=== PATIENT | female | born 1945 | race Caucasian/White ===

== ENCOUNTER 2022-08-22 07:27 | Outpatient (OUT) | payer MEDICARE, SELFPAY ==
[2022-08-22 07:59] LABS: Basophils Absolute Auto 0.1 10^3/uL (0.0-0.1); Basophils Percent Auto 0.7 % (0.2-2.0); Eosinophils Absolute Auto 0.1 10^3/uL (0.0-0.7); Hematocrit 51.1 % (36.0-48.0); Hemoglobin 16.5 g/dL (12.0-16.0); Immature Granulocytes Abs Auto 0.03 10^3/uL (0.00-0.03); Immature Granulocytes Pct Auto 0.4 % (0.0-0.5); Lymphocytes Absolute Auto 1.6 10^3/uL (1.2-3.8); Lymphocytes Percent Auto 22.8 % (20.5-60.0); Mean Corpuscular HGB Conc 32.3 g/dL (29.9-35.2); Mean Corpuscular Hemoglobin 29.3 pg (26.7-34.0); Mean Corpuscular Volume 90.6 fL (81.0-99.0); Mean Platelet Volume 9.6 fL (9.5-13.5); Monocytes Absolute Auto 0.5 10^3/uL (0.3-0.8); Monocytes Percent Auto 6.8 % (1.7-12.0); Neutrophils Absolute Auto 4.7 10^3/uL (1.4-6.5); Neutrophils Percent Auto 67.3 % (43.0-75.0); Platelet Count 297 10^3/uL (150-450); Red Blood Count 5.64 10^6/uL (4.20-5.40); White Blood Count 6.9 10^3/uL (4.0-11.0)
[2022-08-22 08:13] LABS: Bilirubin Urine NEGATIVE (NEGATIVE); Blood Urine TRACE-I (NEGATIVE); Clarity Urine CLEAR (CLEAR); Color Urine LT. YELLOW (YELLOW); Glucose Urine UA NEGATIVE (NEGATIVE); Ketones Urine NEGATIVE (NEGATIVE); Leukocyte Esterase Urine TRACE (NEGATIVE); Nitrite Urine NEGATIVE (NEGATIVE); Protein Urine NEGATIVE (NEG/TRACE); Specific Gravity Urine 1.015 (1.005-1.025); Urobilinogen Urine 0.2 EU/dL (0.2-1.0); pH Urine 5.5 (5.0-9.0)
[2022-08-22 08:19] LABS: Estimated Average Glucose 123 mg/dL; Glycohemoglobin A1C 5.9 % (4.5-6.2)
[2022-08-22 08:21] LABS: Microalbumin Urine Random <1.3 mg/dL (<=30.0)
[2022-08-22 08:26] LABS: Alanine Aminotransferase 26 U/L (14-59); Albumin Level 3.9 g/dL (3.4-5.0); Alkaline Phosphatase 95 U/L (46-116); Anion Gap 11.5; Aspartate Amino Transferase 16 U/L (15-37); Bilirubin Total 0.7 mg/dL (0.2-1.0); Calcium 9.7 mg/dL (8.5-10.1); Carbon Dioxide 31.7 mmol/L (21.0-32.0); Chloride 102 mmol/L (98-107); Chol HDL Ratio 3.8; Cholesterol 194 mg/dL (<=200); Estimated GFR (African America >60 (>=60); Estimated GFR (Non-African Ame 58 (>=60); Globulin 4.1 g/dL; Glucose 109 mg/dL (74-106); HDL Cholesterol 51 mg/dL (40-60); Potassium 3.2 mmol/L (3.5-5.1); Sodium 142 mmol/L (136-145); Triglycerides 185 mg/dL (<=150)
[2022-08-22 08:46] LABS: Bacteria Urine TRACE #/HPF (NONE SEEN); Cast Seen? NONE SEEN #/LPF (NONE SEEN); Crystals Seen? None Seen #/HPF (None Seen); Mucus Urine NONE SEEN (NONE SEEN); RBC Urine 0-2 #/HPF (0-2); Squamous Epithelial Cell Urine RARE #/LPF (NONE/RARE); WBC Urine 0-2 #/HPF (NONE SEEN)
== END 2022-08-22 07:28 | disposition home or self-care (01) ==
LOC: LAB 07:31
PROVIDERS: PCP Nurse Practitioner; Visit Provider Nurse Practitioner
DX: I10 Essential (primary) hypertension (principal); E11.9 Type 2 diabetes mellitus without complications
CPT/HCPCS: 36415; 80053; 80061; 81001; 82043; 83036; 85025

== ENCOUNTER 2022-09-04 06:59 | Outpatient (OUT) | payer MEDICARE, SELFPAY ==
--- NOTE | 2022-09-04 07:54 | CA_ITS ---
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 PVR waveforms with normal upstroke, amplitude and dicrotic notch Right: - no significant pressure gradient between cuffs - normal KVNG, TBI Left: - significant pressure gradient between the calf and DP cuffs - normal KVNG, TBI Impression: - normal arterial evaluation of the lower extremities without hemodynamic impairment of the B/L lower extremities at rest (right KVNG 1.08, left KVNG 1.04) Electronically Signed On 09-05-2022 7:25:26 EDT by JUANITA DIEGO
== END 2022-09-04 07:00 | disposition home or self-care (01) ==
PROVIDERS: PCP Nurse Practitioner; Visit Provider Nurse Practitioner
DX: I73.9 Peripheral vascular disease, unspecified (principal)
CPT/HCPCS: 93923

== ENCOUNTER 2022-09-28 08:11 | Outpatient (OUT) | payer MEDICARE, SELFPAY ==
[2022-09-28 09:02] LABS: Potassium 3.4 mmol/L (3.5-5.1)
== END 2022-09-28 08:12 | disposition home or self-care (01) ==
LOC: LAB 08:12
PROVIDERS: PCP Nurse Practitioner; Visit Provider Nurse Practitioner
DX: E87.6 Hypokalemia (principal)
CPT/HCPCS: 36415; 84132

== ENCOUNTER 2022-10-23 09:13 | Outpatient (OUT) | payer MEDICARE, SELFPAY ==
[2022-10-23 09:59] LABS: Potassium 4.1 mmol/L (3.5-5.1)
== END 2022-10-23 09:14 | disposition home or self-care (01) ==
LOC: LAB 09:14
PROVIDERS: PCP Nurse Practitioner; Visit Provider Nurse Practitioner
DX: E87.6 Hypokalemia (principal)
CPT/HCPCS: 36415; 84132

== ENCOUNTER 2022-11-14 06:44 | Outpatient (OUT) | payer MEDICARE, SELFPAY ==
[2022-11-14 07:58] LABS: Alanine Aminotransferase 27 U/L (14-59); Albumin Globulin Ratio 1.1; Alkaline Phosphatase 95 U/L (46-116); Anion Gap 10.5; Aspartate Amino Transferase 18 U/L (15-37); BUN Creatinine Ratio 16.7; Bilirubin Total 0.8 mg/dL (0.2-1.0); Calcium 9.5 mg/dL (8.5-10.1); Carbon Dioxide 31.2 mmol/L (21.0-32.0); Chloride 100 mmol/L (98-107); Chol HDL Ratio 3.5; Cholesterol 159 mg/dL (<=200); Estimated GFR (African America 53 (>=60); Estimated GFR (Non-African Ame 44 (>=60); Globulin 3.8 g/dL; Glucose 99 mg/dL (74-106); HDL Cholesterol 45 mg/dL (40-60); Potassium 3.7 mmol/L (3.5-5.1); Sodium 138 mmol/L (136-145); Total Protein 7.8 g/dL (6.4-8.2); Triglycerides 154 mg/dL (<=150); VLDL CHOLESTEROL 30.8 mg/dL
== END 2022-11-14 06:45 | disposition home or self-care (01) ==
LOC: LAB 06:45
PROVIDERS: PCP Nurse Practitioner; Visit Provider Nurse Practitioner
DX: E78.5 Hyperlipidemia, unspecified (principal)
CPT/HCPCS: 36415; 80053; 80061

== ENCOUNTER 2023-01-23 07:42 | Outpatient (OUT) | payer MEDICARE, SELFPAY ==
[2023-01-23 09:37] LABS: Alanine Aminotransferase 24 U/L (14-59); Albumin Globulin Ratio 1.1; Albumin Level 3.8 g/dL (3.4-5.0); Alkaline Phosphatase 97 U/L (46-116); Anion Gap 12.5; Aspartate Amino Transferase 17 U/L (15-37); BUN Creatinine Ratio 18.8; Bilirubin Total 0.7 mg/dL (0.2-1.0); Calcium 9.1 mg/dL (8.5-10.1); Carbon Dioxide 31.3 mmol/L (21.0-32.0); Chloride 106 mmol/L (98-107); Chol HDL Ratio 3.9; Cholesterol 200 mg/dL (<=200); Estimated GFR (African America 57 (>=60); Estimated GFR (Non-African Ame 47 (>=60); Globulin 3.6 g/dL; Glucose 101 mg/dL (74-106); HDL Cholesterol 51 mg/dL (40-60); LDL Cholesterol Calculated 123.8 mg/dL; Potassium 3.8 mmol/L (3.5-5.1); Sodium 146 mmol/L (136-145); Total Protein 7.4 g/dL (6.4-8.2); Triglycerides 126 mg/dL (<=150); VLDL CHOLESTEROL 25.2 mg/dL
[2023-01-23 09:43] LABS: Estimated Average Glucose 117 mg/dL; Glycohemoglobin A1C 5.7 % (4.5-6.2)
== END 2023-01-23 07:43 | disposition home or self-care (01) ==
LOC: LAB 07:43
PROVIDERS: PCP Nurse Practitioner; Visit Provider Nurse Practitioner
DX: E78.2 Mixed hyperlipidemia (principal); E11.9 Type 2 diabetes mellitus without complications; I10 Essential (primary) hypertension
CPT/HCPCS: 36415; 80053; 80061; 83036

== ENCOUNTER 2023-02-15 07:48 | Outpatient (OUT) | payer MEDICARE, SELFPAY ==
--- OUTSIDE RECORDS SUMMARY | 2023-02-15 07:51 | XMS_ITS | CCD ---
Author Name Unknown Address [address] [facility] [address] [place] [id number] Organization [facility] Care Team Providers Care Marketing Analytics Lead Name Role Phone PUMA, DR CHAVEZ Admitting Unavailable WANDA, DR CROCKETT Primary Care Unavailable PUMA, DR CHAVEZ Attending Unavailable PUMA, DR CHAVEZ Consulting Unavailable FLORA, DO Admitting Unavailable EMEKA, DR CAITLIN Parra Consulting Unavailable WANDA, DR CROCKETT Primary Care Unavailable FLORA, DO Attending Unavailable FLORA, DO Consulting Unavailable BINDU, BHAVNA Attending Unavailable BINDU, BHAVNA Consulting Unavailable BINDU, BHAVNA Admitting Unavailable WANDA, DR CROCKETT Primary Care Unavailable FLORA, DO Consulting Unavailable JOHS, VIKASH Consulting Unavailable Ash, Caitlin Consulting Unavailable WANDA, DR CROCKETT Attending Unavailable WANDA, DR CROCKETT Consulting Unavailable WANDA, DR CROCKETT Primary Care Unavailable HOUSE, DR CROCKETT Admitting Unavailable HOUSE, DR CROCKETT Attending Unavailable HOUSE, DR CROCKETT Consulting Unavailable HOUSE, DR CROCKETT Primary Care Unavailable HOUSE, DR CROCKETT Admitting Unavailable RANI, LALI Attending Unavailable Rani [facility], Lali Edgar Primary Care Provider Allergies Allergy Classification Reported Allergen(s) Allergy Type Date of Onset Reaction(s) Facility (1 source) Acetaminophen / HYDROcodone Drug Allergy 07-11-19 13 [facility] (1 source) Acetaminophen / oxyCODONE Drug Allergy 07-11-19 13 [facility] (1 source) Sulfonamides (Antibiotic) Drug allergy (disorder) 07-11-19 13 [facility] (1 source) Acetaminophen / HYDROcodone Drug Allergy 07-09-19 20 Hallucinations [facility] (1 source) Acetaminophen / oxyCODONE Drug Allergy 06-25-19 20 Hallucinations, Vomiting [facility] (1 source) Sulfonamides (Antibiotic) Propensity to adverse reactions to drug 10-11-19 17 Hives, Vomiting [facility] Medications Current Medications Medication Drug Class(es) Dates Sig (Normalized) Sig (Original) [id number] 200 actuat albuterol 0.09 mg/actuat metered dose inhaler (1 source) beta2-Adrener gic Agonist Start: 1 take 2 puff(s) by inhalation in the morning albuterol (PROVENTIL HFA;VENTOLIN HFA) 90 mcg/actuation inhaler Inhale 2 puffs in the morning. 0 04/30/2020 Active allopurinol 100 mg oral tablet (1 source) Xanthine Oxidase Inhibitor take 1 tablet by mouth in the morning allopurinoL (ZYLOPRIM) 100 mg tablet Take 1 tablet (100 mg total) by mouth in the morning. 0 Active atenolol 100 mg oral tablet (1 source) beta-Adrenerg ic Danielle take 1 tablet by mouth in the morning atenoloL (TENORMIN) 100 mg tablet Take 1 tablet (100 mg total) by mouth in the morning. 0 Active busPIRone hydrochloride 10 mg oral tablet (1 source) Start: 0 take 1 tablet by mouth in the morning, then take 1 tablet by mouth at bedtime busPIRone (BUSPAR) 10 mg tablet Take 1 tablet (10 mg total) by mouth in the morning and 1 tablet (10 mg total) before bedtime. 0 07/10/2019 Active hydroCHLOROthiazide 25 mg oral tablet (1 source) Thiazide Diuretic take 1 tablet by mouth once daily hydroCHLOROthiazide (HYDRODIURIL) 25 mg tablet Take 1 tablet (25 mg total) by mouth daily. 0 Active metFORMIN hydrochloride 500 mg oral tablet (1 source) Biguanide take 1 tablet by mouth once daily at breakfast metFORMIN (GLUCOPHAGE) 500 mg tablet Take 1 tablet (500 mg total) by mouth daily with breakfast. 0 Active omeprazole 20 mg delayed release oral capsule (1 source) Proton Pump Inhibitor Start: 0 take 1 capsule by mouth in the morning omeprazole (PriLOSEC) 20 mg capsule Take 1 capsule (20 mg total) by mouth in the morning. 0 06/11/2019 Active potassium chloride 10 meq extended release oral tablet (1 source) Start: 0 potassium chloride (K-TAB,KLOR-CON) 10 MEQ CR tablet Take 2 tablets (20 mEq total) by mouth daily. 90 tablet 0 09/03/2019 Active Problems Active Problems Problem Classification Problem Date Documented Da te Episodic/Chronic Anxiety disorders (1 source) Anxiety disorder, unspecified; Translations: [ANXIETY DISORDER UNSPECIFIED] Onset: 06-10-2020 Chronic Cancer of bladder (1 source) Malignant neoplasm, overlapping lesion of bladder; Translations: [Malignant neoplasm of overlapping sites of bladder] Onset: 10-10-2016 05-01-2022 Chronic Cardiac dysrhythmias (1 source) Nonsustained ventricular tachycardia ; Translations: [Nonsustained ventricular tachycardia] Onset: 06-25-2019 02-15-2022 Chronic Chronic obstructive pulmonary disease and bronchiectasis (1 source) Chronic obstructive pulmonary disease, unspecified; Translations: [COPD UNSPECIFIED] Onset: 04-28-2021 Chronic Conduction disorders (3 sources) Presence of cardiac pacemaker; Translations: [Atrioventricular conduction disorder] Onset: 07-09-2019 02-15-2022 Chronic Diabetes mellitus without complication (5 sources) Type 2 diabetes mellitus without complications; Translations: [TYPE 2 DM WITHOUT COMPLICATIONS] Onset: 02-24-2021 Chronic Esophageal disorders (1 source) Gastro-esophageal reflux disease without esophagitis; Translations: [GERD WITHOUT ESOPHAGITIS] Onset: 02-28-2021 Chronic Essential hypertension (2 sources) Essential (primary) hypertension; Translations: [Essential hypertension] Onset: 07-09-2019 02-15-2022 Chronic Gout and other crystal arthropathies (1 source) Gout, unspecified; Translations: [GOUT UNSPECIFIED] Onset: 04-28-2021 Chronic Hypertension with complications and secondary hypertension (1 source) Hypertensive chronic kidney disease with stage 1 through stage 4 chronic kidney disease, or unspecified chronic kidney disease; Translations: [HTN CKD W/STAGE 1-4 CKD/UNS CKD] Onset: 06-10-2020 Chronic Other 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 (1 source) 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; Translations: [PROP DRAWER USE ORAL HYPOGLYCEMIC DX] Onset: 04-28-2021 Episodic Other aftercare (1 source) Other [facility] (current) drug therapy; Translations: [OTH INTERMEDIATE CURRENT DRUG THERAPY] Onset: 04-28-2021 Episodic Other connective tissue disease (3 sources) Pain in left toe(s); Translations: [PAIN IN LEFT TOES] Onset: 04-27-2021 Episodic Screening and history of mental health and substance abuse codes (1 source) Personal history of nicotine dependence; Translations: [PERSONAL HISTORY OF NICOTINE DEPEND] Onset: 04-28-2021 Episodic Unclassified (1 source) CHRN KIDNEY DISEASE STG 3 UNSP; Translations: [CHRN KIDNEY DISEASE STG 3 UNSP] Onset: 06-10-2020 Unclassified (1 source) CONTACT W/AND (SUSP) EXPOS COVID-19; Translations: [CONTACT W/AND (SUSP) EXPOS COVID-19] Onset: 06-10-2020 Past or Other Problems Problem Classification Problem Date Documented Da te Episodic/Chronic Acute and unspecified renal failure (1 source) Acute kidney failure, unspecified; Translations: [ACUTE KIDNEY FAILURE UNSPECIFIED] Onset: 06-10-2020 Episodic Allergic reactions (1 source) Unspecified contact dermatitis, unspecified cause; Translations: [UNS CONTACT DERMATITIS UNS CAUSE] Onset: 05-25-2020 Episodic Conditions associated with dizziness or vertigo (1 source) Dizziness and giddiness; Translations: [DIZZINESS AND GIDDINESS] Onset: 06-10-2020 Episodic Fluid and electrolyte disorders (4 sources) Hypokalemia; Translations: [HYPOKALEMIA] Onset: 06-14-2020 Episodic Other liver diseases (1 source) Abnormal levels of other serum enzymes; Translations: [ABNORMAL LEVELS OTHER SERUM ENZYMES] Onset: 06-10-2020 Episodic Other skin disorders (3 sources) Rash and other nonspecific skin eruption; Translations: [RASH OTH NONSPECIFIC SKIN ERUPTION] Onset: 05-23-2020 Episodic Syncope (1 source) Syncope; Translations: [Syncope and collapse] Onset: 06-25-2019 02-15-2022 Episodic Results Test Name Value Interpretation Reference Range Facility URIC ACID SERUMon 04-27-2021 Urate [Mass/Vol] 7.6 mg/dL Critically high 2.5-6.2 [facility] Comment on above: Performed By: #### U LUC #### [facility] [address] [place] [address] Dr. Vicki Dempsey CBC AUTO DIFFon 02-24-2021 BASO # 0.1 103/ul Normal 0.0-0.1 [facility] Comment on above: Performed By: #### C BC #### [facility] [address] [place] [address] Dr. Vicki Dempsey Basophils/100 WBC (Bld) 1.0 % Normal 0.2-2.0 [facility] Comment on above: Performed By: #### C BC #### [facility] [address] [place] [address] Dr. Vicki Dempsey EO # 0.2 103/ul Normal 0.0-0.7 [facility] Comment on above: Performed By: #### C BC #### [facility] [address] [place] [address] Dr. Vicki Dempsey Eosinophils/100 WBC (Bld) 2.7 % Normal 0.9-7.0 [facility] Comment on above: Performed By: #### C BC #### [facility] [address] [place] [address] Dr. Vicki Dempsey Erythrocyte distribution width (RBC) [Ratio] 12.7 % Normal 11.0-15.0 [facility] Comment on above: Performed By: #### C BC #### [facility] [address] [place] [address] Dr. Vicki Dempsey Hematocrit (Bld) [Volume fraction] 51.0 % Critically high 36.0-48.0 [facility] Comment on above: Performed By: #### C BC #### [facility] [address] [place] [address] Dr. Vicki Dempsey Hemoglobin (Bld) [Mass/Vol] 16.6 g/dL Critically high 12.0-16.0 [facility] Comment on above: Performed By: #### C BC #### [facility] [address] [place] [address] Dr. Vicki Dempsey IG # 0.02 10e3/ul Normal 0.00-0.03 [facility] Comment on above: Performed By: #### C BC #### [facility] [address] [place] [address] Dr. Vicki Dempsey IG % 0.3 % Normal 0.0-0.5 [facility] Comment on above: Performed By: #### C BC #### [facility] [address] [address] [address] Vicki Dempsey LYMPH # 2.3 103/ul Normal 1.2-3.8 [facility] Comment on above: Performed By: #### C BC #### [facility] [address] [address] [address] Vicki Dempsey Lymphocytes/100 WBC (Bld) 31.1 % Normal 20.5-60.0 [facility] Comment on above: Performed By: #### C BC #### [facility] [address] [place] [address] Dr. Vicki Dempsey MANUAL DIFF REQ NO Normal [facility] Comment on above: Performed By: #### C BC #### [facility] [address] [place] [address] Dr. Vicki Dempsey MCH (RBC) [Entitic mass] 29.0 pg Normal 26.7-34.0 [facility] Comment on above: Performed By: #### C BC #### [facility] [address] [place] [address] Dr. Vicki Dempsey MCHC (RBC) [Mass/Vol] 32.5 g/dL Normal 29.9-35.2 [facility] Comment on above: Performed By: #### C BC #### [facility] [address] [place] [address] Dr. Vicki Dempsey MCV (RBC) [Entitic vol] 89.0 fL Normal 81.0-99.0 [facility] Comment on above: Performed By: #### C BC #### [facility] [address] [place] [address] Dr. Vicki Dempsey MONO # 0.6 103/ul Normal 0.3-0.8 [facility] Comment on above: Performed By: #### C BC #### [facility] [address] [place] [address] Dr. Vicki Dempsey Monocytes/100 WBC (Bld) 8.7 % Normal 1.7-12.0 [facility] Comment on above: Performed By: #### C BC #### [facility] [address] [address] [address] Vicki Dempsey NEUT # 4.1 103/ul Normal 1.4-6.5 [facility] Comment on above: Performed By: #### C BC #### [facility] [address] [address] [address] Vicki Dempsey Neutrophils/100 WBC (Bld) 56.2 % Normal 43.0-75.0 [facility] Comment on above: Performed By: #### C BC #### [facility] [address] [place] [address] Dr. Vicki Dempsey Platelet mean volume (Bld) [Entitic vol] 9.6 fL Normal 9.5-13.5 [facility] Comment on above: Performed By: #### C BC #### [facility] [address] [place] [address] Dr. Vicki Dempsey PLT 298 103/ul Normal 150-450 [facility] Comment on above: Performed By: #### C BC #### [facility] [address] [place] [address] Dr. Vicki Dempsey RBC 5.73 106/ul Critically high 4.20-5.40 [facility] Comment on above: Performed By: #### C BC #### [facility] [address] [place] [address] Dr. Vicki Dempsey WBC 7.3 103/ul Normal 4.0-11.0 [facility] Comment on above: Performed By: #### C BC #### [facility] [address] [place] [address] Dr. Vicki Dempsey GLYCOHEMOGLOBIN A1Con 2021 ADA RECOMMENDATION ADA THERAPEUTIC TARGET 6.0 - 7.0 ACTION SUGGESTED > 7.0 Normal [facility] Comment on above: Performed By: #### A 1C #### [facility] [address] [place] [address] Dr. Vicki Dempsey Glucose [Mass/Vol] 128 mg/dL Normal [facility] Comment on above: Performed By: #### A 1C #### [facility] [address] [place] [address] Dr. Vicki Dempsey HbA1c (Bld) [Mass fraction] 6.1 % Critically high <=6.0 [facility] Comment on above: Performed By: #### A 1C #### [facility] [address] [place] [address] Dr. Vicki Dempsey MICROALBUMIN, RAND URon 02-12 mALB 2.1 mg/L Normal <=30.0 [facility] Comment on above: Performed By: #### U LUC #### [facility] [address] [place] [address] Dr. Vicki Dempsey PROF 14(COMP METB)on 022 Albumin [Mass/Vol] 4.0 g/dL Normal 3.5-5.0 [facility] Comment on above: Performed By: #### C MP #### [facility] [address] [place] [address] Dr. Vicki Dempsey Albumin/Globulin [Mass ratio] 1.0 {ratio} Normal [facility] Comment on above: Performed By: #### C MP #### [facility] [address] [place] [address] Dr. Vicki Dempsey ALP [Catalytic activity/Vol] 104 U/L Normal 38-126 [facility] Comment on above: Performed By: #### C MP #### [facility] [address] [place] [address] Dr. Vicki Dempsey ALT [Catalytic activity/Vol] 30 U/L Normal 9-52 [facility] Comment on above: Performed By: #### C MP #### [facility] [address] [place] [address] Dr. Vicki Dempsey Anion gap [Moles/Vol] 11.2 mmol/L Normal [facility] Comment on above: Performed By: #### C MP #### [facility] [address] [place] [address] Dr. Vicki Dempsey AST [Catalytic activity/Vol] 19 U/L Normal 14-36 [facility] Comment on above: Performed By: #### C MP #### [facility] [address] [place] [address] Dr. Vicki Dempsey Bilirubin [Mass/Vol] 0.5 mg/dL Normal 0.2-1.3 [facility] Comment on above: Performed By: #### C MP #### [facility] [address] [address] [address] Vicki Dempsey Calcium [Mass/Vol] 9.6 mg/dL Normal 8.4-10.2 [facility] Comment on above: Performed By: #### C MP #### [facility] [address] [address] [address] Vicki Dempsey Chloride [Moles/Vol] 99 mmol/L Normal 98-107 [facility] Comment on above: Performed By: #### C MP #### [facility] [address] [place] [address] Dr. Vicki Dempsey CO2 [Moles/Vol] 32.1 mmol/L Critically high 22.0-30.0 [facility] Comment on above: Performed By: #### C MP #### [facility] [address] [place] [address] Dr. Vicki Dempsey Creatinine [Mass/Vol] 1.07 mg/dL Critically high 0.52-1.04 [facility] Comment on above: Performed By: #### C MP #### [facility] [address] [place] [address] Dr. Vicki Dempsey EGFR-AF [place]LANDER >60 Normal >=60 [facility] Comment on above: Performed By: #### C MP #### [facility] [address] [place] [address] Dr. Vicki Dempsey EGFR-NON AF [place]ER 50 mL/min/1.73m2 Critically low >=60 [facility] Comment on above: Performed By: #### C MP #### [facility] [address] [place] [address] Dr. Vicki Dempsey Globulin (S) [Mass/Vol] 3.9 g/dL Normal [facility] Comment on above: Performed By: #### C MP #### [facility] [address] [place] [address] Dr. Vicki Dempsey Glucose [Mass/Vol] 100 mg/dL Normal 74-106 [facility] Comment on above: Performed By: #### C MP #### [facility] [address] [place] [address] Dr. Vicki Dempsey Potassium [Moles/Vol] 3.3 mmol/L Critically low 3.4-5.0 [facility] Comment on above: Performed By: #### C MP #### [facility] [address] [place] [address] Dr. Vicki Dempsey Protein [Mass/Vol] 7.9 g/dL Normal 6.1-8.2 [facility] Comment on above: Performed By: #### C MP #### [facility] [address] [place] [address] Dr. Vicki Dempsey Sodium [Moles/Vol] 139 mmol/L Normal 137-145 [facility] Comment on above: Performed By: #### C MP #### [facility] [address] [place] [address] Dr. Vicki Dempsey Urea nitrogen [Mass/Vol] 13.0 mg/dL Normal 7.0-17.0 [facility] Comment on above: Performed By: #### C MP #### [facility] [address] [place] [address] Dr. Vicki Dempsey Urea nitrogen/Creatinine [Mass ratio] 12.1 mg/mg Normal [facility] Comment on above: Performed By: #### C MP #### [facility] [address] [place] [address] Dr. Vicki Dempsey PROF 14(COMP METB)on 021 Albumin [Mass/Vol] 3.8 g/dL Normal 3.5-5.0 [facility] Comment on above: Performed By: #### U LUC #### [facility] [address] [place] [address] Dr. Vicki Dempsey Albumin/Globulin [Mass ratio] 0.9 {ratio} Normal [facility] Comment on above: Performed By: #### U LUC #### [facility] [address] [place] [address] Dr. Vicki Dempsey ALP [Catalytic activity/Vol] 82 U/L Normal 38-126 [facility] Comment on above: Performed By: #### U LUC #### [facility] [address] [place] [address] Dr. Vicki Dempsey ALT [Catalytic activity/Vol] 21 U/L Normal 9-52 [facility] Comment on above: Performed By: #### U LUC #### [facility] [address] [address] [address] Vicki Dempsey Anion gap [Moles/Vol] 9.1 mmol/L Normal [facility] Comment on above: Performed By: #### U LUC #### [facility] [address] [address] [address] Vicki Dempsey AST [Catalytic activity/Vol] 16 U/L Normal 14-36 [facility] Comment on above: Performed By: #### U LUC #### [facility] [address] [place] [address] Dr. Vicki Dempsey Bilirubin [Mass/Vol] 0.7 mg/dL Normal 0.2-1.3 [facility] Comment on above: Performed By: #### U LUC #### [facility] [address] [place] [address] Dr. Vicki Dempsey Calcium [Mass/Vol] 9.6 mg/dL Normal 8.4-10.2 [facility] Comment on above: Performed By: #### U LUC #### [facility] [address] [address] [address] Vicki Dempsey Chloride [Moles/Vol] 99 mmol/L Normal 98-107 [facility] Comment on above: Performed By: #### U LUC #### [facility] [address] [address] [address] Vicki Dempsey CO2 [Moles/Vol] 33.5 mmol/L Critically high 22.0-30.0 [facility] Comment on above: Performed By: #### U LUC #### [facility] [address] [address] [address] Vicki Dempsey Creatinine [Mass/Vol] 1.04 mg/dL Normal 0.52-1.04 [facility] Comment on above: Performed By: #### U LUC #### [facility] [address] [address] [address] Vicki Dempsey EGFR-AF [place]ER >60 Normal >=60 [facility] Comment on above: Performed By: #### U LUC #### [facility] [address] [address] [address] Vicki Dempsey EGFR-NON AF [place] 52 mL/min/1.73m2 Critically low >=60 [facility] Comment on above: Performed By: #### U LUC #### [facility] [address] [address] [address] Vicki Dempsey Globulin (S) [Mass/Vol] 4.0 g/dL Normal [facility] Comment on above: Performed By: #### U LUC #### [facility] [address] [address] [address] Vicki Dempsey Glucose [Mass/Vol] 110 mg/dL Critically high 74-106 [facility] Comment on above: Performed By: #### U LUC #### [facility] [address] [address] [address] Vicki Dempsey Potassium [Moles/Vol] 3.6 mmol/L Normal 3.4-5.0 [facility] Comment on above: Performed By: #### U LUC #### [facility] [address] [address] [address] Vicki Dempsey Protein [Mass/Vol] 7.8 g/dL Normal 6.1-8.2 [facility] Comment on above: Performed By: #### U LUC #### [facility] [address] [address] [address] Vicki Dempsey Sodium [Moles/Vol] 138 mmol/L Normal 137-145 [facility] Comment on above: Performed By: #### U LUC #### [facility] [address] [address] [address] Vicki Dempsey Urea nitrogen [Mass/Vol] 21.0 mg/dL Critically high 7.0-17.0 [facility] Comment on above: Performed By: #### U LUC #### [facility] [address] [place] [address] Dr. Vicki Dempsey Urea nitrogen/Creatinine [Mass ratio] 20.2 mg/mg Normal [facility] Comment on above: Performed By: #### U LUC #### [facility] [address] [place], [place] [id number] Dr. Vicki Dempsey CBC AUTO DIFFon 06-07-2020 BASO # 0.1 103/ul Normal 0.0-0.1 [facility] Comment on above: Performed By: #### C BC #### [facility] [address] [place] [address] Joanne Jewels Basophils/100 WBC (Bld) 1.0 % Normal 0.2-2.0 [facility] Comment on above: Performed By: #### C BC #### [facility] [address] [place] [address] Joanne Jewels EO # 0.2 103/ul Normal 0.0-0.7 [facility] Comment on above: Performed By: #### C BC #### [facility] [address] [place] [address] Joanne Jewels Eosinophils/100 WBC (Bld) 3.2 % Normal 0.9-7.0 [facility] Comment on above: Performed By: #### C BC #### [facility] [address] [place] [address] Joanne Jewels Erythrocyte distribution width (RBC) [Ratio] 12.7 % Normal 11.0-15.0 [facility] Comment on above: Performed By: #### C BC #### [facility] Laboratory [address] [place] [address] Joanne Jewels Hematocrit (Bld) [Volume fraction] 47.8 % Normal 36.0-48.0 [facility] Comment on above: Performed By: #### C BC #### [facility] Laboratory [address] [place], [place] [id number] Joanne Jewels Hemoglobin (Bld) [Mass/Vol] 15.5 g/dL Normal 12.0-16.0 [facility] Comment on above: Performed By: #### C BC #### [facility] Laboratory [address] [address] Joanne Jewels IG # 0.02 10e3/ul Normal 0.00-0.03 [facility] Comment on above: Performed By: #### C BC #### [facility] Laboratory [address] [place] [address] Joanne Jewels IG % 0.3 % Normal 0.0-0.5 [facility] Comment on above: Performed By: #### C BC #### [facility] Laboratory [address] [place] [address] Joanne Jewels LYMPH # 2.1 103/ul Normal 1.2-3.8 [facility] Comment on above: Performed By: #### C BC #### [facility] Laboratory [address] [place] [address] Joanne Jewels Lymphocytes/100 WBC (Bld) 34.8 % Normal 20.5-60.0 [facility] Comment on above: Performed By: #### C BC #### [facility] Laboratory [address] [place] [address] Joanne Jewels MANUAL DIFF REQ NO Normal [facility] Comment on above: Performed By: #### C BC #### [facility] Laboratory [address] [place] [address] Joanne Jewels MCH (RBC) [Entitic mass] 28.5 pg Normal 26.7-34.0 [facility] Comment on above: Performed By: #### C BC #### [facility] Laboratory [address] [place] [address] Joanne Jewels MCHC (RBC) [Mass/Vol] 32.4 g/dL Normal 29.9-35.2 [facility] Comment on above: Performed By: #### C BC #### [facility] Laboratory [address] [place], [place] [id number] Joanne Jewels MCV (RBC) [Entitic vol] 87.9 fL Normal 81.0-99.0 [facility] Comment on above: Performed By: #### C BC #### [facility] Laboratory [address] [place] [address] Joanne Donis MONO # 0.7 103/ul Normal 0.3-0.8 [facility] Comment on above: Performed By: #### C BC #### [facility] Laboratory [address] [place], [place] [id number] Joanne Donis Monocytes/100 WBC (Bld) 11.1 % Normal 1.7-12.0 [facility] Comment on above: Performed By: #### C BC #### [facility] Laboratory [address] [place] [address] Joanne Donis NEUT # 3.0 103/ul Normal 1.4-6.5 [facility] Comment on above: Performed By: #### C BC #### [facility] Laboratory [address] [place] [address] Joanne Donis Neutrophils/100 WBC (Bld) 49.6 % Normal 43.0-75.0 [facility] Comment on above: Performed By: #### C BC #### [facility] Laboratory [address] [place] [address] Joanne Donis Platelet mean volume (Bld) [Entitic vol] 9.9 fL Normal 9.5-13.5 [facility] Comment on above: Performed By: #### C BC #### [facility] Laboratory [address] [place] [address] Joanne Donis PLT 248 103/ul Normal 150-450 [facility] Comment on above: Performed By: #### C BC #### [facility] Laboratory [address] [place], [place] [id number] Joanne Donis RBC 5.44 106/ul Critically high 4.20-5.40 [facility] Comment on above: Performed By: #### C BC #### [facility] Laboratory [address] [place], [place] [id number] Joanne Donis WBC 6.0 103/ul Normal 4.0-11.0 [facility] Comment on above: Performed By: #### C BC #### [facility] Laboratory [address] [place] [address] Joanne Donis ECHO LIMITED STUDYon 26-2 021 ECHO LIMITED STUDY Patient: JEWELS MARQUEZ Exam Date: 06/07/2020 : 1945 Gender:F Ordering : DR. BHAVNA RUANO . Admission #: [id number] Family : DR KALLI LOVETT D.O. Order #: [id number] CLICK HERE TO VIEW EXAM ECHOCARDIOGRAM REPORT PROCEDURE: CARDIO PULMONARY ECHO LIMITED STUDY INDICATIONS: Elevated troponin, pacemaker, DM, HTN COMPARISON: None. DESCRIPTION: Limited ECHOCARDIOGRAM Real-time transthoracic echocardiography with 2D and M-mode performed. QUALITY: Technical quality was good. Limited Echocardiogram per order LEFT VENTRICLE: Normal chamber size. Borderline left ventricular hypertrophy. LV EF: Lower limits of normal left ventricular ejection fraction, (50-55%). DIASTOLIC: ATRIAL SEPTUM: LEFT ATRIUM: Mildly dilated. RIGHT ATRIUM: Normal chamber size. RIGHT VENTRICLE: Normal chamber size. Pacer wire present. TRICUSPID VALVE: Normal mobility and thickness. MITRAL VALVE: Normal mobility and thickness. AORTIC VALVE: Normal trileaflet appearance. Normal leaflet mobility. AORTIC ROOT: Normal diameter and appearance. PULMONIC VALVE: Normal thickness and mobility. PERICARDIUM: No evidence of pericardial effusion. IVC: Collapes with inspirations. PLEURA: CONCLUSION: 1. Low normal ventricular systolic function. 2. Mildly dilated left atrium. 3. No pericardial effusion. 4. Limited study with no Doppler performed as requested. Adult Echocardiography Procedure Report Left Ventricle LVEDD (3.7 - 5.6 cm): 3.30 cm LVESD (2.2 - 4.0 cm): 2.07 cm LVIVS thickness (0.6 - 1.2 cm): 1.40 cm LVPW thickness (0.5 - 1.0 cm): 1.07 cm LVOT Area (cm2): 4.15 cm2 LVOT Diameter 2.30 cm Left Ventricular Ejection Fraction: 68.50 % Left Atrium LA Volume Index (2D A2C): 24 ml/m2 Left Atrium Systolic Dimension: 4.20 cm Left Atrium Systolic Area(A2C): 16.10 cm2 Left Atrium Systolic Area(A4C): 16.30 cm2 Left Atrium Systolic Volume(A2C): 97724 mm3 Left Atrium Systolic Volume(A4C): 62612 mm3 Mitral Valve Right Ventricle Aorta AO Root Diam: 3.00 cm Aortic Valve Tricuspid Valve Pulmonic Valve Right Atrium Dictated by: Lj Bradley M.D. on 06/07/2020 at 17:50 Approved by: Lj Bradley M.D. on 06/07/2020 at 17:52 Normal [facility] POINT OF CARE GLUCOSEon 05-14 Glucose [Mass/Vol] 101 mg/dL Normal 74-106 [facility] Comment on above: Performed By: #### U LUC #### [facility] Laboratory [address] [address] [address] Vicki Dempsey PROF CHEM 8 (BAS METB)on Anion gap [Moles/Vol] 7.4 mmol/L Normal [facility] Comment on above: Performed By: #### B MP #### [facility] Laboratory [address] [address] Joanne Jewels Calcium [Mass/Vol] 9.3 mg/dL Normal 8.4-10.2 [facility] Comment on above: Performed By: #### B MP #### [facility] Laboratory [address] [address] Joanne Jewels Chloride [Moles/Vol] 105 mmol/L Normal 98-107 [facility] Comment on above: Performed By: #### B MP #### [facility] Laboratory [address] [address] Joanne Jewels CO2 [Moles/Vol] 31.7 mmol/L Critically high 22.0-30.0 [facility] Comment on above: Performed By: #### B MP #### [facility] Laboratory [address] [address] Joanne Jewels Creatinine [Mass/Vol] 1.08 mg/dL Critically high 0.52-1.04 [facility] Comment on above: Performed By: #### B MP #### [facility] Laboratory [address] [id number] Joanne Jewels EGFR-AF SOLOMON ISLANDER =60 Normal >=60 [facility] Comment on above: Performed By: #### B MP #### [facility] Laboratory [address] [address] Joanne Jewels EGFR-NON AF [place]LANDER 50 mL/min/1.73m2 Critically low >=60 [facility] Comment on above: Performed By: #### B MP #### [facility] Laboratory [address] [address] Joanne Jewels Glucose [Mass/Vol] 111 mg/dL Critically high 74-106 [facility] Comment on above: Performed By: #### B MP #### [facility] Laboratory [address] [address] Joanne Jewels Potassium [Moles/Vol] 3.1 mmol/L Critically low 3.4-5.0 [facility] Comment on above: Performed By: #### B MP #### [facility] Laboratory [address] [address] Joanne Jewels Sodium [Moles/Vol] 141 mmol/L Normal 137-145 [facility] Comment on above: Performed By: #### B MP #### [facility] Laboratory [address] [place] [address] Joanne Jewels Urea nitrogen [Mass/Vol] 20.0 mg/dL Critically high 7.0-17.0 [facility] Comment on above: Performed By: #### B MP #### [facility] Laboratory [address] [place] [address] Joanne Jewels Urea nitrogen/Creatinine [Mass ratio] 18.5 mg/mg Normal [facility] Comment on above: Performed By: #### B MP #### [facility] Laboratory [address] [place] [address] Joanne Jewels CBC AUTO DIFFon 06-06-2020 BASO # 0.1 103/ul Normal 0.0-0.1 [facility] Comment on above: Performed By: #### U LUC #### [facility] Laboratory [address] [place] [address] Dr. Vicki Dempsey Basophils/100 WBC (Bld) 0.9 % Normal 0.2-2.0 [facility] Comment on above: Performed By: #### U LUC #### [facility] Laboratory [address] [place] [address] Dr. Vicki Dempsey EO # 0.1 103/ul Normal 0.0-0.7 [facility] Comment on above: Performed By: #### U LUC #### [facility] Laboratory [address] [place] [address] Dr. Vicki Dempsey Eosinophils/100 WBC (Bld) 1.9 % Normal 0.9-7.0 [facility] Comment on above: Performed By: #### U LUC #### [facility] Laboratory [address] [place] [address] Dr. Vicki Dempsey Erythrocyte distribution width (RBC) [Ratio] 12.6 % Normal 11.0-15.0 [facility] Comment on above: Performed By: #### U LUC #### [facility] Laboratory [address] [place] [address] Dr. Vicki Dempsey Hematocrit (Bld) [Volume fraction] 51.7 % Critically high 36.0-48.0 [facility] Comment on above: Performed By: #### U LUC #### [facility] Laboratory [address] [place] [address] Dr. Vicki Dempsey Hemoglobin (Bld) [Mass/Vol] 17.6 g/dL Critically high 12.0-16.0 [facility] Comment on above: Performed By: #### U LUC #### [facility] Laboratory [address] [place] [address] Dr. Vicki Dempsey IG # 0.02 10e3/ul Normal 0.00-0.03 [facility] Comment on above: Performed By: #### U LUC #### [facility] Laboratory [address] [place] [address] Dr. Vicki Dempsey IG % 0.3 % Normal 0.0-0.5 [facility] Comment on above: Performed By: #### U LUC #### [facility] Laboratory [address] [place] [address] Dr. Vicki Dempsey LYMPH # 1.8 103/ul Normal 1.2-3.8 [facility] Comment on above: Performed By: #### U LUC #### [facility] Laboratory [address] [place] [address] Dr. Vicki Dempsey Lymphocytes/100 WBC (Bld) 23.8 % Normal 20.5-60.0 [facility] Comment on above: Performed By: #### U LUC #### [facility] Laboratory [address] [place] [address] Dr. Vicki Dempsey MANUAL DIFF REQ NO Normal [facility] Comment on above: Performed By: #### U LUC #### [facility] Laboratory [address] [place] [address] Dr. Vicki Dempsey MCH (RBC) [Entitic mass] 29.1 pg Normal 26.7-34.0 [facility] Comment on above: Performed By: #### U LUC #### [facility] Laboratory [address] [place] [address] Dr. Vicki Dempsey MCHC (RBC) [Mass/Vol] 34.0 g/dL Normal 29.9-35.2 [facility] Comment on above: Performed By: #### U LUC #### [facility] Laboratory [address] [place] [address] Dr. Vicki Dempsey MCV (RBC) [Entitic vol] 85.5 fL Normal 81.0-99.0 [facility] Comment on above: Performed By: #### U LUC #### [facility] Laboratory [address] [place] [address] Dr. Vicki Dempsey MONO # 0.7 103/ul Normal 0.3-0.8 [facility] Comment on above: Performed By: #### U LUC #### [facility] Laboratory [address] [place] [address] Dr. Vicki Dempsey Monocytes/100 WBC (Bld) 9.4 % Normal 1.7-12.0 [facility] Comment on above: Performed By: #### U LUC #### [facility] Laboratory [address] [place] [address] Dr. Vicki Dempsey NEUT # 4.8 103/ul Normal 1.4-6.5 [facility] Comment on above: Performed By: #### U LUC #### [facility] Laboratory [address] [place] [address] Dr. Vicki Dempsey Neutrophils/100 WBC (Bld) 63.7 % Normal 43.0-75.0 [facility] Comment on above: Performed By: #### U LUC #### [facility] Laboratory [address] [place] [address] Dr. Vicki Dempsey Platelet mean volume (Bld) [Entitic vol] 10.1 fL Normal 9.5-13.5 [facility] Comment on above: Performed By: #### U LUC #### [facility] Laboratory [address] [address] [address] Vicki Dempsey PLT 309 103/ul Normal 150-450 [facility] Comment on above: Performed By: #### U LUC #### [facility] Laboratory [address] [place] [address] Dr. Vicki Dempsey RBC 6.05 106/ul Critically high 4.20-5.40 [facility] Comment on above: Performed By: #### U LUC #### [facility] Laboratory [address] [place] [address] Dr. Vicki Dempsey WBC 7.5 103/ul Normal 4.0-11.0 [facility] Comment on above: Performed By: #### U LUC #### [facility] Laboratory [address] [place] [address] Dr. Vicki Dempsey POINT OF CARE GLUCOSEon 05-14 Glucose [Mass/Vol] 114 mg/dL Critically high 74-106 [facility] Comment on above: Performed By: #### U LUC #### [facility] Laboratory [address] [place] [address] Dr. Vicki Dempsey PROF 14(COMP METB)on 021 Albumin [Mass/Vol] 4.0 g/dL Normal 3.5-5.0 [facility] Comment on above: Performed By: #### H SHARMAINEPN, CMP #### [facility] Laboratory [address] [place] [address] Joanne Jewels Albumin/Globulin [Mass ratio] 0.9 {ratio} Normal [facility] Comment on above: Performed By: #### H SHARMAINEPN, CMP #### [facility] Laboratory [address] [place] [address] Joanne Jewels ALP [Catalytic activity/Vol] 91 U/L Normal 38-126 [facility] Comment on above: Performed By: #### H FELECIA, CMP #### [facility] [address] [place], [place] [address] Joanne Jewels ALT [Catalytic activity/Vol] 29 U/L Normal 9-52 [facility] Comment on above: Performed By: #### H FELECIA, CMP #### [facility] Laboratory [address] [place], [place] [address] Joanne Jewels Anion gap [Moles/Vol] 10.9 mmol/L Normal [facility] Comment on above: Performed By: #### H FELECIA, CMP #### [facility] Laboratory [address] [address] Joanne Jewels AST [Catalytic activity/Vol] 22 U/L Normal 14-36 [facility] Comment on above: Performed By: #### H FELECIA, CMP #### [facility] Laboratory [address] [address] Joanne Jewels Bilirubin [Mass/Vol] 0.8 mg/dL Normal 0.2-1.3 [facility] Comment on above: Performed By: #### H FELECIA, CMP #### [facility] Laboratory [address] [address] Joanne Jewels Calcium [Mass/Vol] 9.6 mg/dL Normal 8.4-10.2 [facility] Comment on above: Performed By: #### H FELECIA, CMP #### [facility] [address] [address] Joanne Jewels Chloride [Moles/Vol] 98 mmol/L Normal 98-107 [facility] Comment on above: Performed By: #### H FELECIA, CMP #### [facility] Laboratory [address] [address] Joanne Jewels CO2 [Moles/Vol] 30.8 mmol/L Critically high 22.0-30.0 [facility] Comment on above: Performed By: #### H FELECIA, CMP #### [facility] Laboratory [address] [address] Joanne Jewels Creatinine [Mass/Vol] 1.20 mg/dL Critically high 0.52-1.04 [facility] Comment on above: Performed By: #### H SHARMAINEJAYESH, CMP #### [facility] [address] [place], [place] [address] Joanne Jewels EGFR-AF [place]LANDER 53 mL/min/1.73m2 Critically low >=60 [facility] Comment on above: Performed By: #### H STROPN, CMP #### [facility] Laboratory [address] [id number] Joanne Jewels EGFR-NON AF [place] 44 mL/min/1.73m2 Critically low >=60 [facility] Comment on above: Performed By: #### H STROPN, CMP #### [facility] [address] [id number] Joanne Jewels Globulin (S) [Mass/Vol] 4.4 g/dL Normal [facility] Comment on above: Performed By: #### H STROJAYESH, CMP #### [facility] Laboratory [address] [address] Joanne Jewels Glucose [Mass/Vol] 124 mg/dL Critically high 74-106 [facility] Comment on above: Performed By: #### H STROJAYESH, CMP #### [facility] Laboratory [address] [address] Joanne Jewels Potassium [Moles/Vol] 2.7 mmol/L Critically low 3.4-5.0 [facility] Comment on above: Result Comment: Test repeated. Critical value verified. Performed By: #### H STROJAYESH, CMP #### [facility] Laboratory [address] [id number] Joanne Jewels Protein [Mass/Vol] 8.4 g/dL Critically high 6.1-8.2 [facility] Comment on above: Performed By: #### H STROPN, CMP #### [facility] Laboratory [address] [id number] Joanne Jewels Sodium [Moles/Vol] 137 mmol/L Normal 137-145 [facility] Comment on above: Performed By: #### H STROPN, CMP #### [facility] Laboratory [address] [id number] Joanne Jewels Urea nitrogen [Mass/Vol] 18.0 mg/dL Critically high 7.0-17.0 [facility] Comment on above: Performed By: #### H SHARMAINEPN, CMP #### [facility] Laboratory [address] [place] [address] Joanne Donis Urea nitrogen/Creatinine [Mass ratio] 15.0 mg/mg Normal [facility] Comment on above: Performed By: #### H SHARMAINEPN, CMP #### [facility] Laboratory [address] [place] [address] Joanne Donis Rapid Covid-19 PCR (CVDRPD)o n 06-06-2020 SARS-CoV-2 (COVID-19) RNA TANMAY+probe Ql (Unsp spec) Not detected Normal NOT DETECTED [facility] Comment on above: Result Comment: This test is not yet approved or cleared by the [place] Food and Drug Administration (FDA). This test was developed by [employer], [place], [place]. The performance characteristics of this test were validated by [facility]. The results are not intended to be used as the sole means for clinical diagnosis or patient management decisions. [facility] is authorized under Clinical Laboratory Improvement Amendments (CLIA) to perform high- complexity testing. When diagnostic testing is negative, the possibility of a false negative should be considered in the context of a patient's recent exposures and the presence of clinical signs and symptoms consistent with SARS-CoV-2. Performed By: #### C VDRPD #### [facility] Laboratory [address] [place] [address] Joanne Donis TROPONIN, HIGH SENSITIVITYon 06-06-2020 HSTROP 64.1 pg/mL Critically high 4.0-35.5 [facility] Comment on above: Result Comment: CUT- OFF POINTS HAVE BEEN ESTABLISHED BASED ON THE FOURTH UNIVERSAL DEFINITIONS OF MYOCARDIAL INFARCTION. THE UPPER REFERENCE LIMIT (URL) OF TROPONIN, DEFINED THE 99TH PERCENTILE OF cTnI DISTRIBUTION IN A REFERENCE POPULATION, HAS BEEN CONFIRMED THE DECISION THRESHOLD FOR ND DIAGNOSIS. Test repeated. Critical value verified. Performed By: #### H STROPN #### [facility] Laboratory [address] [place] [address] Joanne Donis HSTROP 66.3 pg/mL Critically high 4.0-35.5 [facility] Comment on above: Result Comment: CUT- OFF POINTS HAVE BEEN ESTABLISHED BASED ON THE FOURTH UNIVERSAL DEFINITIONS OF MYOCARDIAL INFARCTION. THE UPPER REFERENCE LIMIT (URL) OF TROPONIN, DEFINED THE 99TH PERCENTILE OF cTnI DISTRIBUTION IN A REFERENCE POPULATION, HAS BEEN CONFIRMED THE DECISION THRESHOLD FOR ND DIAGNOSIS. Test repeated. Critical value verified. Performed By: #### H STROPN, CMP #### [facility] Laboratory [address] [id number] Joanne Donis XR CHEST 1 Von 06-06-2020 XR CHEST 1 V EXAM: XR CHEST 1 V HISTORY: SHORTNESS OF BREATH week. Dizzy. COMPARISON: None TECHNIQUE: AP portable erect chest FINDINGS: Lungs clear of acute pneumonic consolidation. No pneumothorax or definitive pleural effusion. Cardiomegaly. The stomach contours within normal limit. Calcified atherosclerotic aorta. Dual-lead transvenous pacer projects over the left chest. 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 IMPRESSION: No acute pneumonic consolidation. Cardiomegaly. Electronically authenticated by: CAITLIN GUERRERO Date: 2020-06-06 14:01 Normal [facility] Encounters Encounter Date Encounter Type Care Provider Facility Start: 02-06-2023 Telephone encounter Lali Arrington PHONOGRAPH MECHANIC [facility] Start: 01-22-2023 End: 01-22-2023 ambulatory LALI SARAVIA Not Available Start: 04-27-2021 End: 04-27-2021 ambulatory DO HINES Facility:[facility] Start: 02-24-2021 End: 02-25-[address] BON MUÑOZ Facility:[facility] Start: 06-14-2020 End: 06-15-[address] BON MUÑOZ Facility:[facility] Start: 06-06-2020 End: 06-07-2020 ambulatory BHAVNA RUANO Facility:[facility] Start: 05-23-2020 End: 05-23-[address] KATHY BARTHOLOMEW Facility:[facility] Procedures Date Procedure Procedure Detail Performing Clinician Start: 11-03-2021 Colonoscopy Lali Arrington CMA Plan of Treatment Date Care Activity Detail Author Start: 11-03-2026 Screening for malignant neoplasm of colon Colonoscopy [facility] Start: 03-10-2023 Adult BMI Screening Adult BMI Screening [facility] Start: 02-15-2023 Tobacco Screening Tobacco Screening [facility] Start: 02-07-2023 End: 02-07-2023 Clinical Support [facility] Start: 05-04-2011 Fall Risk Screening Fall Risk Screening [facility] Start: 1965 Administration of varicella zoster vaccine Zoster (Shingles) Vaccine (1 of 2) [facility] Start: 1965 DTaP,Tdap and Td Vaccines (1 - Tdap) DTaP,Tdap and Td Vaccines (1 - Tdap) [facility] Start: 1964 Adult BMI Follow Up Plan Adult BMI Follow Up Plan [facility] Start: 1958 Depression Screening Depression Screening [facility] Start: 1945 Medicare Annual Wellness Visit Medicare Annual Wellness Visit [facility] Immunizations Immunization Date Immunization Notes Care Provider Fa cility 10-29-2018 influenza, high dose seasonal, preservative-free Lali Nury [facility] 10-29-2018 pneumococcal polysaccharide vaccine, 23 valent Lali Nury [facility] 12-18-2017 influenza, injectabl e, quadrivalent, preservative free Lali Nury [facility] 11-17-2016 Seasonal trivalent influenza vaccine, adjuvanted, preservative free Lali Nury [facility] 10-31-2016 influenza, injectabl e, quadrivalent, preservative free Lali Nury [facility] 09-25-2016 pneumococcal polysaccharide vaccine, 23 valent Lali Nury [facility] 12-11-2015 influenza, high dose seasonal, preservative-free Lali Nury [facility] 11-06-2012 influenza virus vacc ine, whole virus Lali Nury [facility] 11-14-2011 influenza virus vacc ine, whole virus Lali Nury [facility] 11-09-2010 influenza virus vacc ine, whole virus Lali Nury [facility] 11-24-2009 influenza virus vacc ine, whole virus Lali Nury [facility] 11-18-2008 influenza virus vacc ine, whole virus Lali Nury [facility] Payers Date Payer Category Payer Private Health Insurance [facility] SUPPLEMENT [id number] 2012-Present [phone] [address] [place] [address] [id number] 2011 Medicare MEDICARE MEDICAR E RAILROAD [id number] 2011-Present [phone] [address] [address] [place] [address] [id number] 1959 Medicare [id number] 1959 Unknown [id number] 1945 Unknown [id number] 1945 Unknown [id number] 1945 Unknown [id number] 1946 Unknown [id number] 1946 Unknown [id number] 1945 Unknown [id number] Social History Date Type Detail Facility Start: [facility]03[facility] End: 02-12-1995 History of tobacco use Current smoker [facility] End: 02-12-1995 History of tobacco use Cigarette Smoker [facility] Start: 02-24-2020 End: 10-03-2021 Cigarettes smoked current (pack per day) - Reported 0.5 [facility] Start: 10-03-2021 Tobacco use and exposure Smokeless tobacco non-user [facility] Start: 03-10-2022 Alcohol intake 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) [facility] Start: 02-24-2020 End: 02-15-2022 Tobacco use panel [facility] Housing Instability Unknown [facility] Start: 1945 Sex Assigned At Female P [facility] Start: 07-12-2020 Gender identity Identifies as female gender (finding) [facility] Start: 07-12-2020 Sexual orientation Heterosexual (susan palmer) [facility] Medical Equipment Procedure Code Equipment Code Equipment Origin al Text Equipment Identifier Dates Lead Capsure Fix Novus [id number] - [id number] - [id number] Start: 06-27-2019 Cardiac pacemaker, device (physical object) ([id number]) Pcmkr Rafael Gonzalez [employer] Crd - [id number] - [id number] Start: 06-27-2019 Note 02-06-2023 Telephone Encounter - Lali Arrington CMA - 02/06/2023 9:38 AM EST Note Date & Type Note Facility 02-06-2023 Miscellaneous Notes Formattin g of this note might be different from the original. Called patient to remind them to bring their most current copy of their medication list with them to their appt. Patient verbalizes understanding. documented in this encounter [facility] Telephone encounter Note 02-06-2023 Telephone Encounter - Lali Arrington CMA - 02/06/2023 9:38 AM EST Note Date & Type Note Facility 02-06-2023 Telephone encount er Note Called patient to remind them to bring their most current copy of their medication list with them to their appt. Patient verbalizes understanding. [facility] Clinical Note 04-27-2021 Note Date & Type Note Facility 04-27-2021 Note PROCEDURE: XR FOOT L T MIN 3 VIEWS COMPARISON: None. HISTORY: Pain FINDINGS: BONES:No acute fracture or dislocation. Mild to moderate enthesopathic spurring plantar calcaneus SOFT TISSUES:Negative. No visible soft tissue swelling. EFFUSION:None visible. OTHER: Negative. IMPRESSION: No acute abnormality Electronically authenticated by: CAITLIN HENDRICKSON Date: 2021-04-27 13:13 [facility] Instructions Note Date & Type Note Facility Instructions Not on filedocumented in this en counter [facility] Summary Purpose Family History No Family History Records FoundNo Family History Records Found Advance Directives Latest Code Status on File Code Status Date Activated Date Inactivated Comments Full Code 06/25/2019 4:11 PM 06/28/2019 6:33 PM Additional Source Comments INFORMATION SOURCE (unrecogn ized section and content) DATE CREATED AUTHOR 04/29/2021 [facility] DATE CREATED AUTHOR AUTHOR'S ORGANIZ ATION 01/23/2023 [facility] EPIC Care Teams (unrecognized sec tion and content) Marketing Analytics Lead Relationship Specialty Start Date End Date Lali Saravia, [facility] [address] [place] [id number] PCP - General Nurse Practitioner 01/29/23 FOR RECORDS PERTAINING TO PATIENTS WHO ARE OR HAVE BEEN ENROLLED IN A CHEMICAL DEPENDENCY/SUBSTANCEABUSE PROGRAM, SOME INFORMATION MAY BE OMITTED. This clinical summary was aggregated from multiple sources. Caution should be exercised in using it in the provision of clinical care. This summary normalizes information from multiple sources, and as a consequence, information in this document may materially change the coding, format and clinical context of patient data. In addition, data may be omitted in some cases. CLINICAL DECISIONS SHOULD BE BASED ON THE PRIMARY CLINICAL RECORDS. [facility]. provides no warranty or guarantee of the accuracy or completeness of information in this document.
--- NOTE | 2023-02-15 09:03 | CA_ITS ---
Patient Name: PREET MARQUEZ MR#: [id number] : 1945 Exam Date: 02/15/2023 Ordering Doctor: DR RAJWINDER ALEXANDER ECHOCARDIOGRAM REPORT PROCEDURE: CA ECHO DOPPLER COMPLETE INDICATIONS: Nonsustained ventricular tachycardia, pacemaker, COPD, emphysema COMPARISON: None. DESCRIPTION: COMPLETE ECHOCARDIOGRAM Real-time transthoracic echocardiography with 2D, M-mode, spectral and color flow Doppler performed. QUALITY: Technical quality was good. 63 , 153#, BSA 1.73 m2 LEFT VENTRICLE: Small chamber size. Moderate concentric left ventricular hypertrophy. LV EF: Global left ventricular systolic function is hyperdynamic; visually estimated ejection fraction 65 to 70%. No obvious segmental wall motion abnormalities. DIASTOLIC: Diastolic function is indeterminate. ATRIAL SEPTUM: Visually appears intact. LEFT ATRIUM: Normal chamber size. RIGHT ATRIUM: Normal chamber size. RIGHT VENTRICLE: Normal chamber size. Normal systolic function. Pacer wire present. TRICUSPID VALVE: Normal mobility and thickness. Mild to moderate regurgitation. Doppler studies reveal mildly (35-45) elevated right sided pressures. RVSP 39 mmHg MITRAL VALVE: Normal mobility and thickness. No evidence of mitral valve stenosis. There is no mitral annular calcification. No mitral regurgitation. AORTIC VALVE: Normal trileaflet appearance. No visible sclerosis. Normal leaflet mobility. No evidence of aortic valve stenosis. No aortic regurgitation. AORTIC ROOT: Normal diameter and appearance. PULMONIC VALVE: Normal thickness and mobility. No stenosis. Trivial regurgitation. PERICARDIUM: No evidence of pericardial effusion. IVC: Collapses with inspirations. CONCLUSION: 1. Global left ventricular systolic function is hyperdynamic; visually estimated ejection fraction 65 to 70% 2. Moderately increased left ventricular wall thickness 3. The right ventricle is normal in size and systolic function 4. Diastolic function is indeterminate 5. Mild to moderate tricuspid regurgitation 6. Mildly elevated ventricular systolic pressure; RVSP 39 mmHg Adult Echocardiography Procedure Report Left Ventricle LVEDD (3.7 - 5.6 cm): 3.45 cm LVESD (2.2 - 4.0 cm): 1.97 cm LVIVS thickness (0.6 - 1.2 cm): 1.25 cm LVPW thickness (0.5 - 1.0 cm): 9.64 mm LVOT Max Gradient: 2 mm[Hg] Peak Velocity (LVOT): 67.70 cm/s Mean Velocity (LVOT): 46.40 cm/s LVOT Diameter 2.00 cm Left Ventricular Ejection Fraction: 75.20 % Left Atrium LA Volume Index (2D A2C): 99097 mm3 Left Atrium Systolic Dimension: 3.40 cm Mitral Valve MV E to A Ratio: 0.40 Mitral Valve A-Wave Peak Velocity: 89.80 cm/s Mitral Valve E-Wave Peak Velocity: 35.00 cm/s Cardiovascular Orifice Area: 0.68 cm2 Right Ventricle Aorta AO Root Diam: 2.50 cm Aortic Valve AoV Area (Peak Yaya): 2.02 cm2 AoV Area (VTI): 1.78 cm2 Peak Velocity(Antegrade Flow): 105.00 cm/s Peak Gradient(Antegrade Flow): 4 mm[Hg] Mean Velocity(Antegrade Flow): 76.00 cm/s Mean Gradient(Antegrade Flow): 3 mm[Hg] Velocity Time Integral: 23.10 cm Tricuspid Valve Peak Velocity (Regurgitant Flow): 300.00 cm/s Peak Velocity: 56.80 cm/s Pulmonic Valve Peak Velocity: 94.50 cm/s, 76.00 cm/s Peak Gradient: 3 mm[Hg] Right Atrium Dictated by: Venkat Ryder M.D. on 02/20/2023 at 10:59 Approved by: Venkat Ryder M.D. on 02/20/2023 at 11:08
== END 2023-02-15 07:49 | disposition home or self-care (01) ==
LOC: CARD 07:49
PROVIDERS: PCP Nurse Practitioner
DX: I47.29 Other ventricular tachycardia (principal)
CPT/HCPCS: 93306

== ENCOUNTER 2023-02-23 08:41 | Emergency (ER) | payer MEDICARE, SELFPAY ==
[2023-02-23] VITALS (14 sets, daily range): BP systolic 145–192; BP diastolic 55–128; PULSE 61–80; RESP 14–18; TEMP 36.5; O2SAT 95–98; BMI 26.6
--- OUTSIDE RECORDS SUMMARY | 2023-02-23 08:49 | XMS_ITS | CCD ---
Author Name Unknown Address [id number] [place] [address] Organization [facility] Care Team Providers Care Environment Artist Name Role Phone PUMA, DR CHAVEZ Admitting [...] Primary Care Unavailable FLORA, DO Consulting Unavailable JOSH, VIKASH Consulting Unavailable Ash, Caitlin Consulting Unavailable WANDA, DR CROCKETT Attending Unavailable HOUSE, DR CROCKETT Consulting Unavailable HOUSE, DR CROCKETT Primary Care Unavailable HOUSE, DR CROCKETT Admitting Unavailable HOUSE, DR CROCKETT Attending Unavailable HOUSE, DR CROCKETT Consulting Unavailable HOUSE, DR CROCKETT Primary Care Unavailable HOUSE, DR CROCKETT Admitting Unavailable Lali Dominguez Primary Care Provider LALI SARAVIA Attending Unavailable LALI SARAVIA Attending Unavailable Allergies Allergy Classification Reported Allergen(s) Allergy Type Date of Onset Reaction(s) Facility (1 source) Acetaminophen / HYDROcodone Drug Allergy 07-11-19 13 [facility] (1 source) Acetaminophen / oxyCODONE Drug Allergy 07-11-19 13 [facility] (1 source) Sulfonamides (Antibiotic) Drug allergy (disorder) 07-11-19 13 [facility] (1 source) Acetaminophen / HYDROcodone Drug Allergy 07-09-19 Hallucinations [facility] (1 source) Acetaminophen / oxyCODONE Drug Allergy 06-25-19 Hallucinations, Vomiting [facility] (1 source) Sulfonamides (Antibiotic) Propensity to adverse reactions to drug 10-11-19 17 Hives, Vomiting [facility] Medications Current Medications Medication Drug Class(es) Dates Sig (Normalized) Sig (Original) [id number] 200 actuat albuterol 0.09 mg/actuat metered dose [...] Onset: 06-10-2020 Chronic Other aftercare (1 source) retirement (current) use of oral hypoglycemic drugs; Translations: [[facility] USE ORAL HYPOGLYCEMIC DX] Onset: 04-28-2021 Episodic Other aftercare (1 source) Other intermediate manager (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 Vicki Dempsey CBC AUTO DIFFon 02-24-2021 BASO # 0.1 103/ul Normal 0.0-0.1 [facility] Comment on above: Performed By: #### C BC #### [facility] [address] [place] [address] Dr. Vicki Dempsey Basophils/100 WBC (Bld) 1.0 % Normal 0.2-2.0 [facility] Comment on above: Performed By: #### C BC #### [facility] [address] [place] [address] Dr. Vicki Dempsey EO # 0.2 103/ul Normal 0.0-0.7 [facility] Comment on above: Performed By: #### C BC #### [facility] [address] [place] [address] Dr. Vicki Dempsey Eosinophils/100 WBC (Bld) 2.7 % Normal 0.9-7.0 [facility] Comment on above: Performed By: #### C BC #### [facility] [address] [place] [address] Dr. Vicki Dempsey Erythrocyte distribution width (RBC) [Ratio] 12.7 % Normal 11.0-15.0 [facility] Comment on above: Performed By: #### C BC #### [facility] [address] [place] [address] Dr. Vicki Dempsey Hematocrit (Bld) [Volume fraction] 51.0 % Critically high 36.0-48.0 [facility] Comment on above: Performed By: #### C BC #### [facility] [address] [place] [address] Dr. Vicki Dempsey Hemoglobin (Bld) [Mass/Vol] 16.6 g/dL Critically high 12.0-16.0 [facility] Comment on above: Performed By: #### C BC #### [facility] [address] [place] [address] Dr. Vicki Dempsey IG # 0.02 10e3/ul Normal 0.00-0.03 [facility] Comment on above: Performed By: #### C BC #### [facility] [address] [place] [address] Dr. Vicki Dempsey IG % 0.3 % Normal 0.0-0.5 [facility] Comment on above: Performed By: #### C BC #### [facility] [address] [place] [address] Dr. Vicki Dempsey LYMPH # 2.3 103/ul Normal 1.2-3.8 [facility] Comment on above: Performed By: #### C BC #### [facility] [address] [place] [address] Dr. Vicki Dempsey Lymphocytes/100 WBC (Bld) 31.1 % Normal 20.5-60.0 [facility] Comment on above: Performed By: #### C BC #### [facility] [address] [place] [address] Dr. Vicki Dempsey MANUAL DIFF REQ NO Normal [facility] Comment on above: Performed By: #### C BC #### [facility] [address] [place] [address] Dr. Vicki Dempsey MCH (RBC) [Entitic mass] 29.0 pg Normal 26.7-34.0 [facility] Comment on above: Performed By: #### C BC #### [facility] [address] [place] [address] Dr. Vicki Dempsey MCHC (RBC) [Mass/Vol] 32.5 g/dL Normal 29.9-35.2 [facility] Comment on above: Performed By: #### C BC #### [facility] [address] [place] [address] Dr. Vicki Dempsey MCV (RBC) [Entitic vol] 89.0 fL Normal 81.0-99.0 [facility] Comment on above: Performed By: #### C BC #### [facility] [address] [place] [address] Dr. Vicki Dempsey MONO # 0.6 103/ul Normal 0.3-0.8 [facility] Comment on above: Performed By: #### C BC #### [facility] [address] [place] [address] Dr. Vicki Dempsey Monocytes/100 WBC (Bld) 8.7 % Normal 1.7-12.0 [facility] Comment on above: Performed By: #### C BC #### [facility] [address] [address] [address] Vicki Dempsey NEUT # 4.1 103/ul Normal 1.4-6.5 [facility] Comment on above: Performed By: #### C BC #### [facility] [address] [address] [address] Vicki Dempsey Neutrophils/100 WBC (Bld) 56.2 % Normal 43.0-75.0 [facility] Comment on above: Performed By: #### C BC #### [facility] [address] [address] [address] Vicki Dempsey Platelet mean volume (Bld) [Entitic vol] 9.6 fL Normal 9.5-13.5 [facility] Comment on above: Performed By: #### C BC #### [facility] [address] [place] [address] Dr. Vicki Dempsey PLT 298 103/ul Normal 150-450 [facility] Comment on above: Performed By: #### C BC #### [facility] [address] [place] [address] Dr. Vicki Dempsey RBC 5.73 106/ul Critically high 4.20-5.40 [facility] Comment on above: Performed By: #### C BC #### [facility] [address] [place] [address] Dr. Vicki Dempsey WBC 7.3 103/ul Normal 4.0-11.0 [facility] Comment on above: Performed By: #### C BC #### [facility] [address] [place] [address] Dr. Vicki Dempsey GLYCOHEMOGLOBIN A1Con 2021 ADA RECOMMENDATION ADA THERAPEUTIC TARGET 6.0 - 7.0 ACTION SUGGESTED > 7.0 Normal [facility] Comment on above: Performed By: #### A 1C #### [facility] [address] [place] [address] Dr. Vicki Dempsey Glucose [Mass/Vol] 128 mg/dL Normal [facility] Comment on above: Performed By: #### A 1C #### [facility] [address] [place] [address] Dr. Vicki Dempsey HbA1c (Bld) [Mass fraction] 6.1 % Critically high <=6.0 [facility] Comment on above: Performed By: #### A 1C #### [facility] [address] [place] [address] Dr. Vicki Dempsey MICROALBUMIN, RAND URon 02-12 mALB 2.1 mg/L Normal <=30.0 [facility] Comment on above: Performed By: #### U LUC #### [facility] [address] [place] [address] Dr. Vicki Dempsey PROF 14(COMP METB)on 022 Albumin [Mass/Vol] 4.0 g/dL Normal 3.5-5.0 [facility] Comment on above: Performed By: #### C MP #### [facility] [address] [place] [address] Dr. Vicki Dempsey Albumin/Globulin [Mass ratio] 1.0 {ratio} Normal [facility] Comment on above: Performed By: #### C MP #### [facility] [address] [place] [address] Dr. Vicki Dempsey ALP [Catalytic activity/Vol] 104 U/L Normal 38-126 [facility] Comment on above: Performed By: #### C MP #### [facility] [address] [place] [address] Dr. Vicki Dempsey ALT [Catalytic activity/Vol] 30 U/L Normal 9-52 [facility] Comment on above: Performed By: #### C MP #### [facility] [address] [place] [address] Dr. Vicki Dempsey Anion gap [Moles/Vol] 11.2 mmol/L Normal [facility] Comment on above: Performed By: #### C MP #### [facility] [address] [place] [address] Dr. Vicki Dempsey AST [Catalytic activity/Vol] 19 U/L Normal 14-36 [facility] Comment on above: Performed By: #### C MP #### [facility] [address] [address] [address] Vicki Dempsey Bilirubin [Mass/Vol] 0.5 mg/dL Normal 0.2-1.3 [facility] Comment on above: Performed By: #### C MP #### [facility] [address] [address] [address] Vicki Dempsey Calcium [Mass/Vol] 9.6 mg/dL Normal 8.4-10.2 [facility] Comment on above: Performed By: #### C MP #### [facility] [address] [address] [address] Vicki Dempsey Chloride [Moles/Vol] 99 mmol/L Normal 98-107 [facility] Comment on above: Performed By: #### C MP #### [facility] [address] [address] [address] Vicki Dempsey CO2 [Moles/Vol] 32.1 mmol/L Critically high 22.0-30.0 [facility] Comment on above: Performed By: #### C MP #### [facility] [address] [address] [address] Vicki Dempsey Creatinine [Mass/Vol] 1.07 mg/dL Critically high 0.52-1.04 [facility] Comment on above: Performed By: #### C MP #### [facility] [address] [place] [address] Dr. Vicki Dempsey EGFR-AF BELARUSIAN >60 Normal >=60 [facility] Comment on above: Performed By: #### C MP #### [facility] [address] [address] [address] Vicki Dempsey EGFR-NON AF BELARUSIAN 50 mL/min/1.73m2 Critically low >=60 [facility] Comment on above: Performed By: #### C MP #### [facility] [address] [address] [address] Vicki Dempsey Globulin (S) [Mass/Vol] 3.9 g/dL Normal [facility] Comment on above: Performed By: #### C MP #### [facility] [address] [address] [address] Vicki Dempsey Glucose [Mass/Vol] 100 mg/dL Normal 74-106 [facility] Comment on above: Performed By: #### C MP #### [facility] [address] [address] [address] Vicki Dempsey Potassium [Moles/Vol] 3.3 mmol/L Critically low 3.4-5.0 [facility] Comment on above: Performed By: #### C MP #### [facility] [address] [address] [address] Vicki Dempsey Protein [Mass/Vol] 7.9 g/dL Normal 6.1-8.2 [facility] Comment on above: Performed By: #### C MP #### [facility] [address] [address] [address] Vicki Dempsey Sodium [Moles/Vol] 139 mmol/L Normal 137-145 [facility] Comment on above: Performed By: #### C MP #### [facility] [address] [address] [address] Vicki Dempsey Urea nitrogen [Mass/Vol] 13.0 mg/dL Normal 7.0-17.0 [facility] Comment on above: Performed By: #### C MP #### [facility] [address] [address] [address] Vicki Dempsey Urea nitrogen/Creatinine [Mass ratio] 12.1 mg/mg Normal [facility] Comment on above: Performed By: #### C MP #### [facility] [address] [address] [address] Vicki Dempsey PROF 14(COMP METB)on 021 Albumin [Mass/Vol] 3.8 g/dL Normal 3.5-5.0 [facility] Comment on above: Performed By: #### U LUC #### [facility] [address] [address] [address] Vicki Dempsey Albumin/Globulin [Mass ratio] 0.9 {ratio} Normal [facility] Comment on above: Performed By: #### U LUC #### [facility] [address] [place] [address] Dr. Vicki Dempsey ALP [Catalytic activity/Vol] 82 U/L Normal 38-126 [facility] Comment on above: Performed By: #### U LUC #### [facility] [address] [place] [address] Dr. Vicki Dempsey ALT [Catalytic activity/Vol] 21 U/L Normal 9-52 [facility] Comment on above: Performed By: #### U LUC #### [facility] [address] [place] [address] Dr. Vicki Dempsey Anion gap [Moles/Vol] 9.1 mmol/L Normal [facility] Comment on above: Performed By: #### U LUC #### [facility] [address] [place] [address] Dr. Vicki Dempsey AST [Catalytic activity/Vol] 16 U/L Normal 14-36 [facility] Comment on above: Performed By: #### U LUC #### [facility] [address] [place] [address] Dr. Vicki Dempsey Bilirubin [Mass/Vol] 0.7 mg/dL Normal 0.2-1.3 [facility] Comment on above: Performed By: #### U LUC #### [facility] [address] [place] [address] Dr. Vicki Dempsey Calcium [Mass/Vol] 9.6 mg/dL Normal 8.4-10.2 [facility] Comment on above: Performed By: #### U LUC #### [facility] [address] [place] [address] Dr. Vicki Dempsey Chloride [Moles/Vol] 99 mmol/L Normal 98-107 [facility] Comment on above: Performed By: #### U LUC #### [facility] [address] [place] [address] Dr. Vicki Dempsey CO2 [Moles/Vol] 33.5 mmol/L Critically high 22.0-30.0 [facility] Comment on above: Performed By: #### U LUC #### [facility] [address] [place] [address] Dr. Vicki Dempsey Creatinine [Mass/Vol] 1.04 mg/dL Normal 0.52-1.04 [facility] Comment on above: Performed By: #### U LUC #### [facility] [address] [address] [address] Vicki Dempsey EGFR-AF BELARUSIAN >60 Normal >=60 [facility] Comment on above: Performed By: #### U LUC #### [facility] [address] [address] [address] Vicki Dempsey EGFR-NON AF BELARUSIAN 52 mL/min/1.73m2 Critically low >=60 [facility] Comment on above: Performed By: #### U LUC #### [facility] [address] [address] [address] Vicki Dempsey Globulin (S) [Mass/Vol] 4.0 g/dL Normal [facility] Comment on above: Performed By: #### U LUC #### [facility] [address] [address] [address] Vicki Dempsey Glucose [Mass/Vol] 110 mg/dL Critically high 74-106 [facility] Comment on above: Performed By: #### U LUC #### [facility] [address] [address] [address] Vicki Dempsey Potassium [Moles/Vol] 3.6 mmol/L Normal 3.4-5.0 [facility] Comment on above: Performed By: #### U LUC #### [facility] [address] [address] [address] Vicki Dempsey Protein [Mass/Vol] 7.8 g/dL Normal 6.1-8.2 [facility] Comment on above: Performed By: #### U LUC #### [facility] [address] [address] [address] Vicki Dempsey Sodium [Moles/Vol] 138 mmol/L Normal 137-145 [facility] Comment on above: Performed By: #### U LUC #### [facility] [address] [address] [address] Vicki Dempsey Urea nitrogen [Mass/Vol] 21.0 mg/dL Critically high 7.0-17.0 [facility] Comment on above: Performed By: #### U LUC #### [facility] [address] [place] [address] Dr. Vicki Dempsey Urea nitrogen/Creatinine [Mass ratio] 20.2 mg/mg Normal [facility] Comment on above: Performed By: #### U LUC #### [facility] [address] [place] [address] Dr. Vicki Dempsey CBC AUTO DIFFon 06-07-2020 BASO # 0.1 103/ul Normal 0.0-0.1 [facility] Comment on above: Performed By: #### C BC #### [facility] [address] [place] [address] Joanne Jewels Basophils/100 WBC (Bld) 1.0 % Normal 0.2-2.0 [facility] Comment on above: Performed By: #### C BC #### [facility] [address] [place] [address] Joanne Jewels EO # 0.2 103/ul Normal 0.0-0.7 [facility] Comment on above: Performed By: #### C BC #### [facility] [address] [place] [address] Joanne Jewels Eosinophils/100 WBC (Bld) 3.2 % Normal 0.9-7.0 [facility] Comment on above: Performed By: #### C BC #### [facility] [address] [place] [address] Joanne Jewels Erythrocyte distribution width (RBC) [Ratio] 12.7 % Normal 11.0-15.0 [facility] Comment on above: Performed By: #### C BC #### [facility] [address] [place], [place] [id number] Joanne Jewels Hematocrit (Bld) [Volume fraction] 47.8 % Normal 36.0-48.0 [facility] Comment on above: Performed By: #### C BC #### [facility] [address] [place], [place] [phone] Joanne Jewels Hemoglobin (Bld) [Mass/Vol] 15.5 g/dL Normal 12.0-16.0 [facility] Comment on above: Performed By: #### C BC #### [facility] [address] [id number] Joanne Jewels IG # 0.02 10e3/ul Normal 0.00-0.03 [facility] Comment on above: Performed By: #### C BC #### [facility] [address] [address] Joanne Jewels IG % 0.3 % Normal 0.0-0.5 [facility] Comment on above: Performed By: #### C BC #### [facility] [address] [place] [address] Joanne Jewels LYMPH # 2.1 103/ul Normal 1.2-3.8 [facility] Comment on above: Performed By: #### C BC #### [facility] [address] [place] [address] Joanne Jewels Lymphocytes/100 WBC (Bld) 34.8 % Normal 20.5-60.0 [facility] Comment on above: Performed By: #### C BC #### [facility] [address] [place], [place] [phone] Joanne Jewels MANUAL DIFF REQ NO Normal [facility] Comment on above: Performed By: #### C BC #### [facility] [address] [place], [place] [phone] Joanne Jewels MCH (RBC) [Entitic mass] 28.5 pg Normal 26.7-34.0 [facility] Comment on above: Performed By: #### C BC #### [facility] [address] [place], [place] [phone] Joanne Jewels MCHC (RBC) [Mass/Vol] 32.4 g/dL Normal 29.9-35.2 [facility] Comment on above: Performed By: #### C BC #### [facility] [address] [place], [place] [phone] Joanne Jewels MCV (RBC) [Entitic vol] 87.9 fL Normal 81.0-99.0 [facility] Comment on above: Performed By: #### C BC #### [facility] [address] [place], [place] [phone] Joanne Jewels MONO # 0.7 103/ul Normal 0.3-0.8 [facility] Comment on above: Performed By: #### C BC #### [facility] [address] [place], [place] [phone] Joanne Jewels Monocytes/100 WBC (Bld) 11.1 % Normal 1.7-12.0 [facility] Comment on above: Performed By: #### C BC #### [facility] [address] [place] [address] Joanne Jewels NEUT # 3.0 103/ul Normal 1.4-6.5 [facility] Comment on above: Performed By: #### C BC #### [facility] [address] [place] [address] Joannejared Donis Neutrophils/100 WBC (Bld) 49.6 % Normal 43.0-75.0 [facility] Comment on above: Performed By: #### C BC #### [facility] [address] [place], [place] [phone] Joannejared Dalyen Platelet mean volume (Bld) [Entitic vol] 9.9 fL Normal 9.5-13.5 [facility] Comment on above: Performed By: #### C BC #### [facility] [address] [place], [place] [phone] Joanne Jewels PLT 248 103/ul Normal 150-450 [facility] Comment on above: Performed By: #### C BC #### [facility] [address] [place], [place] [phone] Joanne Jewels RBC 5.44 106/ul Critically high 4.20-5.40 [facility] Comment on above: Performed By: #### C BC #### [facility] [address] [place], [place] [phone] Joanne Jewels WBC 6.0 103/ul Normal 4.0-11.0 [facility] Comment on above: Performed By: #### C BC #### [facility] [address] [place], [place] [phone] Joanne Jewels ECHO LIMITED STUDYon 2 021 ECHO LIMITED STUDY Patient: JEWELS MARQUEZ Exam Date: 06/07/2020 : 1945 Gender:F Ordering : DR. BHAVNA RUANO . Admission #: [id number] Family : DR KALLI LOVETT D.O. Order #: [id number] CLICK HERE TO VIEW EXAM ECHOCARDIOGRAM REPORT [...] Area(A4C): 16.30 cm2 Left Atrium Systolic Volume(A2C): 17417 mm3 Left Atrium Systolic Volume(A4C): 75209 mm3 Mitral Valve Right Ventricle Aorta AO Root Diam: 3.00 cm Aortic Valve Tricuspid Valve Pulmonic Valve Right Atrium Dictated by: Lj Bradley M.D. on 06/07/2020 at 17:50 Approved by: Lj Bradley M.D. on 06/07/2020 at 17:52 Normal [facility] POINT OF CARE GLUCOSEon 05-14 Glucose [Mass/Vol] 101 mg/dL Normal 74-106 [facility] Comment on above: Performed By: #### U LUC #### [facility] [address] [address] [address] Vicki Dempsey PROF CHEM 8 (BAS METB)on Anion gap [Moles/Vol] 7.4 mmol/L Normal [facility] Comment on above: Performed By: #### B MP #### [facility] [address] [place] [address] Joanne Jewels Calcium [Mass/Vol] 9.3 mg/dL Normal 8.4-10.2 [facility] Comment on above: Performed By: #### B MP #### [facility] [address] [address] Joanne Jewels Chloride [Moles/Vol] 105 mmol/L Normal 98-107 [facility] Comment on above: Performed By: #### B MP #### [facility] [address] [address] Joanne Jewels CO2 [Moles/Vol] 31.7 mmol/L Critically high 22.0-30.0 [facility] Comment on above: Performed By: #### B MP #### [facility] [address] [address] Joanne Jewels Creatinine [Mass/Vol] 1.08 mg/dL Critically high 0.52-1.04 [facility] Comment on above: Performed By: #### B MP #### [facility] [address] [id number] Joanne Jewels EGFR-AF BELARUSIAN =60 Normal >=60 [facility] Comment on above: Performed By: #### B MP #### [facility] [address] [address] Joanne Jewels EGFR-NON AF BELARUSIAN 50 mL/min/1.73m2 Critically low >=60 [facility] Comment on above: Performed By: #### B MP #### [facility] [address] [place] [address] Joanne Jewels Glucose [Mass/Vol] 111 mg/dL Critically high 74-106 [facility] Comment on above: Performed By: #### B MP #### [facility] [address] [address] Joanne Jewels Potassium [Moles/Vol] 3.1 mmol/L Critically low 3.4-5.0 [facility] Comment on above: Performed By: #### B MP #### [facility] [address] [place] [address] Joanne Jewels Sodium [Moles/Vol] 141 mmol/L Normal 137-145 [facility] Comment on above: Performed By: #### B MP #### [facility] [address] [place] [address] Joanne Jewels Urea nitrogen [Mass/Vol] 20.0 mg/dL Critically high 7.0-17.0 [facility] Comment on above: Performed By: #### B MP #### [facility] [address] [place] [address] Joanne Ejwels Urea nitrogen/Creatinine [Mass ratio] 18.5 mg/mg Normal [facility] Comment on above: Performed By: #### B MP #### [facility] [address] [place] [address] Joanne Jewels CBC AUTO DIFFon 06-06-2020 BASO # 0.1 103/ul Normal 0.0-0.1 [facility] Comment on above: Performed By: #### U LUC #### [facility] [address] [place] [address] Dr. Vicki Dempsey Basophils/100 WBC (Bld) 0.9 % Normal 0.2-2.0 [facility] Comment on above: Performed By: #### U LUC #### [facility] [address] [place] [address] Dr. Vicki Dempsey EO # 0.1 103/ul Normal 0.0-0.7 [facility] Comment on above: Performed By: #### U LUC #### [facility] [address] [place] [address] Dr. Vicki Dempsey Eosinophils/100 WBC (Bld) 1.9 % Normal 0.9-7.0 [facility] Comment on above: Performed By: #### U LUC #### [facility] [address] [place] [address] Dr. Vicki Dempsey Erythrocyte distribution width (RBC) [Ratio] 12.6 % Normal 11.0-15.0 [facility] Comment on above: Performed By: #### U LUC #### [facility] [address] [place] [address] Dr. Vicki Dempsey Hematocrit (Bld) [Volume fraction] 51.7 % Critically high 36.0-48.0 [facility] Comment on above: Performed By: #### U LUC #### [facility] [address] [place] [address] Dr. Vicki Dempsey Hemoglobin (Bld) [Mass/Vol] 17.6 g/dL Critically high 12.0-16.0 [facility] Comment on above: Performed By: #### U LUC #### [facility] [address] [place] [address] Dr. Vicki Dempsey IG # 0.02 10e3/ul Normal 0.00-0.03 [facility] Comment on above: Performed By: #### U LUC #### [facility] [address] [place] [address] Dr. Vicki Dempsey IG % 0.3 % Normal 0.0-0.5 [facility] Comment on above: Performed By: #### U LUC #### [facility] [address] [place] [address] Dr. Vicki Dempsey LYMPH # 1.8 103/ul Normal 1.2-3.8 [facility] Comment on above: Performed By: #### U LUC #### [facility] [address] [place] [address] Dr. Vicki Dempsey Lymphocytes/100 WBC (Bld) 23.8 % Normal 20.5-60.0 [facility] Comment on above: Performed By: #### U LUC #### [facility] [address] [place] [address] Dr. Vicki Dempsey MANUAL DIFF REQ NO Normal [facility] Comment on above: Performed By: #### U LUC #### [facility] [address] [place] [address] Dr. Vicki Dempsey MCH (RBC) [Entitic mass] 29.1 pg Normal 26.7-34.0 [facility] Comment on above: Performed By: #### U LUC #### [facility] [address] [place] [address] Dr. Vicki Dempsey MCHC (RBC) [Mass/Vol] 34.0 g/dL Normal 29.9-35.2 [facility] Comment on above: Performed By: #### U LUC #### [facility] [address] [place] [address] Dr. Vicki Dempsey MCV (RBC) [Entitic vol] 85.5 fL Normal 81.0-99.0 [facility] Comment on above: Performed By: #### U LUC #### [facility] [address] [place] [address] Dr. Vicki Dempsey MONO # 0.7 103/ul Normal 0.3-0.8 [facility] Comment on above: Performed By: #### U LUC #### [facility] [address] [place] [address] Dr. Vicki Dempsey Monocytes/100 WBC (Bld) 9.4 % Normal 1.7-12.0 [facility] Comment on above: Performed By: #### U LUC #### [facility] [address] [place] [address] Dr. Vicki Dempsey NEUT # 4.8 103/ul Normal 1.4-6.5 [facility] Comment on above: Performed By: #### U LUC #### [facility] [address] [place] [address] Dr. Vicki Dempsey Neutrophils/100 WBC (Bld) 63.7 % Normal 43.0-75.0 [facility] Comment on above: Performed By: #### U LUC #### [facility] [address] [address] [address] Vicki Dempsey Platelet mean volume (Bld) [Entitic vol] 10.1 fL Normal 9.5-13.5 [facility] Comment on above: Performed By: #### U LUC #### [facility] [address] [address] [address] Vicki Dempsey PLT 309 103/ul Normal 150-450 [facility] Comment on above: Performed By: #### U LUC #### [facility] [address] [address] [address] Vicki Dempsey RBC 6.05 106/ul Critically high 4.20-5.40 [facility] Comment on above: Performed By: #### U LUC #### [facility] [address] [address] [address] Vicki Dempsye WBC 7.5 103/ul Normal 4.0-11.0 [facility] Comment on above: Performed By: #### U LUC #### [facility] [address] [address] [address] Vicki Dempsey POINT OF CARE GLUCOSEon 05-14 Glucose [Mass/Vol] 114 mg/dL Critically high 74-106 [facility] Comment on above: Performed By: #### U LUC #### [facility] [address] [address] [address] Vicki Dempsey PROF 14(COMP METB)on 021 Albumin [Mass/Vol] 4.0 g/dL Normal 3.5-5.0 [facility] Comment on above: Performed By: #### H STROPN, CMP #### [facility] [address] [address] Joanne Jewels Albumin/Globulin [Mass ratio] 0.9 {ratio} Normal [facility] Comment on above: Performed By: #### H STROPN, CMP #### [facility] [address] [address] Joanne Jewels ALP [Catalytic activity/Vol] 91 U/L Normal 38-126 [facility] Comment on above: Performed By: #### H STROPN, CMP #### [facility] [address] [place], [place] [address] Joanne Jewels ALT [Catalytic activity/Vol] 29 U/L Normal 9-52 [facility] Comment on above: Performed By: #### H STROPN, CMP #### [facility] [address] [place], [place] [address] Joanne Jewels Anion gap [Moles/Vol] 10.9 mmol/L Normal [facility] Comment on above: Performed By: #### H STROPN, CMP #### [facility] [address] [id number] Joanne Jewels AST [Catalytic activity/Vol] 22 U/L Normal 14-36 [facility] Comment on above: Performed By: #### H STROJAYESH, CMP #### [facility] [address] [address] Joanne Jewels Bilirubin [Mass/Vol] 0.8 mg/dL Normal 0.2-1.3 [facility] Comment on above: Performed By: #### H STROJAYESH, CMP #### [facility] [address] [id number] Joanne Jewels Calcium [Mass/Vol] 9.6 mg/dL Normal 8.4-10.2 [facility] Comment on above: Performed By: #### H STROPN, CMP #### [facility] [address] [address] Joanne Jewels Chloride [Moles/Vol] 98 mmol/L Normal 98-107 [facility] Comment on above: Performed By: #### H STROPN, CMP #### [facility] [address] [place], [place] [address] Joanne Jewels CO2 [Moles/Vol] 30.8 mmol/L Critically high 22.0-30.0 [facility] Comment on above: Performed By: #### H STROPN, CMP #### [facility] [address] [id number] Joanne Jewels Creatinine [Mass/Vol] 1.20 mg/dL Critically high 0.52-1.04 [facility] Comment on above: Performed By: #### H FELECIA, CMP #### [facility] [address] [place], [place] [id number] Joanne Jewels EGFR-AF BELARUSIAN 53 mL/min/1.73m2 Critically low >=60 [facility] Comment on above: Performed By: #### H FELECIA, CMP #### [facility] [address] [address] Joanne Jewels EGFR-NON AF BELARUSIAN 44 mL/min/1.73m2 Critically low >=60 [facility] Comment on above: Performed By: #### H FELECIA, CMP #### [facility] [address] [place] [address] Joanne Jewels Globulin (S) [Mass/Vol] 4.4 g/dL Normal [facility] Comment on above: Performed By: #### H FELECIA, CMP #### [facility] [address] [place] [address] Joanne Jewels Glucose [Mass/Vol] 124 mg/dL Critically high 74-106 [facility] Comment on above: Performed By: #### H FELECIA, CMP #### [facility] [address] [place] [address] Joanne Jewels Potassium [Moles/Vol] 2.7 mmol/L Critically low 3.4-5.0 [facility] Comment on above: Result Comment: Test repeated. Critical value verified. Performed By: #### H FELECIA, CMP #### [facility] [address] [place] [address] Joanne Jewels Protein [Mass/Vol] 8.4 g/dL Critically high 6.1-8.2 [facility] Comment on above: Performed By: #### H FELECIA, CMP #### [facility] [address] [place] [address] Joanne Jewels Sodium [Moles/Vol] 137 mmol/L Normal 137-145 [facility] Comment on above: Performed By: #### H FELECIA, CMP #### [facility] [address] [place], [place] [id number] Joanne Jewels Urea nitrogen [Mass/Vol] 18.0 mg/dL Critically high 7.0-17.0 [facility] Comment on above: Performed By: #### H FELECIA, CMP #### [facility] [address] [address] Joanne Donis Urea nitrogen/Creatinine [Mass ratio] 15.0 mg/mg Normal [facility] Comment on above: Performed By: #### H FELECIA, CMP #### [facility] [address] [address] Joanne Donis Rapid Covid-19 PCR (CVDRPD)o n 06-06-2020 SARS-CoV-2 (COVID-19) RNA TANMAY+probe Ql (Unsp spec) Not detected Normal NOT DETECTED [facility] Comment on above: Result Comment: This test is not yet approved or cleared by the [place] Food and Drug Administration (FDA). This test was developed by [employer], [place], [place]. The performance characteristics of this test were validated by [facility]. The results are not intended to be used as the sole means for clinical diagnosis or patient management decisions. [facility] is authorized under Clinical Laboratory Improvement Amendments (CLIA) to perform high- complexity testing. When diagnostic testing is negative, the possibility of a false negative should be considered in the context of a patient's recent exposures and the presence of clinical signs and symptoms consistent with SARS-CoV-2. Performed By: #### C VDRPD #### [facility] [address] [place] [address] Joanne Donis TROPONIN, HIGH SENSITIVITYon 06-06-2020 HSTROP 64.1 pg/mL Critically high 4.0-35.5 [facility] Comment on above: Result Comment: CUT- OFF POINTS HAVE BEEN ESTABLISHED BASED ON THE FOURTH UNIVERSAL DEFINITIONS OF MYOCARDIAL INFARCTION. THE UPPER REFERENCE LIMIT (URL) OF TROPONIN, DEFINED THE 99TH PERCENTILE OF cTnI DISTRIBUTION IN A REFERENCE POPULATION, HAS BEEN CONFIRMED THE DECISION THRESHOLD FOR SD DIAGNOSIS. Test repeated. Critical value verified. Performed By: #### H SHARMAINEPN #### [facility] [address] [place] [address] Joanne Donis HSTROP 66.3 pg/mL Critically high 4.0-35.5 [facility] Comment on above: Result Comment: CUT- OFF POINTS HAVE BEEN ESTABLISHED BASED ON THE FOURTH UNIVERSAL DEFINITIONS OF MYOCARDIAL INFARCTION. THE UPPER REFERENCE LIMIT (URL) OF TROPONIN, DEFINED THE 99TH PERCENTILE OF cTnI DISTRIBUTION IN A REFERENCE POPULATION, HAS BEEN CONFIRMED THE DECISION THRESHOLD FOR SD DIAGNOSIS. Test repeated. Critical value verified. Performed By: #### H STROPN, CMP #### [facility] [address] [place], [place] [address] Joanne Donis XR CHEST 1 Von 06-06-2020 [...] by: CAITLIN GUERRERO Date: 2020-06-06 14:01 Normal [facility] Encounters Encounter Date Encounter Type Care Provider Facility Start: 02-21-2023 End: 02-21-2023 ambulatory LALI SARAVIA Not Available Start: 02-06-2023 Telephone encounter Lali Arrington CMA [facility] Start: 01-22-2023 End: [...] malignant neoplasm of colon Colonoscopy [facility] Start: 03-10-2023 Adult BMI Screening Adult BMI Screening [facility] Start: 02-15-2023 Tobacco Screening Tobacco Screening [facility] Start: 02-07-2023 End: 02-07-2023 Clinical Support [facility] Start: 05-04-2011 Fall Risk Screening Fall Risk Screening [facility] Start: 1965 Administration of varicella zoster vaccine Zoster (Shingles) Vaccine (1 of 2) [facility] Start: 1965 DTaP,Tdap and Td Vaccines (1 - Tdap) DTaP,Tdap and Td Vaccines (1 - Tdap) [facility] Start: 1964 Adult BMI Follow Up Plan Adult BMI Follow Up Plan [facility] Start: 1958 Depression Screening Depression Screening [facility] Start: 1945 Medicare Annual Wellness Visit Medicare Annual Wellness Visit [facility] Immunizations Immunization Date Immunization Notes Care Provider Fa cility 10-29-2018 influenza, high dose seasonal, preservative-free Lali Nury [facility] 10-29-2018 pneumococcal polysaccharide vaccine, 23 valent Lali Nury [facility] 12-18-2017 influenza, injectabl e, quadrivalent, preservative free Lali Nury [facility] 11-17-2016 Seasonal trivalent influenza vaccine, adjuvanted, preservative free Lali Nury [facility] 10-31-2016 influenza, injectabl e, quadrivalent, preservative free Lali Nury [facility] 09-25-2016 pneumococcal polysaccharide vaccine, 23 valent Lali Nury [facility] 12-11-2015 influenza, high dose seasonal, preservative-free Lali Nury [facility] 11-06-2012 influenza virus vacc ine, whole virus Lali Nury [facility] 11-14-2011 influenza virus vacc ine, whole virus Lali Nury [facility] 11-09-2010 influenza virus vacc ine, whole virus Lali Nury [facility] 11-24-2009 influenza virus vacc ine, whole virus Lali Nury [facility] 11-18-2008 influenza virus vacc ine, whole virus Lali Nury [facility] Payers Date Payer Category Payer Private Health Insurance [facility] AARP SUPPLEMENT [id number] 2012-Present [phone] [address] [place] [address] [id number] 2011 Medicare MEDICARE MEDICAR E RAILROAD [id number] 2011-Present [phone] [address] [address] [place] [address] [id number] 1959 Medicare [id number] 1959 Unknown [id number] 1945 Unknown [id number] 1945 Unknown [id number] 1946 Unknown [id number] 1946 Unknown [id number] 1946 Unknown [id number] 1945 Unknown [id number] 1945 Unknown [id number] Social History Date Type Detail Facility Start: 10-03-2021 [facility] End: 02-12-1995 History of tobacco use Current smoker [facility] End: 02-12-1995 History of tobacco use Cigarette Smoker [facility] Start: 02-24-2020 End: 10-03-2021 Cigarettes smoked current (pack per day) - Reported 0.[address] [facility] Start: 10-03-2021 Tobacco use and exposure Smokeless tobacco non-user [facility] Start: 03-10-2022 Alcohol intake Current non-dr behavior clinician of alcohol (finding) [facility] Start: 02-24-2020 End: 02-15-2022 Tobacco use panel [facility] Housing Instability Unknown [facility] Start: 1945 Sex Assigned At Female P [facility] Start: 07-12-2020 Gender identity Identifies as female gender (finding) [facility] Start: 07-12-2020 Sexual orientation Heterosexual (fin estela) [facility] Medical Equipment Procedure Code Equipment Code Equipment Origin al Text Equipment Identifier Dates Lead Capsure Fix [employer] [id number] - [id number] - [id number] Start: 06-27-2019 Cardiac pacemaker, device (physical object) ([id number]) Pcmkr Meredith [employer] Crd - [id number] - [id number] Start: 06-27-2019 Note 02-06-2023 Telephone Encounter [...] understanding. documented in this encounter [facility] Telephone encounter Note 02-06-2023 Telephone Encounter - Lali Arrington CMA - 02/06/2023 9:38 AM EST Note Date & Type Note Facility 02-06-2023 Telephone encount er Note Called patient to remind them to bring their most current copy of their medication list with them to their appt. Patient verbalizes understanding. [facility] Clinical Note 04-27-2021 Note Date & Type Note Facility 04-27-2021 Note PROCEDURE: XR FOOT L T MIN 3 VIEWS COMPARISON: None. HISTORY: Pain FINDINGS: BONES:No acute fracture or dislocation. Mild to moderate enthesopathic spurring plantar calcaneus SOFT TISSUES:Negative. No visible soft tissue swelling. EFFUSION:None visible. OTHER: Negative. IMPRESSION: No acute abnormality Electronically authenticated by: CAITLIN HENDRICKSON Date: 2021-04-27 13:13 [facility] Instructions Note Date & Type Note Facility Instructions Not on filedocumented in this en counter [facility] Summary Purpose Family History No Family History Records FoundNo Family History Records Found Advance Directives No Advanced Directives Records FoundLatest Code Status on File Code Status Date Activated Date Inactivated Comments Full Code 06/25/2019 4:11 PM 06/28/2019 6:33 PM Additional Source Comments INFORMATION SOURCE (unrecogn ized section and content) DATE CREATED AUTHOR 04/29/2021 [facility] DATE CREATED AUTHOR AUTHOR'S ORGANIZ ATION 02/22/2023 [facility] EP[employer] Care Teams (unrecognized sec tion and content) Environment Artist Relationship Specialty Start Date End Date Lali Saravia, COAT FINISHER-WIC SITE COORDINATOR [address] [place] [address] PCP - General Nurse Practitioner 01/29/23 FOR [...] BE BASED ON THE PRIMARY CLINICAL RECORDS. [employer] provides no warranty or guarantee of the accuracy or completeness of information in this document.
--- NOTE | 2023-02-23 08:56 | XR_ITS ---
[facility] [address] [place] [id number] Patient Name: PREET MARQUEZ MRN: [id number] date: 1945 Sex: F Assigned Patient Location: ER Current Patient Location: ER Accession/Order Number: [id number] Exam Date: 02/23/2023 09:28 Report Date: 02/23/2023 09:47 At the request of: LOUISA CROOKS Procedure: XR chest 1V EXAM: XR chest 1V HISTORY: weak COMPARISON: Chest study dated 06/06/2020 TECHNIQUE: AP view of the chest was obtained with portable technique at 0922 hours. FINDINGS: Heart and mediastinal contours are unremarkable in appearance. Mild COPD. No acute infiltrate or consolidations are seen. Pacemaker seen on the left similar to prior study. No obvious pneumothorax. Mild degenerative changes in the dorsal spine with mild convexity to the right. XR/XR chest 1V IMPRESSION: Mild COPD. No acute process seen in the chest. Electronically authenticated by: ANIKA KAHN Date: 02/23/2023 09:47
--- NOTE | 2023-02-23 08:57 | ECG_ITS ---
[facility] Test Date: 2023-02-23 Pat Name: PREET MARQUEZ Department: Room: - Gender: Female Editor House Organ: : 1945 Requested By: [id number] Order Number: [id number] Reading MD: JUANITA DIEGO Measurements Intervals [place] Rate: 61 P: 47 ID: [id number] QRS: -78 QRSD: 148 T: 71 QT: 478 QTc: 481 Interpretive Statements [id number] Electronic ventricular pacemaker 9120 atypical ECG Compared to ECG 06/06/2020 13:27:58 Sinus rhythm no longer present Left bundle-branch block no longer present Electronically Signed On 02-24-2023 12:07:32 EST by JUANITA DIEGO
[2023-02-23] MEDS: 0.9 % SODIUM CHLORIDE 1,000 ML 999 ML IV (09:10)
[2023-02-23 09:18] LABS: Hematocrit 47.8 % (36.0-48.0); Mean Corpuscular HGB Conc 33.5 g/dL (29.9-35.2); Mean Corpuscular Hemoglobin 29.7 pg (26.7-34.0); Mean Corpuscular Volume 88.8 fL (81.0-99.0); Mean Platelet Volume 10.4 fL (9.5-13.5); Platelet Count 250 10^3/uL (150-450); Red Blood Count 5.38 10^6/uL (4.20-5.40); Red Cell Distribution Width 12.3 % (11.0-15.0); White Blood Count 5.3 10^3/uL (4.0-11.0)
[2023-02-23 09:27] LABS: Bilirubin Urine NEGATIVE (NEGATIVE); Blood Urine NEGATIVE (NEGATIVE); Clarity Urine CLEAR (CLEAR); Color Urine YELLOW (YELLOW); Glucose Urine UA NEGATIVE (NEGATIVE); Ketones Urine 15 mg/dL (NEGATIVE); Leukocyte Esterase Urine NEGATIVE (NEGATIVE); Nitrite Urine NEGATIVE (NEGATIVE); Protein Urine NEGATIVE (NEG/TRACE); Specific Gravity Urine 1.025 (1.005-1.025); Urobilinogen Urine 0.2 EU/dL (0.2-1.0); pH Urine 5.5 (5.0-9.0)
[2023-02-23 09:33] LABS: Lactate/Lactic Acid 1.7 mmol/L (0.4-2.0)
[2023-02-23 09:34] LABS: Urine Microscopic Indicated NO
[2023-02-23 09:37] LABS: Band Neutrophils Absolute 0.1 10^3/uL (0.0-0.3); Segmented Neut Absolute Manual 4.29 10^3/uL (1.4-6.5)
[2023-02-23 09:38] LABS: Alanine Aminotransferase 27 U/L (14-59); Albumin Globulin Ratio 0.8; Albumin Level 3.4 g/dL (3.4-5.0); Alkaline Phosphatase 84 U/L (46-116); Anion Gap 15.7; Aspartate Amino Transferase 23 U/L (15-37); BUN Creatinine Ratio 12.1; Bilirubin Total 0.9 mg/dL (0.2-1.0); Calcium 9.4 mg/dL (8.5-10.1); Carbon Dioxide 25.7 mmol/L (21.0-32.0); Chloride 99 mmol/L (98-107); Estimated GFR (African America 55 (>=60); Estimated GFR (Non-African Ame 45 (>=60); Globulin 4.1 g/dL; Glucose 121 mg/dL (74-106); Lymphocytes Absolute Manual 0.47 10^3/uL (1.20-3.80); Monocytes Absolute Manual 0.47 10^3/uL (0.30-0.80); Potassium 3.4 mmol/L (3.5-5.1); Sodium 137 mmol/L (136-145); Total Protein 7.5 g/dL (6.4-8.2); Troponin I High Sensitivity 44.2 pg/mL (4.0-51.3)
--- NOTE | 2023-02-23 10:23 | ED_ITS ---
HPI - General Adult General Chief complaint: Nausea/Vomiting/Diarrhea Stated complaint: NAUSEA Time Seen by Provider: 02/23/23 08:55 Source: patient Mode of arrival: Wheelchair Limitations: no limitations History of Present Illness HPI narrative: patient here with family member complaining of just feeling fatigued and tired. She said if she were to guess it would be low potassium because she's experienced before. She has not had a classic influenza type symptoms with sore throat fever or headache aches pains chills myalgias lassitude are all completely denied. She has no urinary symptoms such as frequency urgency or dysuria. She did go to an urgent care this evening primary care doctor recently they told her they wanted to cover her for any bacterial infection so they put her on an antibiotic. They did not do a chest x-ray blood work or urinalysis. In either case she's not had fever shakes or chills. She is taking the antibiotic. She's not had shortness of breath or sputum production no sinus pressure no toothache review of systems completely negative except she says she feels runndown and tired Related Data Home Medications Medication Instructions Recorded Confirmed allopurinol 100 mg tablet 100 mg PO DAILY 02/23/23 02/23/23 amoxicillin 875 mg-potassium 1 tab PO Q12H 02/23/23 02/23/23 clavulanate 125 mg tablet atenolol 100 mg tablet 100 mg PO Q24H 02/23/23 02/23/23 buspirone 10 mg tablet 10 mg PO BID 02/23/23 02/23/23 fluticasone fur. 100 mcg-umeclid 1 inh inhalation DAILY 02/23/23 02/23/23 62.5 mcg-vilant 25 mcg inhalat.powder (Trelegy Ellipta) hydrochlorothiazide 25 mg tablet 25 mg PO DAILY 02/23/23 02/23/23 lisinopril 5 mg tablet 10 mg PO DAILY 02/23/23 02/23/23 metformin 500 mg tablet 500 mg PO DAILY 02/23/23 02/23/23 omeprazole 20 mg capsule,delayed 20 mg PO DAILY 02/23/23 02/23/23 release potassium chloride 20 mEq 20 meq PO DAILY 02/23/23 02/23/23 tablet,extended release simvastatin 20 mg tablet 20 mg PO DAILY 02/23/23 02/23/23 Allergies Allergy/AdvReac Type Severity Reaction Status Date / Time acetaminophen [From Percocet] Allergy Unknown Verified 02/23/23 08:46 hydrocodone [From Vicodin] Allergy Unknown Verified 02/23/23 08:46 oxycodone [From Percocet] Allergy Unknown Verified 02/23/23 08:46 Sulfa (Sulfonamide Allergy Unknown Verified 02/23/23 08:46 Antibiotics) Exam Narrative Exam Narrative: awake alert pleasant vital signs are normal. Pulse oximetry is ninety-nine percent when I see her. She has no respiratory distress no cough congestion or wheezing. Skin integument so good hydration status with no petechiae purpura rash or exanthem. HEENT shows no runny nose no pharyngitis she has no earache. She has no sore throat or swollen glands that she complains of. Respiratory her lungs are completely clear no wheezes rales or rhonchi. Heart sounds are normal with no murmur. She has no abdominal complaints. Her extremities are warm and dry there is no pallor cyanosis or coolness. Constitutional Vital Signs, click to edit/add: Last Vital Signs Temp 97.7 F 02/23/23 08:46 Pulse 80 02/23/23 08:46 Resp 18 02/23/23 08:46 BP 148/75 H 02/23/23 09:12 Pulse Ox 95 02/23/23 09:12 O2 Del Method Room Air 02/23/23 08:46 Course Vital Signs Vital signs: Vital Signs Temperature 97.7 F 02/23/23 08:46 Pulse Rate 80 02/23/23 08:46 Respiratory Rate 18 02/23/23 08:46 Blood Pressure 192/86 H 02/23/23 08:46 Pulse Oximetry 95 02/23/23 08:46 Oxygen Delivery Method Room Air 02/23/23 08:46 Temperature 97.7 F 02/23/23 08:46 Pulse Rate 80 02/23/23 08:46 Respiratory Rate 18 02/23/23 08:46 Blood Pressure 148/75 H 02/23/23 09:12 Pulse Oximetry 95 02/23/23 09:12 Oxygen Delivery Method Room Air 02/23/23 08:46 Medical Decision Making MDM Narrative Medical decision making narrative: this patient's potassium is slightly low at 3.4. The rest her screening tests chest x-ray cardiac enzymes are all normal. Do want her to check for Covid at home just as a precaution, she has no symptoms of cold. Lab Data Labs: Lab Results 02/23/23 02/23/23 Range/Units 09:05 09:12 WBC 5.3 (4.0-11.0) 10^3/uL RBC 5.38 (4.20-5.40) 10^6/uL Hgb 16.0 (12.0-16.0) g/dL Hct 47.8 (36.0-48.0) % MCV 88.8 (81.0-99.0) fL MCH 29.7 (26.7-34.0) pg MCHC 33.5 (29.9-35.2) g/dL RDW 12.3 (11.0-15.0) % Plt Count 250 (150-450) 10^3/uL MPV 10.4 (9.5-13.5) fL Seg Neuts % (Manual) 81.0 Band Neutrophils % 1.0 (0-5) % Lymphocytes % (Manual) 9.0 L (20.5-60.0) % Monocytes % (Manual) 9.0 (1.7-12.0) % Eosinophils % (Manual) 0.0 L (0.9-7.0) % Basophils % (Manual) 0.0 L (0.2-2.0) % Neutrophils # (Manual) 4.29 (1.4-6.5) 10^3/uL Band Neutrophils # 0.1 (0.0-0.3) 10^3/uL Lymphocytes # (Manual) 0.47 L (1.20-3.80) 10^3/uL Monocytes # (Manual) 0.47 (0.30-0.80) 10^3/uL Eosinophils # (Manual) 0.00 (0.00-0.70) 10^3/uL Basophils # (Manual) 0.00 (0.00-0.10) 10^3/uL Sodium 137 (136-145) mmol/L Potassium 3.4 L (3.5-5.1) mmol/L Chloride 99 (98-107) mmol/L Carbon Dioxide 25.7 (21.0-32.0) mmol/L Anion Gap 15.7 BUN 14.0 (7.0-18.0) mg/dL Creatinine 1.16 H (0.55-1.02) mg/dL Est GFR ( Amer) 55 L (>=60) Est GFR (Non-Af Amer) 45 L (>=60) BUN/Creatinine Ratio 12.1 Glucose 121 H (74-106) mg/dL Lactate 1.7 (0.4-2.0) mmol/L Calcium 9.4 (8.5-10.1) mg/dL Total Bilirubin 0.9 (0.2-1.0) mg/dL AST 23 (15-37) U/L ALT 27 (14-59) U/L Alkaline Phosphatase 84 (46-116) U/L Troponin I High Sens 44.2 (4.0-51.3) pg/mL NT-Pro-B Natriuret Pep 370.0 (<=1800.0) pg/mL Total Protein 7.5 (6.4-8.2) g/dL Albumin 3.4 (3.4-5.0) g/dL Globulin 4.1 g/dL Albumin/Globulin Ratio 0.8 Urine Color Yellow (YELLOW) Urine Clarity Clear (CLEAR) Urine pH 5.5 (5.0-9.0) Ur Specific [place] 1.025 (1.005-1.025) Urine Protein Negative (NEG/TRACE) mg/dL Urine Glucose (UA) Negative (NEGATIVE) mg/dL Urine Ketones 15 A (NEGATIVE) mg/dL Urine Occult Blood Negative (NEGATIVE) Urine Nitrite Negative (NEGATIVE) Urine Bilirubin Negative (NEGATIVE) Urine Urobilinogen 0.2 (0.2-1.0) EU/dL Ur Leukocyte Esterase Negative (NEGATIVE) Discharge Plan Discharge Chief Complaint: Nausea/Vomiting/Diarrhea Clinical Impression: Acute hypokalemia Patient Disposition: Home, Self-Care Time of Disposition Decision: 10:26 Prescriptions / Home Meds: No Action potassium chloride 20 mEq tablet extended release 20 meq PO DAILY omeprazole 20 mg capsule,delayed release(DR/EC) 20 mg PO DAILY metformin 500 mg tablet 500 mg PO DAILY atenolol 100 mg tablet 100 mg PO Q24H lisinopril 5 mg tablet 10 mg PO DAILY simvastatin 20 mg tablet 20 mg PO DAILY buspirone 10 mg tablet 10 mg PO BID allopurinol 100 mg tablet 100 mg PO DAILY hydrochlorothiazide 25 mg tablet 25 mg PO DAILY Trelegy Ellipta 100-62.5-25 mcg blister with device 1 inh inhalation DAILY amoxicillin-pot clavulanate 875-125 mg tablet 1 tab PO Q12H Rx Instructions: STARTED 02/22/23 Additional Instructions: increase her potassium intake from 20 mEq each day, to 30 mEq each day for four days. Then go back to normal dose Stand Alone Forms: Portal Instructions Referrals: Lali Saravia NP [Primary Care Provider] - 1 week
== END 2023-02-23 10:49 | disposition home or self-care (01) ==
PROVIDERS: Emergency Provider Emergency Medicine Emergency Medical Services; PCP Nurse Practitioner
DX: E87.6 Hypokalemia (principal); Z79.84 Long term (current) use of oral hypoglycemic drugs; Z79.899 Other long term (current) drug therapy
CPT/HCPCS: 36415; 71045; 80053; 81003; 83605; 83880; 84484; 85007; 85027; 93005; 99285

== ENCOUNTER 2023-04-24 06:33 | Outpatient (OUT) | payer MEDICARE, SELFPAY ==
--- OUTSIDE RECORDS SUMMARY | 2023-04-24 06:37 | XMS_ITS | CCD ---
Author Name Unknown Address [id number] [place] [address] Organization [facility] Care Team Providers Care Disbursing Agent Name Role Phone PUMA, DR CHAVEZ Admitting Unavailable WANDA, DR CROCKETT Primary Care Unavailable PUMA, DR CHAVEZ Attending Unavailable PUMA, DR CHAVEZ Consulting Unavailable FLORA, DO Admitting Unavailable EEMKA, DR CAITLIN Parra Consulting Unavailable WANDA, DR [...] Care Unavailable HOUSE, DR CROCKETT Admitting Unavailable Ildahjann PET CARE ATTENDANT-KEY CUTTER, Lali J Primary Care Provider Rani ENGINEERING TECHNICIAN, Lali Unavailable Arsh Dunham MD Primary Care Provider LALI SARAVIA Attending Unavailable RANI, LALI Attending Unavailable RANI, LALI Attending Unavailable Allergies Allergy Classification Reported Allergen(s) Allergy Type Date of Onset Reaction(s) Facility (1 source) Acetaminophen / HYDROcodone Drug Allergy 07-11-19 13 [facility] (1 source) Acetaminophen / oxyCODONE Drug Allergy 07-11-19 13 [facility] (1 source) Sulfonamides (Antibiotic) Drug allergy (disorder) 07-11-19 13 [facility] (1 source) Acetaminophen / HYDROcodone Drug Allergy 07-09-19 20 Hallucinations [facility] (1 source) Acetaminophen / oxyCODONE Drug Allergy 06-25-19 Hallucinations, Vomiting [facility] (2 sources) Sulfonamides (Antibiotic) Propensity to adverse reactions to drug 10-11-19 Hives, Vomiting [facility] (1 source) HYDROcodone Drug Allergy 01-18-20 Hallucinations [facility] (1 source) oxyCODONE Drug Allergy 01-18-20 Hallucinations [facility] (1 source) traMADol Drug Allergy 01-18-20 Hallucinations [facility] Medications Current Medications Medication Drug Class(es) Dates Sig (Normalized) Sig (Original) [id number] 200 actuat albuterol 0.09 mg/actuat metered dose inhaler (2 sources) beta2-Adrenergic Agonist Start: 02-15-2022 take 2 puff(s) by inhalation every six hours albuterol HFA 90 mcg/act inhaler Inhale 2 puffs every 6 (six) hours if needed 0 02/15/2022 Active Start: 04-30-2020 take 2 puff(s) by in halation in the morning albuterol (PROVENTIL HFA;VENTOLIN HFA) 90 mcg/actuation inhaler Inhale 2 puffs in the morning. 0 04/30/2020 Active allopurinol 100 mg oral tablet (2 sources) Xanthine Oxidase Inhibitor Start: 10-29-2022 take 1 tablet by mouth in the morning allopurinol (Zyloprim) 100 MG tablet Take 100 mg by mouth in the morning. 0 10/29/2022 Active atenolol 100 mg oral tablet (3 sources) beta-Adrenergic Danielle Start: 03-22-2023 End: 06-20-2023 take 1 tablet by mouth in the morning atenolol (Tenormin) 100 MG tablet Indications: Primary hypertension (CMS/HCC) Take 1 tablet (100 mg) by mouth in the morning. 90 tablet 1 03/22/2023 06/20/2023 Active busPIRone hydrochloride 10 mg oral tablet (2 sources) Start: 02-14-2023 take 1 tablet by mouth once busPIRone (Buspar) 10 MG tablet Indications: NITO (generalized anxiety disorder) (CMS/HCC) Take 1 tablet (10 mg) by mouth every 12 (twelve) hours if needed (anxiety) 60 tablet 1 02/14/2023 Active Start: 07-10-2019 take 1 tablet by jos th in the morning, then take 1 tablet by mouth at bedtime busPIRone (BUSPAR) 10 mg tablet Take 1 tablet (10 mg total) by mouth in the morning and 1 tablet (10 mg total) before bedtime. 0 07/10/2019 Active Pwfrnvqgbcl-Qvaevvyzh-Sdstgo (Trelegy Ellipta) 200-62.5-25 MCG/ACT aerosol powder (1 source) Start: 01-24-2023 take 1 puff(s) by mouth in the morning Hngzrnghung-Iqocxvqmg-Defurw (Trelegy Ellipta) 200-62.5-25 MCG/ACT aerosol powder Indications: COPD with asthma Inhale 1 puff in the morning. Rinse mouth after use. 3 each 3 01/24/2023 Active hydroCHLOROthiazide 25 mg oral tablet (2 sources) Thiazide Diuretic take 0.5 tablet by mouth in the morning hydroCHLOROthiazide (HYDRODiuril) 25 MG tablet Take 0.5 tablets by mouth in the morning. 0 Active take 1 tablet by mouth once angelica y hydroCHLOROthiazide (HYDRODIURIL) 25 mg tablet Take 1 tablet (25 mg total) by mouth daily. 0 Active lisinopril 10 mg oral tablet (1 source) Angiotensin Converting Enzyme Inhibitor Start: 03-05-2023 End: 06-03-2023 take 1 tablet by mouth in the morning lisinopril 10 MG tablet Indications: Primary hypertension (CMS/HCC) Take 1 tablet (10 mg) by mouth in the morning. 90 tablet 1 03/05/2023 06/03/2023 Active metFORMIN hydrochloride 500 mg oral tablet (2 sources) Biguanide take 1 tablet by mouth in the morning metFORMIN (Glucophage) 500 MG tablet Take 500 mg by mouth in the morning. 0 Active omeprazole 20 mg delayed release oral capsule (2 sources) Proton Pump Inhibitor Start: 06-11-2019 take 1 capsule by mouth in the morning omeprazole (PriLOSEC) [address] capsule Take 20 mg by mouth in the morning. 0 11/16/2022 Active potassium chloride 20 meq extended release oral tablet (2 sources) Start: 01-19-2023 End: 04-19-2023 take 1 tablet by mouth in the morning potassium chloride CR (K-Tab) 20 MEQ ER tablet Indications: Essential hypertension (CMS/HCC) , Diuretics causing adverse effect in therapeutic use, sequela Take 1 tablet (20 mEq) by mouth in the morning. Do not crush, chew, or split.. 90 tablet 1 01/19/2023 04/19/2023 Active Start: 09-03-2019 potassium chlo ride (K-TAB,KLOR-CON) 10 MEQ CR tablet Take 2 tablets (20 mEq total) by mouth daily. 90 tablet 0 09/03/2019 Active simvastatin 20 mg oral tablet (1 source) HMG-CoA Reductase Inhibitor Start: 01-23-2023 End: 04-23-2023 take 1 tablet by mouth at bedtime simvastatin (Zocor) 20 MG tablet Indications: Mixed hyperlipidemia (CMS/HCC) Take 1 tablet (20 mg) by mouth at bedtime 90 tablet 0 01/23/2023 04/23/2023 Active Problems Active Problems Problem Classification Problem Date Documented Date Episodic/Chronic Acute bronchitis (1 source) Acute infective bronchitis; Translations: [Acute bronchitis due to other specified organisms] Onset: 4 02-21-2023 Episodic Anxiety disorders (2 sources) Anxiety disorder, unspecified; Translations: [Generalized anxiety disorder] Onset: 1 02-14-2023 Chronic Asthma (1 source) Asthma-chronic obstructive pulmonary disease overlap syndrome; Translations: [COPD with asthma] Onset: 3 01-22-2023 Chronic Cancer of bladder (3 sources) Malignant neoplasm, overlapping lesion of bladder; Translations: [Malignant neoplasm of overlapping sites of bladder] Onset: 3 05-01-2022 Chronic Cancer of colon (1 source) Malignant tumor of colon; Translations: [Malignant neoplasm of colon, unspecified] Onset: 3 01-22-2023 Chronic Cardiac dysrhythmias (1 source) Nonsustained ventricular tachycardia ; Translations: [Nonsustained ventricular tachycardia] Onset: 0 02-15-2022 Chronic Chronic obstructive pulmonary disease and bronchiectasis (2 sources) Chronic obstructive pulmonary disease, unspecified; Translations: [Chronic bronchitis] Onset: 2 01-22-2023 Chronic Conduction disorders (4 sources) Presence of cardiac pacemaker; Translations: [Atrioventricular conduction disorder] Onset: 0 02-15-2022 Chronic Diabetes mellitus without complication (6 sources) Type 2 diabetes mellitus without complications; Translations: [Type 2 diabetes mellitus] Onset: 2 Chronic Disorders of lipid metabolism (1 source) Hyperlipidemia; Translations: [Hyperlipidemia, unspecified] Onset: 3 01-22-2023 Chronic E Codes: Adverse effects of medical drugs (1 source) Diuretic adverse reaction; Translations: [Adverse effect of carbonic-anhydrase inhibitors, benzothiadiazides and other diuretics, initial encounter] Onset: 3 01-19-2023 Episodic Esophageal disorders (2 sources) Gastro-esophageal reflux disease without esophagitis; Translations: [Gastroesophageal reflux disease] Onset: 3 01-17-2023 Chronic Essential hypertension (4 sources) Essential (primary) hypertension; Translations: [Essential hypertension] Onset: 3 02-15-2022 Chronic Fluid and electrolyte disorders (5 sources) Hypokalemia; Translations: [Hypokalemia] Onset: 1 Episodic Gout and other crystal arthropathies (2 sources) Gout, unspecified; Translations: [Gout] Onset: 2 01-22-2023 Chronic Hypertension with complications and secondary hypertension (1 source) Hypertensive chronic kidney disease with stage 1 through stage 4 chronic kidney disease, or unspecified chronic kidney disease; Translations: [HTN CKD W/STAGE 1-4 CKD/UNS CKD] Onset: 1 Chronic Osteoarthritis (1 source) Arthritis; Translations: [Unspecified osteoarthritis, unspecified site] Onset: 3 01-22-2023 Chronic Other aftercare (1 source) 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 bug exterminator (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) use of oral hypoglycemic drugs; Translations: [RADIATION PHYSICIST USE ORAL HYPOGLYCEMIC DX] Onset: 2 Episodic Other aftercare (1 source) Other usp (current) drug therapy; Translations: [OTH [facility]CI CURRENT DRUG THERAPY] Onset: 2 Episodic Other and ill-defined heart disease (1 source) Heart disease; Translations: [Heart disease, unspecified] Onset: 3 12-11-2023 Chronic Other connective tissue disease (3 sources) Pain in left toe(s); Translations: [PAIN IN LEFT TOES] Onset: 2 Episodic Other disorders of stomach and duodenum (1 source) Stomach problem; Translations: [Disease of stomach and duodenum, unspecified] Onset: 3 01-22-2023 Episodic Other injuries and conditions due to external causes (1 source) At low risk for fall; Translations: [History of falling] Onset: 3 01-22-2023 Episodic Other lower respiratory disease (1 source) Disorder of lung; Translations: [Other disorders of lung] Onset: 3 01-22-2023 Episodic Other nutritional; endocrine; and metabolic disorders (1 source) Body mass index 25-29 - overweight; Translations: [Overweight] Onset: 3 01-22-2023 Episodic Peripheral and visceral atherosclerosis (1 source) Peripheral vascular disease, unspecified; Translations: [Peripheral vascular disease, unspecified] Onset: 3 01-22-2023 Chronic Screening and history of mental health and substance abuse codes (2 sources) Personal history of nicotine dependence; Translations: [Patient encounter status] Onset: 2 01-22-2023 Episodic Unclassified (1 source) CHRN KIDNEY DISEASE STG 3 UNSP; Translations: [CHRN KIDNEY DISEASE STG 3 UNSP] Onset: 1 Unclassified (1 source) CONTACT W/AND (SUSP) EXPOS COVID-19; Translations: [CONTACT W/AND (SUSP) EXPOS COVID-19] Onset: 1 Past or Other Problems Problem Classification Problem [...] Translations: [DIZZINESS AND GIDDINESS] Onset: 06-10-2020 Episodic Other liver diseases (1 source) Abnormal [...] Urate [Mass/Vol] 7.6 mg/dL Critically high 2.5-6.2 [facility] Comment on above: Performed By: #### U LUC #### [facility] [address] [place] [address] Dr. Vicki Dempsey CBC AUTO DIFFon 02-24-2021 BASO # 0.1 103/ul Normal 0.0-0.1 [facility] Comment on above: Performed By: #### C BC #### [facility] [address] [place] [address] Dr. Vicki Dempsey Basophils/100 WBC (Bld) 1.0 % Normal 0.2-2.0 [facility] Comment on above: Performed By: #### C BC #### [facility] [address] [place] [address] Dr. Vicki Dempsey EO # 0.2 103/ul Normal 0.0-0.7 [facility] Comment on above: Performed By: #### C BC #### [facility] [address] [place] [address] Dr. Vicki Dempsey Eosinophils/100 WBC (Bld) 2.7 % Normal 0.9-7.0 [facility] Comment on above: Performed By: #### C BC #### [facility] [address] [place] [address] Dr. Vicki Dempsey Erythrocyte distribution width (RBC) [Ratio] 12.7 % Normal 11.0-15.0 [facility] Comment on above: Performed By: #### C BC #### [facility] [address] [place] [address] Dr. Vicki Dempsey Hematocrit (Bld) [Volume fraction] 51.0 % Critically high 36.0-48.0 [facility] Comment on above: Performed By: #### C BC #### [facility] [address] [place] [address] Dr. Vicki Dempsey Hemoglobin (Bld) [Mass/Vol] 16.6 g/dL Critically high 12.0-16.0 [facility] Comment on above: Performed By: #### C BC #### [facility] [address] [place] [address] Dr. Vicki Dempsey IG # 0.02 10e3/ul Normal 0.00-0.03 [facility] Comment on above: Performed By: #### C BC #### [facility] [address] [place] [address] Dr. Vicki Dempsey IG % 0.3 % Normal 0.0-0.5 [facility] Comment on above: Performed By: #### C BC #### [facility] [address] [place] [address] Dr. Vicki Dempsey LYMPH # 2.3 103/ul Normal 1.2-3.8 [facility] Comment on above: Performed By: #### C BC #### [facility] [address] [place] [address] Dr. Vicki Dempsey Lymphocytes/100 WBC (Bld) 31.1 % Normal 20.5-60.0 [facility] Comment on above: Performed By: #### C BC #### [facility] [address] [place] [address] Dr. Vicki Dempsey MANUAL DIFF REQ NO Normal [facility] Comment on above: Performed By: #### C BC #### [facility] [address] [place] [address] Dr. Vicki Dempsey MCH (RBC) [Entitic mass] 29.0 pg Normal 26.7-34.0 [facility] Comment on above: Performed By: #### C BC #### [facility] [address] [place] [address] Dr. Vicki Dempsey MCHC (RBC) [Mass/Vol] 32.5 g/dL Normal 29.9-35.2 [facility] Comment on above: Performed By: #### C BC #### [facility] [address] [address] [address] Vicki Dempsey MCV (RBC) [Entitic vol] 89.0 fL Normal 81.0-99.0 [facility] Comment on above: Performed By: #### C BC #### [facility] [address] [address] [address] Vicki Dempsey MONO # 0.6 103/ul Normal 0.3-0.8 [facility] Comment on above: Performed By: #### C BC #### [facility] [address] [address] [address] Vicki Dempsey Monocytes/100 WBC (Bld) 8.7 % Normal 1.7-12.0 [facility] Comment on above: Performed By: #### C BC #### [facility] [address] [place] [address] Dr. Vicki Dempsey NEUT # 4.1 103/ul Normal 1.4-6.5 [facility] Comment on above: Performed By: #### C BC #### [facility] [address] [place] [address] Dr. Vicki Dempsey Neutrophils/100 WBC (Bld) 56.2 % Normal 43.0-75.0 [facility] Comment on above: Performed By: #### C BC #### [facility] [address] [place] [address] Dr. Vicki Dempsey Platelet mean volume (Bld) [Entitic vol] 9.6 fL Normal 9.5-13.5 [facility] Comment on above: Performed By: #### C BC #### [facility] [address] [place] [address] Dr. Vicki Dempsey PLT 298 103/ul Normal 150-450 [facility] Comment on above: Performed By: #### C BC #### [facility] [address] [place] [address] Dr. Vicki Dempsey RBC 5.73 106/ul Critically high 4.20-5.40 [facility] Comment on above: Performed By: #### C BC #### [facility] [address] [address] [address] Vicki Dempsey WBC 7.3 103/ul Normal 4.0-11.0 [facility] Comment on above: Performed By: #### C BC #### [facility] [address] [place] [address] Dr. Vicki Dempsey GLYCOHEMOGLOBIN A1Con 2021 ADA RECOMMENDATION ADA THERAPEUTIC TARGET 6.0 - 7.0 ACTION SUGGESTED > 7.0 Normal [facility] Comment on above: Performed By: #### A 1C #### [facility] [address] [place] [address] Dr. Vicki Dempsey Glucose [Mass/Vol] 128 mg/dL Normal [facility] Comment on above: Performed By: #### A 1C #### [facility] [address] [place] [address] Dr. Vicki Dempsey HbA1c (Bld) [Mass fraction] 6.1 % Critically high <=6.0 [facility] Comment on above: Performed By: #### A 1C #### [facility] [address] [place] [address] Dr. Vicki Dempsey MICROALBUMIN, RAND URon 02-12 mALB 2.1 mg/L Normal <=30.0 [facility] Comment on above: Performed By: #### U LUC #### [facility] [address] [place] [address] Dr. Vicki Dempsey PROF 14(COMP METB)on 022 Albumin [Mass/Vol] 4.0 g/dL Normal 3.5-5.0 [facility] Comment on above: Performed By: #### C MP #### [facility] [address] [place] [address] Dr. Vicki Dempsey Albumin/Globulin [Mass ratio] 1.0 {ratio} Normal [facility] Comment on above: Performed By: #### C MP #### [facility] [address] [place] [address] Dr. Vicki Dempsey ALP [Catalytic activity/Vol] 104 U/L Normal 38-126 [facility] Comment on above: Performed By: #### C MP #### [facility] [address] [address] [address] Vicki Dempsey ALT [Catalytic activity/Vol] 30 U/L Normal 9-52 [facility] Comment on above: Performed By: #### C MP #### [facility] [address] [address] [address] Vicki Dempsey Anion gap [Moles/Vol] 11.2 mmol/L Normal Th [facility] Comment on above: Performed By: #### C MP #### [facility] [address] [address] [address] Vicki Dempsey AST [Catalytic activity/Vol] 19 U/L Normal 14-36 [facility] Comment on above: Performed By: #### C MP #### [facility] [address] [place] [address] Dr. Vicki Dempsey Bilirubin [Mass/Vol] 0.5 mg/dL Normal 0.2-1.3 [facility] Comment on above: Performed By: #### C MP #### [facility] [address] [place] [address] Dr. Vicki Dempsey Calcium [Mass/Vol] 9.6 mg/dL Normal 8.4-10.2 [facility] Comment on above: Performed By: #### C MP #### [facility] [address] [place] [address] Dr. Vicki Dempsey Chloride [Moles/Vol] 99 mmol/L Normal 98-107 [facility] Comment on above: Performed By: #### C MP #### [facility] [address] [place] [address] Dr. Vicki Dempsey CO2 [Moles/Vol] 32.1 mmol/L Critically high 22.0-30.0 [facility] Comment on above: Performed By: #### C MP #### [facility] [address] [address] [address] Vicki Dempsey Creatinine [Mass/Vol] 1.07 mg/dL Critically high 0.52-1.04 [facility] Comment on above: Performed By: #### C MP #### [facility] [address] [address] [address] Vicki Dempsey EGFR-AF VIET[place]ESE >60 Normal >=60 [facility] Comment on above: Performed By: #### C MP #### [facility] [address] [address] [address] Vicki Dempsey EGFR-NON AF VI[place]ESE 50 mL/min/1.73m2 Critically low >=60 [facility] Comment on above: Performed By: #### C MP #### [facility] [address] [address] [address] Vicki Dempsey Globulin (S) [Mass/Vol] 3.9 g/dL Normal [facility] Comment on above: Performed By: #### C MP #### [facility] [address] [place] [address] Dr. Vicki Dempsey Glucose [Mass/Vol] 100 mg/dL Normal 74-106 [facility] Comment on above: Performed By: #### C MP #### [facility] [address] [address] [address] Vicki Dempsey Potassium [Moles/Vol] 3.3 mmol/L Critically low 3.4-5.0 [facility] Comment on above: Performed By: #### C MP #### [facility] [address] [address] [address] Vicki Dempsey Protein [Mass/Vol] 7.9 g/dL Normal 6.1-8.2 [facility] Comment on above: Performed By: #### C MP #### [facility] [address] [address] [address] Vicki Dempsey Sodium [Moles/Vol] 139 mmol/L Normal 137-145 [facility] Comment on above: Performed By: #### C MP #### [facility] [address] [address] [address] Vicki Dempsey Urea nitrogen [Mass/Vol] 13.0 mg/dL Normal 7.0-17.0 [facility] Comment on above: Performed By: #### C MP #### [facility] [address] [place] [address] Dr. Vicki Dempsey Urea nitrogen/Creatinine [Mass ratio] 12.1 mg/mg Normal [facility] Comment on above: Performed By: #### C MP #### [facility] [address] [place] [address] Dr. Vicki Dempsey PROF 14(COMP METB)on 021 Albumin [Mass/Vol] 3.8 g/dL Normal 3.5-5.0 [facility] Comment on above: Performed By: #### U LUC #### [facility] [address] [place] [address] Dr. Vicki Dempsey Albumin/Globulin [Mass ratio] 0.9 {ratio} Normal [facility] Comment on above: Performed By: #### U LUC #### [facility] [address] [place] [address] Dr. Vicki Dempsey ALP [Catalytic activity/Vol] 82 U/L Normal 38-126 [facility] Comment on above: Performed By: #### U LUC #### [facility] [address] [place] [address] Dr. Vicki Dempsey ALT [Catalytic activity/Vol] 21 U/L Normal 9-52 [facility] Comment on above: Performed By: #### U LUC #### [facility] [address] [place] [address] Dr. Vicki Dempsey Anion gap [Moles/Vol] 9.1 mmol/L Normal [facility] Comment on above: Performed By: #### U LUC #### [facility] [address] [place] [address] Dr. Vicki Dempsey AST [Catalytic activity/Vol] 16 U/L Normal 14-36 [facility] Comment on above: Performed By: #### U LUC #### [facility] [address] [place] [address] Dr. Vicki Dempsey Bilirubin [Mass/Vol] 0.7 mg/dL Normal 0.2-1.3 [facility] Comment on above: Performed By: #### U LUC #### [facility] [address] [place] [address] Dr. Vicki Dempsey Calcium [Mass/Vol] 9.6 mg/dL Normal 8.4-10.2 [facility] Comment on above: Performed By: #### U LUC #### [facility] [address] [address] [address] Vicki Dempsey Chloride [Moles/Vol] 99 mmol/L Normal 98-107 [facility] Comment on above: Performed By: #### U LUC #### [facility] [address] [place] [address] Dr. Vicki Dempsey CO2 [Moles/Vol] 33.5 mmol/L Critically high 22.0-30.0 [facility] Comment on above: Performed By: #### U LUC #### [facility] [address] [address] [address] Vicki Dempsey Creatinine [Mass/Vol] 1.04 mg/dL Normal 0.52-1.04 [facility] Comment on above: Performed By: #### U LUC #### [facility] [address] [place] [address] Dr. Vicki Dempsey EGFR-AF VIET[place]ESE >60 Normal >=[address] [facility] Comment on above: Performed By: #### U LUC #### [facility] [address] [place] [address] Dr. Vicki Dempsey EGFR-NON AF VIET[place]ESE 52 mL/min/1.73m2 Critically low >=60 [facility] Comment on above: Performed By: #### U LUC #### [facility] [address] [place] [address] Dr. Vicki Dempsey Globulin (S) [Mass/Vol] 4.0 g/dL Normal [facility] Comment on above: Performed By: #### U LUC #### [facility] [address] [place] [address] Dr. Vicki Dempsey Glucose [Mass/Vol] 110 mg/dL Critically high 74-106 [facility] Comment on above: Performed By: #### U LUC #### [facility] [address] [place] [address] Dr. Vicki Dempsey Potassium [Moles/Vol] 3.6 mmol/L Normal 3.4-5.0 [facility] Comment on above: Performed By: #### U LUC #### [facility] [address] [place] [address] [address] Vicki Dempsey Protein [Mass/Vol] 7.8 g/dL Normal 6.1-8.2 [facility] Comment on above: Performed By: #### U LUC #### [facility] [address] [place] [address] Dr. Vicki Dempsey Sodium [Moles/Vol] 138 mmol/L Normal 137-145 [facility] Comment on above: Performed By: #### U LUC #### [facility] [address] [place] [address] Dr. Vicki Dempsey Urea nitrogen [Mass/Vol] 21.0 mg/dL Critically high 7.0-17.0 [facility] Comment on above: Performed By: #### U LUC #### [facility] [address] [place] [address] Dr. Vicki Dempsey Urea nitrogen/Creatinine [Mass ratio] 20.2 mg/mg Normal [facility] Comment on above: Performed By: #### U LUC #### [facility] [address] [place] [address] Dr. Vicki Dempsey CBC AUTO DIFFon 06-07-2020 BASO # 0.1 103/ul Normal 0.0-0.1 [facility] Comment on above: Performed By: #### C BC #### [facility] [address] [place] [address] Joanne Jewels Basophils/100 WBC (Bld) 1.0 % Normal 0.2-2.0 [facility] Comment on above: Performed By: #### C BC #### [facility] [address] [place] [address] Joanne Jewels EO # 0.2 103/ul Normal 0.0-0.7 [facility] Comment on above: Performed By: #### C BC #### [facility] [address] [place] [address] Joanne Jewels Eosinophils/100 WBC (Bld) 3.2 % Normal 0.9-7.0 [facility] Comment on above: Performed By: #### C BC #### [facility] [address] [place] [address] Joanne Jewels Erythrocyte distribution width (RBC) [Ratio] 12.7 % Normal 11.0-15.0 [facility] Comment on above: Performed By: #### C BC #### [facility] [address] [place] [address] Joanne Jewels Hematocrit (Bld) [Volume fraction] 47.8 % Normal 36.0-48.0 [facility] Comment on above: Performed By: #### C BC #### [facility] [address] [place] [address] Joanne Jewels Hemoglobin (Bld) [Mass/Vol] 15.5 g/dL Normal 12.0-16.0 [facility] Comment on above: Performed By: #### C BC #### [facility] [address] [place] [address] Joanne Jewels IG # 0.02 10e3/ul Normal 0.00-0.03 [facility] Comment on above: Performed By: #### C BC #### [facility] [address] [place] [address] Joanne Jewels IG % 0.3 % Normal 0.0-0.5 [facility] Comment on above: Performed By: #### C BC #### [facility] [address] [place] [address] Joanne Jewels LYMPH # 2.1 103/ul Normal 1.2-3.8 [facility] Comment on above: Performed By: #### C BC #### [facility] [address] [place], [place] [id number] Joanne Jewels Lymphocytes/100 WBC (Bld) 34.8 % Normal 20.5-60.0 [facility] Comment on above: Performed By: #### C BC #### [facility] [address] [place] [address] Joanne Jewels MANUAL DIFF REQ NO Normal [facility] Comment on above: Performed By: #### C BC #### [facility] [address] [place] [address] Joanne Donis MCH (RBC) [Entitic mass] 28.5 pg Normal 26.7-34.0 [facility] Comment on above: Performed By: #### C BC #### [facility] [address] [place] [address] Joanne Donis MCHC (RBC) [Mass/Vol] 32.4 g/dL Normal 29.9-35.2 [facility] Comment on above: Performed By: #### C BC #### [facility] [address] [place] [address] Joannejared Donis MCV (RBC) [Entitic vol] 87.9 fL Normal 81.0-99.0 [facility] Comment on above: Performed By: #### C BC #### [facility] [address] [place] [address] Joanne Donis MONO # 0.7 103/ul Normal 0.3-0.8 [facility] Comment on above: Performed By: #### C BC #### [facility] [address] [place] [address] Joanne Donis Monocytes/100 WBC (Bld) 11.1 % Normal 1.7-12.0 [facility] Comment on above: Performed By: #### C BC #### [facility] [address] [place] [address] Joanne Donis NEUT # 3.0 103/ul Normal 1.4-6.5 [facility] Comment on above: Performed By: #### C BC #### [facility] [address] [place] [address] Joanne Jewels Neutrophils/100 WBC (Bld) 49.6 % Normal 43.0-75.0 [facility] Comment on above: Performed By: #### C BC #### [facility] [address] [place], [place] [id number] Joanne Jewels Platelet mean volume (Bld) [Entitic vol] 9.9 fL Normal 9.5-13.5 [facility] Comment on above: Performed By: #### C BC #### [facility] [address] [place] [address] Joanne Donis PLT 248 103/ul Normal 150-450 [facility] Comment on above: Performed By: #### C BC #### [facility] [address] [place], [place] [address] Joanne Donis RBC 5.44 106/ul Critically high 4.20-5.[address] [facility] Comment on above: Performed By: #### C BC #### [facility] [address] [place], [place] [address] Joanne Donis WBC 6.0 103/ul Normal 4.0-11.0 [facility] Comment on above: Performed By: #### C BC #### [facility] [address] [place], [place] [address] Joanne Donis ECHO LIMITED STUDYon 021 ECHO LIMITED STUDY Patient: JEWELS MARQUEZ Exam Date: 06/07/2020 : 1945 Gender:F Ordering : DR. BHAVNA RUANO . Admission #: [id number] Family : DR KALLI LOVETT D.O. Order #: [id number] CLICK HERE TO VIEW EXAM ECHOCARDIOGRAM REPORT [...] Area(A4C): 16.30 cm2 Left Atrium Systolic Volume(A2C): 49580 mm3 Left Atrium Systolic Volume(A4C): 93639 mm3 Mitral Valve Right Ventricle Aorta AO Root Diam: 3.00 cm Aortic Valve Tricuspid Valve Pulmonic Valve Right Atrium Dictated by: Lj Bradley M.D. on 06/07/2020 at 17:50 Approved by: Lj Bradley M.D. on 06/07/2020 at 17:52 Normal [facility] POINT OF CARE GLUCOSEon 05-14 Glucose [Mass/Vol] 101 mg/dL Normal 74-106 [facility] Comment on above: Performed By: #### U LUC #### [facility] [address] [place] [address] Dr. Vicki Dempsey PROF CHEM 8 (BAS METB)on Anion gap [Moles/Vol] 7.4 mmol/L Normal [facility] Comment on above: Performed By: #### B MP #### [facility] [address] [place] [address] Joanne Jewels Calcium [Mass/Vol] 9.3 mg/dL Normal 8.4-10.2 [facility] Comment on above: Performed By: #### B MP #### [facility] [address] [place] [address] Joanne Jewels Chloride [Moles/Vol] 105 mmol/L Normal 98-107 The [facility] Comment on above: Performed By: #### B MP #### [facility] [address] [place] [address] Joanne Jewels CO2 [Moles/Vol] 31.7 mmol/L Critically high 22.0-30.0 [facility] Comment on above: Performed By: #### B MP #### [facility] [address] [place] [id number] Joanne Jewels Creatinine [Mass/Vol] 1.08 mg/dL Critically high 0.52-1.04 [facility] Comment on above: Performed By: #### B MP #### [facility] [address] [place] [id number] Joanne Jewels EGFR-AF VIETNAMESE =60 Normal >=[address] [facility] Comment on above: Performed By: #### B MP #### [facility] [address] [place] [id number] Joanne Jewels EGFR-NON AF VIET[place]ESE 50 mL/min/1.73m2 Critically low >=60 [facility] Comment on above: Performed By: #### B MP #### [facility] [address] [place] [address] Joanne Jewels Glucose [Mass/Vol] 111 mg/dL Critically high 74-106 [facility] Comment on above: Performed By: #### B MP #### [facility] [address] [place] [id number] Joanne Jewels Potassium [Moles/Vol] 3.1 mmol/L Critically low 3.4-5.0 [facility] Comment on above: Performed By: #### B MP #### [facility] [address] [place] [id number] Joanne Jewels Sodium [Moles/Vol] 141 mmol/L Normal 137-145 [facility] Comment on above: Performed By: #### B MP #### [facility] [address] [place] [id number] Joanne Jewels Urea nitrogen [Mass/Vol] 20.0 mg/dL Critically high 7.0-17.0 [facility] Comment on above: Performed By: #### B MP #### [facility] [address] [place] [id number] Joanne Jewels Urea nitrogen/Creatinine [Mass ratio] 18.5 mg/mg Normal [facility] Comment on above: Performed By: #### B MP #### [facility] [address] [place] [address] Joanne Donis CBC AUTO DIFFon 06-06-2020 BASO # 0.1 103/ul Normal 0.0-0.1 [facility] Comment on above: Performed By: #### U LUC #### [facility] [address] [place] [address] [address] Vicki Dempsey Basophils/100 WBC (Bld) 0.9 % Normal 0.2-2.0 [facility] Comment on above: Performed By: #### U LUC #### [facility] [address] [place] [address] [address] Vicki Dempsey EO # 0.1 103/ul Normal 0.0-0.7 [facility] Comment on above: Performed By: #### U LUC #### [facility] [address] [place] [address] [address] Vicki Dempsey Eosinophils/100 WBC (Bld) 1.9 % Normal 0.9-7.0 [facility] Comment on above: Performed By: #### U LUC #### [facility] [address] [place] [address] [address] Vicki Dempsey Erythrocyte distribution width (RBC) [Ratio] 12.6 % Normal 11.0-15.0 [facility] Comment on above: Performed By: #### U LUC #### [facility] [address] [place] [address] [address] Vicki Dempsey Hematocrit (Bld) [Volume fraction] 51.7 % Critically high 36.0-48.0 [facility] Comment on above: Performed By: #### U LUC #### [facility] [address] [place] [address] [address] Vicki Dempsey Hemoglobin (Bld) [Mass/Vol] 17.6 g/dL Critically high 12.0-16.0 [facility] Comment on above: Performed By: #### U LUC #### [facility] [address] [place] [address] [address] Vicki Dempsey IG # 0.02 10e3/ul Normal 0.00-0.03 [facility] Comment on above: Performed By: #### U LUC #### [facility] [address] [place] [address] Dr. Vicki Dempsey IG % 0.3 % Normal 0.0-0.5 [facility] Comment on above: Performed By: #### U LUC #### [facility] [address] [place] [address] Dr. Vicki Dempsey LYMPH # 1.8 103/ul Normal 1.2-3.8 [facility] Comment on above: Performed By: #### U LUC #### [facility] [address] [place] [address] Dr. Vicki Dempsey Lymphocytes/100 WBC (Bld) 23.8 % Normal 20.5-60.0 [facility] Comment on above: Performed By: #### U LUC #### [facility] [address] [place] [address] Dr. Vicki Dempsey MANUAL DIFF REQ NO Normal [facility] Comment on above: Performed By: #### U LUC #### [facility] [address] [place] [address] Dr. Vicki Dempsey MCH (RBC) [Entitic mass] 29.1 pg Normal 26.7-34.0 [facility] Comment on above: Performed By: #### U LUC #### [facility] [address] [place] [address] Dr. Vicki Dempsey MCHC (RBC) [Mass/Vol] 34.0 g/dL Normal 29.9-35.2 [facility] Comment on above: Performed By: #### U LUC #### [facility] [address] [place] [address] Dr. Vicki Dempsey MCV (RBC) [Entitic vol] 85.5 fL Normal 81.0-99.0 [facility] Comment on above: Performed By: #### U LUC #### [facility] [address] [place] [address] Dr. Vicki Dempsey MONO # 0.7 103/ul Normal 0.3-0.8 [facility] Comment on above: Performed By: #### U LUC #### [facility] [address] [place] [address] [address] Vicki Dempsey Monocytes/100 WBC (Bld) 9.4 % Normal 1.7-12.0 [facility] Comment on above: Performed By: #### U LUC #### [facility] [address] [place] [address] [address] Vicki Dempsey NEUT # 4.8 103/ul Normal 1.4-6.5 [facility] Comment on above: Performed By: #### U LUC #### [facility] [address] [place] [address] [address] Vicki Dempsey Neutrophils/100 WBC (Bld) 63.7 % Normal 43.0-75.0 [facility] Comment on above: Performed By: #### U LUC #### [facility] [address] [place] [address] Dr. Vicki Dempsey Platelet mean volume (Bld) [Entitic vol] 10.1 fL Normal 9.5-13.5 [facility] Comment on above: Performed By: #### U LUC #### [facility] [address] [place] [address] Dr. Vicki Dempsey PLT 309 103/ul Normal 150-450 [facility] Comment on above: Performed By: #### U LUC #### [facility] [address] [place] [address] Dr. Vicki Dempsey RBC 6.05 106/ul Critically high 4.20-5.[address] [facility] Comment on above: Performed By: #### U LUC #### [facility] [address] [place] [address] Dr. Vicki Dempsey WBC 7.5 103/ul Normal 4.0-11.0 [facility] Comment on above: Performed By: #### U LUC #### [facility] [address] [place] [address] Dr. Vicki Dempsey POINT OF CARE GLUCOSEon -2 Glucose [Mass/Vol] 114 mg/dL Critically high 74-106 [facility] Comment on above: Performed By: #### U LUC #### [facility] [address] [place], [place] [address] Dr. Vicki Dempsey PROF 14(COMP METB)on 021 Albumin [Mass/Vol] 4.0 g/dL Normal 3.5-5.0 [facility] Comment on above: Performed By: #### H FELECIA, CMP #### [facility] [address] [place] [id number] Joanne Jewels Albumin/Globulin [Mass ratio] 0.9 {ratio} Normal [facility] Comment on above: Performed By: #### H FELECIA, CMP #### [facility] [address] [place] [address] Joanne Jewels ALP [Catalytic activity/Vol] 91 U/L Normal 38-126 [facility] Comment on above: Performed By: #### H FELCEIA, CMP #### [facility] [address] [place] [address] Joanne Jewels ALT [Catalytic activity/Vol] 29 U/L Normal 9-52 [facility] Comment on above: Performed By: #### H FELECIA, CMP #### [facility] [address] [place] [id number] Joanne Jewels Anion gap [Moles/Vol] 10.9 mmol/L Normal [facility] Comment on above: Performed By: #### H FELECIA, CMP #### [facility] [address] [place] [address] Joanne Jewels AST [Catalytic activity/Vol] 22 U/L Normal 14-36 [facility] Comment on above: Performed By: #### H FELECIA, CMP #### [facility] [address] [place] [id number] Joanne Jewels Bilirubin [Mass/Vol] 0.8 mg/dL Normal 0.2-1.3 [facility] Comment on above: Performed By: #### H FELECIA, CMP #### [facility] [address] [place] [id number] Joanne Jewels Calcium [Mass/Vol] 9.6 mg/dL Normal 8.4-10.2 [facility] Comment on above: Performed By: #### H STROPN, CMP #### [facility] [address] [place] [address] Joanne Jewels Chloride [Moles/Vol] 98 mmol/L Normal 98-107 [facility] Comment on above: Performed By: #### H STROPN, CMP #### [facility] [address] [place] [address] Joanne Jewels CO2 [Moles/Vol] 30.8 mmol/L Critically high 22.0-30.0 [facility] Comment on above: Performed By: #### H STROPN, CMP #### [facility] [address] [place] [address] Joanne Jewels Creatinine [Mass/Vol] 1.20 mg/dL Critically high 0.52-1.04 [facility] Comment on above: Performed By: #### H STROPN, CMP #### [facility] [address] [place] [address] Joanne Jewels EGFR-AF VIET[place]ESE 53 mL/min/1.73m2 Critically low >=60 [facility] Comment on above: Performed By: #### H STROPN, CMP #### [facility] [address] [place] [address] Joanne Jewels EGFR-NON AF VI[place]ESE 44 mL/min/1.73m2 Critically low >=60 [facility] Comment on above: Performed By: #### H STROPN, CMP #### [facility] [address] [place] [address] Joanne Jewels Globulin (S) [Mass/Vol] 4.4 g/dL Normal [facility] Comment on above: Performed By: #### H STROPN, CMP #### [facility] [address] [place] [address] Joanne Jewels Glucose [Mass/Vol] 124 mg/dL Critically high 74-106 T [facility] Comment on above: Performed By: #### H STROPN, CMP #### [facility] [address] [place] [address] Joanne Jewels Potassium [Moles/Vol] 2.7 mmol/L Critically low 3.4-5.0 [facility] Comment on above: Result Comment: Test repeated. Critical value verified. Performed By: #### H FELECIA, CMP #### [facility] [address] [place] [address] Joanne Donis Protein [Mass/Vol] 8.4 g/dL Critically high 6.1-8.2 T [facility] Comment on above: Performed By: #### H FELECIA, CMP #### [facility] [address] [place] [address] Joanne Donis Sodium [Moles/Vol] 137 mmol/L Normal 137-145 [facility] Comment on above: Performed By: #### H FELECIA, CMP #### [facility] [address] [place] [address] Joanne Donis Urea nitrogen [Mass/Vol] 18.0 mg/dL Critically high 7.0-17.0 [facility] Comment on above: Performed By: #### H FELECIA, CMP #### [facility] [address] [place] [address] Joanne Donis Urea nitrogen/Creatinine [Mass ratio] 15.0 mg/mg Normal [facility] Comment on above: Performed By: #### H FELECIA, CMP #### [facility] [address] [place] [address] Joanne Donis Rapid Covid-19 PCR (CVDRPD)o n 06-06-2020 SARS-CoV-2 (COVID-19) RNA TANMAY+probe Ql (Unsp spec) Not detected Normal NOT DETECTED [facility] Comment on above: Result Comment: This test is not yet approved or cleared by the [place] Food and Drug Administration (FDA). This test was developed by [email or web address], [place], [place]. The performance characteristics of this test were validated by The [facility]. The results are not intended to be used as the sole means for clinical diagnosis or patient management decisions. The [facility] is authorized under Clinical Laboratory Improvement Amendments (CLIA) to perform high- complexity testing. When diagnostic testing is negative, the possibility of a false negative should be considered in the context of a patient's recent exposures and the presence of clinical signs and symptoms consistent with SARS-CoV-2. Performed By: #### C VDRPD #### [facility] [address] [place], [place] [address] Joanne Donis TROPONIN, HIGH SENSITIVITYon 06-06-2020 HSTROP 64.1 pg/mL Critically high 4.0-35.5 [facility] Comment on above: Result Comment: CUT- OFF POINTS HAVE BEEN ESTABLISHED BASED ON THE FOURTH UNIVERSAL DEFINITIONS OF MYOCARDIAL INFARCTION. THE UPPER REFERENCE LIMIT (URL) OF TROPONIN, DEFINED THE 99TH PERCENTILE OF cTnI DISTRIBUTION IN A REFERENCE POPULATION, HAS BEEN CONFIRMED THE DECISION THRESHOLD FOR [place] DIAGNOSIS. Test repeated. Critical value verified. Performed By: #### H STROPN #### [facility] [address] [place] [address] Joanne Donis HSTROP 66.3 pg/mL Critically high 4.0-35.5 [facility] Comment on above: Result Comment: CUT- OFF POINTS HAVE BEEN ESTABLISHED BASED ON THE FOURTH UNIVERSAL DEFINITIONS OF MYOCARDIAL INFARCTION. THE UPPER REFERENCE LIMIT (URL) OF TROPONIN, DEFINED THE 99TH PERCENTILE OF cTnI DISTRIBUTION IN A REFERENCE POPULATION, HAS BEEN CONFIRMED THE DECISION THRESHOLD FOR [place] DIAGNOSIS. Test repeated. Critical value verified. Performed By: #### H STROPN, CMP #### [facility] [address] [id number] Joanne Donis XR CHEST 1 Von 06-06-2020 [...] by: CAITLIN GUERRERO Date: 2020-06-06 14:01 Normal [facility] Encounters Encounter Date Encounter Type Care Provider Facility Start: 04-23-2023 End: 04-23-2023 ambulatory LALI SARAVIA Not Available Start: 03-22-2023 Refill Lali Saravia ENGINEERING TECHNICIAN Work Phone: [facility] Comment on above: Primary hypertension (CMS/HCC) (Primary Dx) Start: 02-21-2023 End: 02-21-2023 ambulatory LALI RANI Not Available Start: 02-06-2023 Telephone encounter Lali Arrington CMA [facility] Start: 01-22-2023 End: 01-22-2023 ambulatory LALI RANI Not Available Start: 04-27-2021 End: 04-27-2021 ambulatory [...] Screening for malignant neoplasm of colon Colonoscopy [facility] Start: 08-23-2023 Urine screening for protein Diabetes: Urine Protein Screening [facility] Start: 04-23-2023 End: 04-23-2023 Patient encounter procedure 04/23/2023 8:00 AM EDT Office Visit [facility] [address] [place] [address] Lali Saravia, SRAVAN [address] [place] [address] [facility] Start: 03-10-2023 Adult BMI Screening Adult BMI Screening [facility] Start: 02-15-2023 Tobacco Screening Tobacco Screening [facility] Start: 02-07-2023 End: 02-07-2023 Clinical Support [facility] Start: 11-22-2022 Hemoglobin A1c measurement Diabetes: Hemoglobin A1C [facility] Start: 05-04-2011 Fall Risk Screening Fall Risk Screening [facility] Start: 1965 Administration of varicella zoster vaccine Zoster (Shingles) Vaccine (1 of 2) [facility] Start: 1965 DTaP,Tdap and Td Vaccines (1 - Tdap) DTaP,Tdap and Td Vaccines (1 - Tdap) [facility] Start: 1964 Adult BMI Follow Up Plan Adult BMI Follow Up Plan [facility] Start: 1958 Depression Screening Depression Screening [facility] Start: 1956 Glaucoma screening Diabetes: Retinopathy Screening [facility] Start: 1946 Medicare Annual Wellness Visit Medicare Annual Wellness Visit [facility] Immunizations Immunization Date Immunization Notes Care Provider Fa cili 10-30-2022 Influenza, Seasonal, Quadrivalent, Adjuvanted Lali Aichholz ENGINEERING TECHNICIAN Work Phone: [facility] 10-19-2020 Influenza, Seasonal, Quadrivalent, Adjuvanted Lali Aichholz ENGINEERING TECHNICIAN Work Phone: [facility] 11-11-2019 Influenza, Seasonal, Quadrivalent, Adjuvanted Lali Aichholz ENGINEERING TECHNICIAN Work Phone: [facility] 10-29-2018 influenza, high dose seasonal, preservative-free Lali Nury [facility] 10-29-2018 pneumococcal polysaccharide vaccine, 23 valent Lali Nury [facility] 12-18-2017 influenza, injectabl e, quadrivalent, preservative free Lali Nury [facility] 11-17-2016 Seasonal trivalent influenza vaccine, adjuvanted, preservative free Lali Nury [facility] 10-31-2016 influenza, injectabl e, quadrivalent, preservative free Lali Nury [facility] 09-25-2016 pneumococcal polysaccharide vaccine, 23 valent Lali Nury [facility] 12-11-2015 influenza, high dose seasonal, preservative-free Lali Nury [facility] 11-06-2012 influenza virus vacc ine, whole virus Lali Nury [facility] 11-14-2011 influenza virus vacc ine, whole virus Lali Nury [facility] 11-09-2010 influenza virus vacc ine, whole virus Lali Unry [facility] 11-24-2009 influenza virus vacc ine, whole virus Lali Nury [facility] 11-18-2008 influenza virus vacc ine, whole virus Lali Arrington [facility] Payers Date Payer Category Payer Unknown AARP AARP [id number] 2022-Present [address] [place] [address] [id number] 2012 Private Health Insurance [facility] AARP SUPPLEMENT [id number] 2012-Present [phone] [address] [place] [address] [id number] 2011 Medicare [id number] 1959 Medicare [id number] 1959 Unknown [id number] 1946 Unknown [id number] 1946 Unknown [id number] 1946 Unknown [id number] 1946 Unknown [id number] 1946 Unknown [id number] 1946 Unknown [id number] 1946 Unknown [id number] 1946 Unknown [id number] Social History Date Type Detail Facility Start: 10-03-2021 End: 01-20-2023 Tobacco smoking status NHIS Ex-smoker [facility] End: 02-12-1995 History of tobacco use Current smoker [facility] End: 02-12-1995 History of tobacco use Cigarette Smoker [facility] Start: 10-03-2021 End: 01-19-2023 Cigarettes smoked current (pack per day) - Reported 0.5 [facility] Start: 10-03-2021 Tobacco use and exposure Smokeless tobacco non-user [facility] Start: 03-10-2022 Alcohol intake Current non-drinker of alcohol (finding) [facility] Start: 02-15-2022 End: 01-19-2023 Tobacco use panel [facility] Housing Instability Unknown [facility] Start: 1945 Sex Assigned At Female [facility] Start: 07-12-2020 Gender identity Identifies as female gender (finding) [facility] Start: 07-12-2020 Sexual orientation Heterosexual (finding) [facility] Start: 02-21-2023 Alcohol intake Ex-drinker (finding) [facility] Within the last year , have you been afraid of your partner or ex-partner? No [facility] Are you now , , , , never or living with a partner? [facility] How often to you hav e a drink containing alcohol? Never [facility] How hard is it for y ou to pay for the very basics like food, housing, medical care, and heating Not very hard [facility] Do you feel stress - tense, restless, nervous, or anxious, or unable to sleep at night because your mind is troubled all the time - these days [OSQ] Rather much [facility] (I/We) worried wheth er (my/our) food would run out before (I/we) got money to buy more. Never true [facility] Start: 01-20-2023 Tobacco Comment Last smoked: >10 years [facility] Medical Equipment Procedure Code Equipment Code Equipment Origin al Text Equipment Identifier Dates Lead Capsure Fix [id number] [id number] - [id number] - [id number] Start: 06-27-2019 Cardiac pacemaker, device (physical object) ([id number]) [facility] [employer] - [id number] - [id number] Start: 06-27-2019 Note 02-06-2023 Telephone Encounter - Lali Arrington CMA - 02/06/2023 9:38 AM EST Note Date & Type Note Facility 02-06-2023 Miscellaneous Notes Formattin g of this note might be different from the original. Called patient to remind them to bring their most current copy of their medication list with them to their appt. Patient verbalizes understanding. documented in this encounter [facility] Telephone encounter Note 02-06-2023 Telephone Encounter - Lali Arrington CMA - 02/06/2023 9:38 AM EST Note Date & Type Note Facility 02-06-2023 Telephone encount er Note Called patient to remind them to bring their most current copy of their medication list with them to their appt. Patient verbalizes understanding. [facility] Clinical Note 04-27-2021 Note Date & Type Note Facility 04-27-2021 Note PROCEDURE: XR FOOT L T MIN 3 VIEWS COMPARISON: None. HISTORY: Pain FINDINGS: BONES:No acute fracture or dislocation. Mild to moderate enthesopathic spurring plantar calcaneus SOFT TISSUES:Negative. No visible soft tissue swelling. EFFUSION:None visible. OTHER: Negative. IMPRESSION: No acute abnormality Electronically authenticated by: CAITLIN HENDRICKSON Date: 2021-04-27 13:13 [facility] Evaluation note Note Date & Type Note Facility Evaluation note Diagnosis Primary hypertension (CMS/HCC)- Primary Unspecified essential hypertension documented in this encounter [facility] Instructions Note Date & Type Note Facility Instructions Not on filedocumented in this en counter [facility] Summary Purpose Family History No Family History Records FoundNo Family History Records Found Advance Directives No Advanced Directives Records FoundLatest Code Status on File Code Status Date Activated Date Inactivated Comments Full Code 06/25/2019 4:11 PM 06/28/2019 6:33 PM Additional Source Comments INFORMATION SOURCE (unrecogn ized section and content) DATE CREATED AUTHOR 04/29/2021 [facility] DATE CREATED AUTHOR AUTHOR'S MERCED ATKENDALL 04/23/2023 [facility] Care Teams (unrecognized sec tion and content) Disbursing Agent Relationship Specialty Start Date End Date Lali Saravia, PET CARE ATTENDANT-KEY CUTTER [address] [place] [address] PCP - General Nurse Practitioner 01/29/23 Disbursing Agent Relationship Specialty Start Date End Date Arsh Dunham MD [address] [place] [address] PCP - General Family Medicine 02/12/22 Lali Saravia NP [address] [place] [address] Nurse Practitioner Family Medicine 02/12/22 FOR RECORDS PERTAINING TO PATIENTS WHO ARE [...] BE BASED ON THE PRIMARY CLINICAL RECORDS. [facility] [employer] provides no warranty or guarantee of the accuracy or completeness of information in this document.
[2023-04-24 06:55] LABS: Basophils Absolute Auto 0.1 10^3/uL (0.0-0.1); Basophils Percent Auto 0.8 % (0.2-2.0); Eosinophils Absolute Auto 0.1 10^3/uL (0.0-0.7); Eosinophils Percent Auto 1.6 % (0.9-7.0); Hematocrit 49.2 % (36.0-48.0); Hemoglobin 15.7 g/dL (12.0-16.0); Immature Granulocytes Abs Auto 0.02 10^3/uL (0.00-0.03); Immature Granulocytes Pct Auto 0.3 % (0.0-0.5); Lymphocytes Absolute Auto 1.9 10^3/uL (1.2-3.8); Lymphocytes Percent Auto 25.7 % (20.5-60.0); Mean Corpuscular HGB Conc 31.9 g/dL (29.9-35.2); Mean Corpuscular Hemoglobin 30.2 pg (26.7-34.0); Mean Corpuscular Volume 94.6 fL (81.0-99.0); Mean Platelet Volume 9.9 fL (9.5-13.5); Monocytes Absolute Auto 0.6 10^3/uL (0.3-0.8); Monocytes Percent Auto 7.7 % (1.7-12.0); Neutrophils Absolute Auto 4.7 10^3/uL (1.4-6.5); Neutrophils Percent Auto 63.9 % (43.0-75.0); Platelet Count 271 10^3/uL (150-450); Red Cell Distribution Width 12.8 % (11.0-15.0); White Blood Count 7.3 10^3/uL (4.0-11.0)
[2023-04-24 06:59] LABS: Bilirubin Urine NEGATIVE (NEGATIVE); Blood Urine NEGATIVE (NEGATIVE); Clarity Urine CLEAR (CLEAR); Color Urine LT. YELLOW (YELLOW); Glucose Urine UA NEGATIVE (NEGATIVE); Ketones Urine NEGATIVE (NEGATIVE); Leukocyte Esterase Urine TRACE (NEGATIVE); Nitrite Urine NEGATIVE (NEGATIVE); Protein Urine NEGATIVE (NEG/TRACE); Urobilinogen Urine 0.2 EU/dL (0.2-1.0); pH Urine 5.5 (5.0-9.0)
[2023-04-24 07:02] LABS: Urine Microscopic Indicated YES
[2023-04-24 07:18] LABS: Creatinine Urine Random 90.36 mg/dL (20.00-300.00); Microalbum Creatinine Ratio Ur 14.3 mg/g (0.0-29.9); Microalbumin Urine Random <1.3 mg/dL (<=30.0)
[2023-04-24 07:20] LABS: Estimated Average Glucose 117 mg/dL; Glycohemoglobin A1C 5.7 % (4.5-6.2)
[2023-04-24 07:26] LABS: Alanine Aminotransferase 23 U/L (14-59); Albumin Level 3.9 g/dL (3.4-5.0); Alkaline Phosphatase 96 U/L (46-116); Anion Gap 13.4; Aspartate Amino Transferase 18 U/L (15-37); BUN Creatinine Ratio 16.4; Bilirubin Total 0.8 mg/dL (0.2-1.0); Calcium 9.3 mg/dL (8.5-10.1); Carbon Dioxide 29.5 mmol/L (21.0-32.0); Chloride 100 mmol/L (98-107); Chol HDL Ratio 2.7; Cholesterol 134 mg/dL (<=200); Estimated GFR (African America 49 (>=60); Estimated GFR (Non-African Ame 41 (>=60); Globulin 3.9 g/dL; Glucose 99 mg/dL (74-106); HDL Cholesterol 49 mg/dL (40-60); Potassium 3.9 mmol/L (3.5-5.1); Sodium 139 mmol/L (136-145); Total Protein 7.8 g/dL (6.4-8.2); Triglycerides 100 mg/dL (<=150); Uric Acid 5.6 mg/dL (2.6-6.0)
[2023-04-24 07:40] LABS: Bacteria Urine TRACE #/HPF (NONE SEEN); Cast Seen? NONE SEEN #/LPF (NONE SEEN); Crystals Seen? None Seen #/HPF (None Seen); Mucus Urine NONE SEEN (NONE SEEN); RBC Urine NONE SEEN #/HPF (0-2); Squamous Epithelial Cell Urine RARE #/LPF (NONE/RARE); WBC Urine 0-2 #/HPF (NONE SEEN)
== END 2023-04-24 06:34 | disposition home or self-care (01) ==
LOC: LAB 06:35
PROVIDERS: PCP Nurse Practitioner; Visit Provider Nurse Practitioner
DX: E78.2 Mixed hyperlipidemia (principal); E11.9 Type 2 diabetes mellitus without complications; I10 Essential (primary) hypertension; M10.9 Gout, unspecified
CPT/HCPCS: 36415; 80053; 80061; 81001; 82043; 82570; 83036; 84550; 85025

== ENCOUNTER 2023-10-25 07:49 | Outpatient (OUT) | payer MEDICARE, SELFPAY ==
--- OUTSIDE RECORDS SUMMARY | 2023-10-25 08:08 | XMS_ITS | CCD ---
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 Name Role Phone PUMA, DR CHAVEZ Admitting [...] Unavailable HOUSE, DR CROCKETT Admitting Unavailable Ildahjann DEICER KIT ASSEMBLER-RYAN, Lali Edgar Primary Care Provider Rani INFLATED PAD BUFFER, Lali Unavailable Arsh Dunham MD Primary Care Provider LALI SARAVIA Attending Unavailable LALI SARAVIA Attending Unavailable LALI SARAVIA Attending Unavailable BON MUÑOZ Referring Unavailable RANI LALI J Primary Care Unavailable RAJWINDER ALEXANDER Attending Unavailable BON MUÑOZ Referring Unavailable LALI SARAVIA Primary Care Unavailable RANI, LALI J Referring Unavailable AICHHOLZ, LALI J Primary Care Unavailable AICHHOLZ, LALI J Referring Unavailable AICHHOLZ, LALI J Primary Care Unavailable Allergies Allergy Classification Reported Allergen(s) Allergy Type Date of Onset Reaction(s) Facility (1 source) Acetaminophen / HYDROcodone Drug Allergy 07-11-19 13 [facility] (1 source) Acetaminophen / oxyCODONE Drug Allergy 07-11-19 13 [facility] (1 source) Sulfonamides (Antibiotic) Drug allergy (disorder) 07-11-19 13 [facility] (2 sources) Acetaminophen / HYDROcodone; Translations: [HYDROCODONE-AIDE TAMINOPHEN] Drug Allergy 07-09-19 Hallucinations [facility] (2 sources) Acetaminophen / oxyCODONE; Translations: [OXYCODONE-ACETA MINOPHEN] Drug Allergy 06-25-19 Hallucinations, Vomiting [facility] (3 sources) Sulfonamides (Antibiotic); Translations: [SULFA (SULFONAMIDE ANTIBIOTICS)] Propensity to adverse reactions to drug 10-11-19 Hives, Vomiting [facility] (1 source) HYDROcodone Drug Allergy 01-18-20 Hallucinations [facility] (1 source) oxyCODONE Drug Allergy 01-18-20 Hallucinations [facility] (1 source) traMADol Drug Allergy 01-18-20 Hallucinations [facility] Medications Current Medications Medication Drug Class(es) Dates Sig (Normalized) Sig (Original) [id number] 200 actuat albuterol 0.09 mg/actuat metered dose [...] once busPIRone (Buspar) 10 MG tablet Indications: NTIO (generalized anxiety disorder) (CMS/HCC) Take 1 tablet [...] mg total) before bedtime. 0 07/10/2019 Active Uewwsubvqia-Wowfjmaiv-Etmivy (Trelegy Ellipta) 200-62.5-25 MCG/ACT aerosol powder (1 source) Start: 01-24-2023 take 1 puff(s) by mouth in the morning Bacsuyvjxlb-Acesnphis-Dsurup (Trelegy Ellipta) 200-62.5-25 MCG/ACT aerosol powder Indications: [...] bronchitis] Onset: 2 01-22-2023 Chronic Conduction disorders (6 sources) Presence of cardiac pacemaker; Translations: [Atrioventricular [...] disease] Onset: 3 01-17-2023 Chronic Essential hypertension (5 sources) Essential (primary) hypertension; Translations: [Essential hypertension] [...] 3 01-22-2023 Chronic Other aftercare (1 source) assisted (current) use of oral hypoglycemic drugs; Translations: [SNF USE ORAL HYPOGLYCEMIC DX] Onset: 2 Episodic Other aftercare (1 source) Other mcfp (current) drug therapy; Translations: [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 THERAPY] Onset: 2 Episodic Other and ill-defined heart disease (1 source) Heart disease; Translations: [Heart disease, unspecified] Onset: 3 01-22-2023 Chronic Other connective tissue disease (3 sources) [...] overweight; Translations: [Overweight] Onset: 3 01-22-2023 Episodic Other screening for suspected conditions (not mental disorders or infectious disease) (1 source) Encounter for screening mammogram for malignant neoplasm of breast; Translations: [Encounter for screening mammogram for malignant neoplasm of breast] Onset: 4 Episodic Peripheral and visceral atherosclerosis (1 source) Peripheral vascular disease, unspecified; Translations: [Peripheral vascular disease, unspecified] Onset: 3 01-22-2023 Chronic Residual codes; unclassified (1 source) Asymptomatic menopausal state; Translations: [Asymptomatic menopausal state] Onset: 4 Episodic Screening and history of mental health and substance abuse codes (2 sources) Personal history of nicotine dependence; Translations: [Patient encounter status] Onset: 2 01-22-2023 Episodic Unclassified (1 source) CHRN KIDNEY DISEASE STG 3 UNSP; Translations: [CHRN KIDNEY DISEASE STG 3 UNSP] Onset: 1 Unclassified (1 source) CONTACT W/AND (SUSP) EXPOS COVID-19; Translations: [CONTACT W/AND (SUSP) EXPOS COVID-19] Onset: 1 Unclassified (1 source) Other ventricular tachycardia; Translations: [Other ventricular tachycardia] Onset: 3 Unclassified (1 source) Device Check Onset: 3 Past or Other Problems Problem Classification Problem [...] NONSPECIFIC SKIN ERUPTION] Onset: 05-23-2020 Episodic Syncope (2 sources) Syncope; Translations: [Syncope and collapse] Onset: 06-25-2019 02-15-2022 Episodic Results Test Name Value Interpretation Reference Range Facility DEXA SCAN CENTRAL SKELETALon 04-27-2023 DEXA SCAN CENTRAL SKELETAL DEXA SCAN CENTRAL SKELETAL CLINICAL INFORMATION: Postmenopausal. TECHNIQUE: Dual X-ray Absorptiometry (DXA) was performed. COMPARISON: No relevant prior studies available. FINDINGS: LUMBAR SPINE (L1-L4): BMD is 0.896 gm/cm2. T-score is -2.4. LEFT FEMORAL NECK: BMD is 0.623 gm/cm2. T-score is -3.0. LEFT TOTAL FEMUR: BMD is 0.660 gm/cm2. T-score is -2.8. RIGHT FEMORAL NECK: BMD is 0.628 gm/cm2. T-score is -2.9. RIGHT TOTAL FEMUR: BMD is 0.699 gm/cm2. T-score is -2.4. The estimated 10-year probability for a major osteoporotic fracture (utilizing FRAX) is 22.9% and for a hip fracture is 9.1%. IMPRESSION: The exam is considered to be osteoporotic by the National Osteoporosis Foundation guidelines. Recommend consideration for initiation of therapy. WHO CLASSIFICATION: Normal: T-score -1.0 or above Osteopenia: T-score -1.1 to < 2.5 Osteoporosis: T-score -2.5 or lower Secondary causes of bone loss should be evaluated if clinically indicated since the etiology of low BMD cannot be determined by BMD measurement alone. The current National Osteoporosis Foundation guide recommends treating patients with FRAX ten year risk scores of greater than or equal to 3% for hip fracture or greater than or equal to 20% for major osteoporotic fracture, to reduce their fracture risk. Finalized by Donald Burris MD on 04/27/2023 11:44 AM Normal [facility] MAMM SCREENING BILATERAL W C representative 04-27-2023 MAMM SCREENING BILATERAL W CAD MAMM SCREENING BILATERAL W CAD EXAM: MAMM SCREENING BILATERAL W CAD, 04/27/2023 8:44 AM CLINICAL INDICATIONS: Screening, Visit for screening mammogram. COMPARISON: Multiple prior mammograms dating back to 03/19/2019 TECHNIQUE: Bilateral digital tomosynthesis MLO and CC views of the breasts were obtained, with creation of synthetic 2D views. Computer aided detection was utilized. FINDINGS: There are scattered areas of fibroglandular density. There are no suspicious masses, calcifications, or areas of architectural distortions. IMPRESSION: No mammographic evidence of malignancy. BI-RADS: BI-RADS 1 - Negative Recommendation: Routine screening mammogram in 1 year. Finalized by Piedad Garibay MD on 04/27/2023 9:59 AM 1 b MAMM 1 YR Normal [facility] URIC ACID SERUMon 04-27-2021 Urate [Mass/Vol] 7.6 mg/dL Critically high 2.5-6.2 [facility] Comment on above: Performed By: #### U LUC #### [facility] [address] [place] [address] Dr. Vicki Dempsey CBC AUTO DIFFon 02-24-2021 BASO # 0.1 103/ul Normal 0.0-0.1 [facility] Comment on above: Performed By: #### C BC #### [facility] [address] [place] [address] Dr. Vicki Dempsey Basophils/100 WBC (Bld) 1.0 % Normal 0.2-2.0 [facility] Comment on above: Performed By: #### C BC #### [facility] [address] [place] [address] Dr. Vicki Dempsey EO # 0.2 103/ul Normal 0.0-0.7 [facility] Comment on above: Performed By: #### C BC #### [facility] [address] [place] [address] Dr. Vicki Dempsey Eosinophils/100 WBC (Bld) 2.7 % Normal 0.9-7.0 [facility] Comment on above: Performed By: #### C BC #### [facility] [address] [place] [address] Dr. Vicki Dempsey Erythrocyte distribution width (RBC) [Ratio] 12.7 % Normal 11.0-15.0 [facility] Comment on above: Performed By: #### C BC #### [facility] [address] [place] [address] Dr. Vicki Dempsey Hematocrit (Bld) [Volume fraction] 51.0 % Critically high 36.0-48.0 [facility] Comment on above: Performed By: #### C BC #### [facility] [address] [place] [address] Dr. Vicki Dempsey Hemoglobin (Bld) [Mass/Vol] 16.6 g/dL Critically high 12.0-16.0 [facility] Comment on above: Performed By: #### C BC #### [facility] [address] [place] [address] Dr. Vicki Dempsey IG # 0.02 10e3/ul Normal 0.00-0.03 [facility] Comment on above: Performed By: #### C BC #### [facility] [address] [place] [address] Dr. Vicki Dempsey IG % 0.3 % Normal 0.0-0.5 [facility] Comment on above: Performed By: #### C BC #### [facility] [address] [place] [address] Dr. Vicki Dempsey LYMPH # 2.3 103/ul Normal 1.2-3.8 [facility] Comment on above: Performed By: #### C BC #### [facility] [address] [place] [address] Dr. Vicki Dempsey Lymphocytes/100 WBC (Bld) 31.1 % Normal 20.5-60.0 [facility] Comment on above: Performed By: #### C BC #### [facility] [address] [place] [address] Dr. Vicki Dempsey MANUAL DIFF REQ NO Normal [facility] Comment on above: Performed By: #### C BC #### [facility] [address] [place] [address] Dr. Vicki Dempsey MCH (RBC) [Entitic mass] 29.0 pg Normal 26.7-34.0 [facility] Comment on above: Performed By: #### C BC #### [facility] [address] [place] [address] Dr. Vicki Dempsey MCHC (RBC) [Mass/Vol] 32.5 g/dL Normal 29.9-35.2 [facility] Comment on above: Performed By: #### C BC #### [facility] [address] [place] [address] Dr. Vicki Dempsey MCV (RBC) [Entitic vol] 89.0 fL Normal 81.0-99.0 [facility] Comment on above: Performed By: #### C BC #### [facility] [address] [place] [address] Dr. Vicki Dempsey MONO # 0.6 103/ul Normal 0.3-0.8 [facility] Comment on above: Performed By: #### C BC #### [facility] [address] [place] [address] Dr. Vicki Dempsey Monocytes/100 WBC (Bld) 8.7 % Normal 1.7-12.0 [facility] Comment on above: Performed By: #### C BC #### [facility] [address] [place] [address] Dr. Vicki Dempsey NEUT # 4.1 103/ul Normal 1.4-6.5 [facility] Comment on above: Performed By: #### C BC #### [facility] [address] [place] [address] Dr. Vicki Dempsey Neutrophils/100 WBC (Bld) 56.2 % Normal 43.0-75.0 [facility] Comment on above: Performed By: #### C BC #### [facility] [address] [place] [address] Dr. Vicki Dempsey Platelet mean volume (Bld) [Entitic vol] 9.6 fL Normal 9.5-13.5 [facility] Comment on above: Performed By: #### C BC #### [facility] [address] [place] [address] Dr. Vicki Dempsey PLT 298 103/ul Normal 150-450 [facility] Comment on above: Performed By: #### C BC #### [facility] [address] [place] [address] Dr. Vicki Dempsey RBC 5.73 106/ul Critically high 4.20-5.40 [facility] Comment on above: Performed By: #### C BC #### [facility] [address] [place] [address] Dr. Vicki Dempsey WBC 7.3 103/ul Normal 4.0-11.0 [facility] Comment on above: Performed By: #### C BC #### [facility] [address] [place] [address] Dr. Vicki Dempsey GLYCOHEMOGLOBIN A1Con 2021 ADA RECOMMENDATION ADA THERAPEUTIC TARGET 6.0 - 7.0 ACTION SUGGESTED > 7.0 Normal [facility] Comment on above: Performed By: #### A 1C #### [facility] [address] [place] [address] Dr. Vicki Dempsey Glucose [Mass/Vol] 128 mg/dL Normal [facility] Comment on above: Performed By: #### A 1C #### [facility] [address] [place] [address] Dr. Vicki Dempsey HbA1c (Bld) [Mass fraction] 6.1 % Critically high <=6.0 [facility] Comment on above: Performed By: #### A 1C #### [facility] [address] [place] [address] Dr. Vicki Dempsey MICROALBUMIN, RAND URon 02-12 mALB 2.1 mg/L Normal <=30.0 [facility] Comment on above: Performed By: #### U LUC #### [facility] [address] [place] [address] Dr. Vicki Dempsey PROF 14(COMP METB)on 022 Albumin [Mass/Vol] 4.0 g/dL Normal 3.5-5.0 [facility] Comment on above: Performed By: #### C MP #### [facility] [address] [place] [address] Dr. Vicki Dempsey Albumin/Globulin [Mass ratio] 1.0 {ratio} Normal [facility] Comment on above: Performed By: #### C MP #### [facility] [address] [place] [address] Dr. Vicki Dempsey ALP [Catalytic activity/Vol] 104 U/L Normal 38-126 [facility] Comment on above: Performed By: #### C MP #### [facility] [address] [place] [address] Dr. Vicki Dempsey ALT [Catalytic activity/Vol] 30 U/L Normal 9-52 [facility] Comment on above: Performed By: #### C MP #### [facility] [address] [place] [address] Dr. Vicki Dempsey Anion gap [Moles/Vol] 11.2 mmol/L Normal [facility] Comment on above: Performed By: #### C MP #### [facility] [address] [place] [address] Dr. Vicki Dempsey AST [Catalytic activity/Vol] 19 U/L Normal 14-36 [facility] Comment on above: Performed By: #### C MP #### [facility] [address] [place] [address] Dr. Vicki Dempsey Bilirubin [Mass/Vol] 0.5 mg/dL Normal 0.2-1.3 [facility] Comment on above: Performed By: #### C MP #### [facility] [address] [address] [address] Vicki Dempsey Calcium [Mass/Vol] 9.6 mg/dL Normal 8.4-10.2 [facility] Comment on above: Performed By: #### C MP #### [facility] [address] [address] [address] Vicki Dempsey Chloride [Moles/Vol] 99 mmol/L Normal 98-107 [facility] Comment on above: Performed By: #### C MP #### [facility] [address] [address] [address] Vicki Dempsey CO2 [Moles/Vol] 32.1 mmol/L Critically high 22.0-30.0 [facility] Comment on above: Performed By: #### C MP #### [facility] [address] [address] [address] Vicki Dempsey Creatinine [Mass/Vol] 1.07 mg/dL Critically high 0.52-1.04 [facility] Comment on above: Performed By: #### C MP #### [facility] [address] [address] [address] Vicki Dempsey EGFR-AF CZECH >60 Normal >=60 [facility] Comment on above: Performed By: #### C MP #### [facility] [address] [address] [address] Vicki Dempsey EGFR-NON AF CZECH 50 mL/min/1.73m2 Critically low >=60 [facility] Comment on above: Performed By: #### C MP #### [facility] [address] [address] [address] Vicki Dempsey Globulin (S) [Mass/Vol] 3.9 g/dL Normal [facility] Comment on above: Performed By: #### C MP #### [facility] [address] [address] [address] Vicki Dempsey Glucose [Mass/Vol] 100 mg/dL Normal 74-106 [facility] Comment on above: Performed By: #### C MP #### [facility] [address] [address] [address] Vicki Dempsey Potassium [Moles/Vol] 3.3 mmol/L Critically low 3.4-5.0 [facility] Comment on above: Performed By: #### C MP #### [facility] [address] [address] [address] Vicki Dempsey Protein [Mass/Vol] 7.9 g/dL Normal 6.1-8.2 [facility] Comment on above: Performed By: #### C MP #### [facility] [address] [address] [address] Vicki Dempsey Sodium [Moles/Vol] 139 mmol/L Normal 137-145 [facility] Comment on above: Performed By: #### C MP #### [facility] [address] [place] [address] Dr. Vicki Dempsey Urea nitrogen [Mass/Vol] 13.0 mg/dL Normal 7.0-17.0 [facility] Comment on above: Performed By: #### C MP #### [facility] [address] [place] [address] Dr. Vicki Dempsey Urea nitrogen/Creatinine [Mass ratio] 12.1 mg/mg Normal [facility] Comment on above: Performed By: #### C MP #### [facility] [address] [address] [address] Vicki Dempsey PROF 14(COMP METB)on 021 Albumin [Mass/Vol] 3.8 g/dL Normal 3.5-5.0 [facility] Comment on above: Performed By: #### U LUC #### [facility] [address] [address] [address] Vicki Dempsey Albumin/Globulin [Mass ratio] 0.9 {ratio} Normal [facility] Comment on above: Performed By: #### U LUC #### [facility] [address] [address] [address] Vicki Dempsey ALP [Catalytic activity/Vol] 82 U/L Normal 38-126 [facility] Comment on above: Performed By: #### U LUC #### [facility] [address] [address] [address] Vicki Dempsey ALT [Catalytic activity/Vol] 21 U/L Normal 9-52 [facility] Comment on above: Performed By: #### U LUC #### [facility] [address] [address] [address] Vicki Dempsey Anion gap [Moles/Vol] 9.1 mmol/L Normal [facility] Comment on above: Performed By: #### U LUC #### [facility] [address] [address] [address] Vicki Dempsey AST [Catalytic activity/Vol] 16 U/L Normal 14-36 [facility] Comment on above: Performed By: #### U LUC #### [facility] [address] [place] [address] Dr. Vicki Dempsey Bilirubin [Mass/Vol] 0.7 mg/dL Normal 0.2-1.3 [facility] Comment on above: Performed By: #### U LUC #### [facility] [address] [place] [address] Dr. Vicki Dempsey Calcium [Mass/Vol] 9.6 mg/dL Normal 8.4-10.2 [facility] Comment on above: Performed By: #### U LUC #### [facility] [address] [place] [address] Dr. Vicki Dempsey Chloride [Moles/Vol] 99 mmol/L Normal 98-107 [facility] Comment on above: Performed By: #### U LUC #### [facility] [address] [address] [address] Vicki Dempsey CO2 [Moles/Vol] 33.5 mmol/L Critically high 22.0-30.0 [facility] Comment on above: Performed By: #### U LUC #### [facility] [address] [place] [address] Dr. Vicki Dempsey Creatinine [Mass/Vol] 1.04 mg/dL Normal 0.52-1.04 [facility] Comment on above: Performed By: #### U LUC #### [facility] [address] [address] [address] Vicki Dempsey EGFR-AF CZECH >60 Normal >=60 [facility] Comment on above: Performed By: #### U LUC #### [facility] [address] [address] [address] Vicki Dempsey EGFR-NON AF CZECH 52 mL/min/1.73m2 Critically low >=60 [facility] Comment on above: Performed By: #### U LUC #### [facility] [address] [address] [address] Vicki Dempsey Globulin (S) [Mass/Vol] 4.0 g/dL Normal [facility] Comment on above: Performed By: #### U LUC #### [facility] [address] [address] [address] Vicki Dempsey Glucose [Mass/Vol] 110 mg/dL Critically high 74-106 [facility] Comment on above: Performed By: #### U LUC #### [facility] [address] [address] [address] Vicki Dempsey Potassium [Moles/Vol] 3.6 mmol/L Normal 3.4-5.0 [facility] Comment on above: Performed By: #### U LUC #### [facility] [address] [address] [address] Vicki Dempsey Protein [Mass/Vol] 7.8 g/dL Normal 6.1-8.2 [facility] Comment on above: Performed By: #### U LUC #### [facility] [address] [address] [address] Vicki Dempsey Sodium [Moles/Vol] 138 mmol/L Normal 137-145 [facility] Comment on above: Performed By: #### U LUC #### [facility] [address] [address] [address] Vicki Dempsey Urea nitrogen [Mass/Vol] 21.0 mg/dL Critically high 7.0-17.0 [facility] Comment on above: Performed By: #### U LUC #### [facility] [address] [address] [address] Vicki Dempsey Urea nitrogen/Creatinine [Mass ratio] 20.2 mg/mg Normal [facility] Comment on above: Performed By: #### U LUC #### [facility] [address] [place] [address] Dr. Vicki Dempsey CBC AUTO DIFFon 06-07-2020 BASO # 0.1 103/ul Normal 0.0-0.1 [facility] Comment on above: Performed By: #### C BC #### [facility] [address] [place] [address] Joanne Jewels Basophils/100 WBC (Bld) 1.0 % Normal 0.2-2.0 [facility] Comment on above: Performed By: #### C BC #### [facility] [address] [place] [address] Joanne Jewels EO # 0.2 103/ul Normal 0.0-0.7 [facility] Comment on above: Performed By: #### C BC #### [facility] [address] [place] [address] Joanne Jewels Eosinophils/100 WBC (Bld) 3.2 % Normal 0.9-7.0 [facility] Comment on above: Performed By: #### C BC #### [facility] [address] [place] [address] Joanne Jewels Erythrocyte distribution width (RBC) [Ratio] 12.7 % Normal 11.0-15.0 [facility] Comment on above: Performed By: #### C BC #### [facility] [address] [place] [address] Joanne Jewels Hematocrit (Bld) [Volume fraction] 47.8 % Normal 36.0-48.0 [facility] Comment on above: Performed By: #### C BC #### [facility] [address] [place], [place] [id number] Joanne Jewels Hemoglobin (Bld) [Mass/Vol] 15.5 g/dL Normal 12.0-16.0 [facility] Comment on above: Performed By: #### C BC #### [facility] [address] [place] [address] Joanne Jewels IG # 0.02 10e3/ul Normal 0.00-0.03 [facility] Comment on above: Performed By: #### C BC #### [facility] [address] [place] [address] Joannejared Donis IG % 0.3 % Normal 0.0-0.5 [facility] Comment on above: Performed By: #### C BC #### [facility] [address] [place] [address] Joannejared Donis LYMPH # 2.1 103/ul Normal 1.2-3.8 [facility] Comment on above: Performed By: #### C BC #### [facility] [address] [place] [address] Joanne Donis Lymphocytes/100 WBC (Bld) 34.8 % Normal 20.5-60.0 [facility] Comment on above: Performed By: #### C BC #### [facility] [address] [place] [address] Joanne Donis MANUAL DIFF REQ NO Normal [facility] Comment on above: Performed By: #### C BC #### [facility] [address] [place] [address] Joanne Donis MCH (RBC) [Entitic mass] 28.5 pg Normal 26.7-34.0 [facility] Comment on above: Performed By: #### C BC #### [facility] [address] [place] [address] Joanne Donis MCHC (RBC) [Mass/Vol] 32.4 g/dL Normal 29.9-35.2 [facility] Comment on above: Performed By: #### C BC #### [facility] Laboratory [address] [place] [address] Joanne Donis MCV (RBC) [Entitic vol] 87.9 fL Normal 81.0-99.0 [facility] Comment on above: Performed By: #### C BC #### [facility] [address] [place] [address] Joanne Jewels MONO # 0.7 103/ul Normal 0.3-0.8 [facility] Comment on above: Performed By: #### C BC #### [facility] [address] [place], [place] [address] Joanne Donis Monocytes/100 WBC (Bld) 11.1 % Normal 1.7-12.0 [facility] Comment on above: Performed By: #### C BC #### [facility] [address] [place], [place] [address] Joanne Donis NEUT # 3.0 103/ul Normal 1.4-6.5 [facility] Comment on above: Performed By: #### C BC #### [facility] [address] [place], [place] [address] Joanne Donis Neutrophils/100 WBC (Bld) 49.6 % Normal 43.0-75.0 [facility] Comment on above: Performed By: #### C BC #### [facility] [address] [place] [address] Joanne Donis Platelet mean volume (Bld) [Entitic vol] 9.9 fL Normal 9.5-13.5 [facility] Comment on above: Performed By: #### C BC #### [facility] [address] [place], [place] [address] Joanne Donis PLT 248 103/ul Normal 150-450 [facility] Comment on above: Performed By: #### C BC #### [facility] [address] [place] [address] Joanne Donis RBC 5.44 106/ul Critically high 4.20-5.[address] [facility] Comment on above: Performed By: #### C BC #### [facility] [address] [place] [address] Joanne Donis WBC 6.0 103/ul Normal 4.0-11.0 [facility] Comment on above: Performed By: #### C BC #### [facility] [address] [place] [address] Joanne Donis ECHO LIMITED STUDYon --2 021 ECHO LIMITED STUDY Patient: JEWELS MARQUEZ Exam Date: 06/07/2020 : 1945 Gender:F Ordering : DR. BHAVNA RUANO . Admission #: [id number] Family : KALLI BONY Mera Order #: [id number] CLICK HERE TO VIEW EXAM ECHOCARDIOGRAM REPORT [...] Area(A4C): 16.30 cm2 Left Atrium Systolic Volume(A2C): 03978 mm3 Left Atrium Systolic Volume(A4C): 87374 mm3 Mitral Valve Right Ventricle Aorta AO Root Diam: 3.00 cm Aortic Valve Tricuspid Valve Pulmonic Valve Right Atrium Dictated by: Lj Bradley M.D. on 06/07/2020 at 17:50 Approved by: Lj Bradley M.D. on 06/07/2020 at 17:52 Normal [facility] POINT OF CARE GLUCOSEon 04-2 Glucose [Mass/Vol] 101 mg/dL Normal 74-106 [facility] Comment on above: Performed By: #### U LUC #### [facility] [address] [place] [address] [address] Vicki Dempsey PROF CHEM 8 (BAS METB)on Anion gap [Moles/Vol] 7.4 mmol/L Normal [facility] Comment on above: Performed By: #### B MP #### [facility] [address] [place] [address] Joanne Jewels Calcium [Mass/Vol] 9.3 mg/dL Normal 8.4-10.2 [facility] Comment on above: Performed By: #### B MP #### [facility] [address] [place] [address] Joanne Jewels Chloride [Moles/Vol] 105 mmol/L Normal 98-107 [facility] Comment on above: Performed By: #### B MP #### [facility] [address] [place] [address] Joanne Jewels CO2 [Moles/Vol] 31.7 mmol/L Critically high 22.0-30.0 [facility] Comment on above: Performed By: #### B MP #### [facility] [address] [place] [address] Joanne Jewels Creatinine [Mass/Vol] 1.08 mg/dL Critically high 0.52-1.04 [facility] Comment on above: Performed By: #### B MP #### [facility] [address] [place] [address] Joanne Jewels EGFR-AF CZECH =60 Normal >=[address] [facility] Comment on above: Performed By: #### B MP #### [facility] [address] [address] Joanne Jewels EGFR-NON AF CZECH 50 mL/min/1.73m2 Critically low >=60 [facility] Comment on above: Performed By: #### B MP #### [facility] [address] [place] [address] Joanne Jewels Glucose [Mass/Vol] 111 mg/dL Critically high 74-106 [facility] Comment on above: Performed By: #### B MP #### [facility] [address] [place] [address] Joanne Jewels Potassium [Moles/Vol] 3.1 mmol/L Critically low 3.4-5.0 [facility] Comment on above: Performed By: #### B MP #### [facility] [address] [place] [address] Joanne Jewels Sodium [Moles/Vol] 141 mmol/L Normal 137-145 [facility] Comment on above: Performed By: #### B MP #### [facility] [address] [place] [address] Joanne Jewels Urea nitrogen [Mass/Vol] 20.0 mg/dL Critically high 7.0-17.0 [facility] Comment on above: Performed By: #### B MP #### [facility] [address] [place] [address] Joanne Jewels Urea nitrogen/Creatinine [Mass ratio] 18.5 mg/mg Normal [facility] Comment on above: Performed By: #### B MP #### [facility] [address] [place] [address] Joanne Jewels CBC AUTO DIFFon 06-06-2020 BASO # 0.1 103/ul Normal 0.0-0.1 [facility] Comment on above: Performed By: #### U LUC #### [facility] [address] [place] [address] Dr. Vicki Dempsey Basophils/100 WBC (Bld) 0.9 % Normal 0.2-2.0 [facility] Comment on above: Performed By: #### U LUC #### [facility] [address] [place] [address] Dr. Vicki Dempsey EO # 0.1 103/ul Normal 0.0-0.7 [facility] Comment on above: Performed By: #### U LUC #### [facility] [address] [place] [address] Dr. Vicki Dempsey Eosinophils/100 WBC (Bld) 1.9 % Normal 0.9-7.0 [facility] Comment on above: Performed By: #### U LUC #### [facility] [address] [place] [address] Dr. Vicki Dempsey Erythrocyte distribution width (RBC) [Ratio] 12.6 % Normal 11.0-15.0 [facility] Comment on above: Performed By: #### U LUC #### [facility] [address] [place] [address] Dr. Vicki Dempsey Hematocrit (Bld) [Volume fraction] 51.7 % Critically high 36.0-48.0 [facility] Comment on above: Performed By: #### U LUC #### [facility] [address] [place] [address] Dr. Vicki Dempsey Hemoglobin (Bld) [Mass/Vol] 17.6 g/dL Critically high 12.0-16.0 [facility] Comment on above: Performed By: #### U LUC #### [facility] [address] [place] [address] Dr. Vicki Dempsey IG # 0.02 10e3/ul Normal 0.00-0.03 [facility] Comment on above: Performed By: #### U LUC #### [facility] [address] [place] [address] Dr. Vicki Dempsey IG % 0.3 % Normal 0.0-0.5 [facility] Comment on above: Performed By: #### U LUC #### [facility] [address] [place] [address] Dr. Vicki Dempsey LYMPH # 1.8 103/ul Normal 1.2-3.8 [facility] Comment on above: Performed By: #### U LUC #### [facility] [address] [place] [address] Dr. Vicki Dempsey Lymphocytes/100 WBC (Bld) 23.8 % Normal 20.5-60.0 [facility] Comment on above: Performed By: #### U LUC #### [facility] [address] [place] [address] Dr. Vicki Dempsey MANUAL DIFF REQ NO Normal [facility] Comment on above: Performed By: #### U LUC #### [facility] [address] [place] [address] Dr. Vicki Dempsey MCH (RBC) [Entitic mass] 29.1 pg Normal 26.7-34.0 [facility] Comment on above: Performed By: #### U LUC #### [facility] [address] [place] [address] Dr. Vicki Dempsey MCHC (RBC) [Mass/Vol] 34.0 g/dL Normal 29.9-35.2 [facility] Comment on above: Performed By: #### U LUC #### [facility] [address] [place] [address] Dr. Vicki Dempsey MCV (RBC) [Entitic vol] 85.5 fL Normal 81.0-99.0 [facility] Comment on above: Performed By: #### U LUC #### [facility] [address] [place] [address] Dr. Vicki Dempsey MONO # 0.7 103/ul Normal 0.3-0.8 [facility] Comment on above: Performed By: #### U LUC #### [facility] [address] [place] [address] Dr. Vicki Dempsey Monocytes/100 WBC (Bld) 9.4 % Normal 1.7-12.0 [facility] Comment on above: Performed By: #### U LUC #### [facility] [address] [place] [address] Dr. Vicki Dempsey NEUT # 4.8 103/ul Normal 1.4-6.5 [facility] Comment on above: Performed By: #### U LUC #### [facility] [address] [place] [address] Dr. Vicki Dempsey Neutrophils/100 WBC (Bld) 63.7 % Normal 43.0-75.0 [facility] Comment on above: Performed By: #### U LUC #### [facility] [address] [place] [address] Dr. Vicki Dempsey Platelet mean volume (Bld) [Entitic vol] 10.1 fL Normal 9.5-13.5 [facility] Comment on above: Performed By: #### U LUC #### [facility] [address] [place] [address] Dr. Vicki Dempsey PLT 309 103/ul Normal 150-450 [facility] Comment on above: Performed By: #### U LUC #### [facility] [address] [place] [address] Dr. Vicki Dempsey RBC 6.05 106/ul Critically high 4.20-5.40 [facility] Comment on above: Performed By: #### U LUC #### [facility] [address] [place] [address] Dr. Vicki Dempsey WBC 7.5 103/ul Normal 4.0-11.0 [facility] Comment on above: Performed By: #### U LUC #### [facility] [address] [place] [address] Dr. Vicki Dempsey POINT OF CARE GLUCOSEon 05-14 Glucose [Mass/Vol] 114 mg/dL Critically high 74-106 [facility] Comment on above: Performed By: #### U LUC #### [facility] [address] [place] [address] Dr. Vicki Dempsey PROF 14(COMP METB)on Albumin [Mass/Vol] 4.0 g/dL Normal 3.5-5.0 [facility] Comment on above: Performed By: #### H FELECIA, CMP #### [facility] [address] [place] [address] Joanne Jewels Albumin/Globulin [Mass ratio] 0.9 {ratio} Normal [facility] Comment on above: Performed By: #### H FELECIA, CMP #### [facility] [address] [place] [address] Joanne Jewels ALP [Catalytic activity/Vol] 91 U/L Normal 38-126 [facility] Comment on above: Performed By: #### H FELECIA, CMP #### [facility] [address] [place], [place] [address] Joanne Jewels ALT [Catalytic activity/Vol] 29 U/L Normal 9-52 [facility] Comment on above: Performed By: #### H FELECIA, CMP #### [facility] [address] [place], [place] [id number] Joanne Jewels Anion gap [Moles/Vol] 10.9 mmol/L Normal [facility] Comment on above: Performed By: #### H FELECIA, CMP #### [facility] [address] [place] [address] Joanne Jewels AST [Catalytic activity/Vol] 22 U/L Normal 14-36 [facility] Comment on above: Performed By: #### H FELECIA, CMP #### [facility] [address] [place] [address] Joanne Jewels Bilirubin [Mass/Vol] 0.8 mg/dL Normal 0.2-1.3 [facility] Comment on above: Performed By: #### H FELECIA, CMP #### [facility] [address] [place] [address] Joanne Jewels Calcium [Mass/Vol] 9.6 mg/dL Normal 8.4-10.2 [facility] Comment on above: Performed By: #### H FELECIA, CMP #### [facility] [address] [place] [address] Joanne Jewels Chloride [Moles/Vol] 98 mmol/L Normal 98-107 [facility] Comment on above: Performed By: #### H FELECIA, CMP #### [facility] [address] [place] [address] Joanne Jewels CO2 [Moles/Vol] 30.8 mmol/L Critically high 22.0-30.0 [facility] Comment on above: Performed By: #### H FELECIA, CMP #### [facility] [address] [place] [address] Joanne Jewels Creatinine [Mass/Vol] 1.20 mg/dL Critically high 0.52-1.04 [facility] Comment on above: Performed By: #### H FELECIA, CMP #### [facility] [address] [place] [address] Joanne Jewels EGFR-AF CZECH 53 mL/min/1.73m2 Critically low >=60 [facility] Comment on above: Performed By: #### H FELECIA, CMP #### [facility] [address] [place] [address] Joanne Jewels EGFR-NON AF CZECH 44 mL/min/1.73m2 Critically low >=60 [facility] Comment on above: Performed By: #### H FELECIA, CMP #### [facility] [address] [place] [address] Joanne Jewels Globulin (S) [Mass/Vol] 4.4 g/dL Normal [facility] Comment on above: Performed By: #### H FELECIA, CMP #### [facility] [address] [place] [address] Joanne Jewels Glucose [Mass/Vol] 124 mg/dL Critically high 74-106 [facility] Comment on above: Performed By: #### H FELECIA, CMP #### [facility] [address] [place] [address] Joanne Jewels Potassium [Moles/Vol] 2.7 mmol/L Critically low 3.4-5.0 [facility] Comment on above: Result Comment: Test repeated. Critical value verified. Performed By: #### H FELECIA, CMP #### [facility] [address] [place] [address] Joanne Jewels Protein [Mass/Vol] 8.4 g/dL Critically high 6.1-8.2 [facility] Comment on above: Performed By: #### H FELECIA, CMP #### [facility] [address] [place] [address] Joanne Jewels Sodium [Moles/Vol] 137 mmol/L Normal 137-145 [facility] Comment on above: Performed By: #### H FELECIA, CMP #### [facility] [address] [place] [address] Joanne Jewels Urea nitrogen [Mass/Vol] 18.0 mg/dL Critically high 7.0-17.0 [facility] Comment on above: Performed By: #### H FELECIA, CMP #### [facility] [address] [place] [address] Joanne Donis Urea nitrogen/Creatinine [Mass ratio] 15.0 mg/mg Normal [facility] Comment on above: Performed By: #### H FELECIA, CMP #### [facility] [address] [place] [address] Joanne Donis Rapid Covid-19 PCR (CVDRPD)o n 06-06-2020 SARS-CoV-2 (COVID-19) RNA TANMAY+probe Ql (Unsp spec) Not detected Normal NOT DETECTED [facility] Comment on above: Result Comment: This test is not yet approved or cleared by the [place] Food and Drug Administration (FDA). This test was developed by [employer], [place], [place]. The performance characteristics of this test were validated by [facility]. The results are not intended to be used as the sole means for clinical diagnosis or patient management decisions. [facility] is authorized under Clinical Laboratory Improvement Amendments (CLIA) to perform high- complexity testing. When diagnostic testing is negative, the possibility of a false negative should be considered in the context of a patient's recent exposures and the presence of clinical signs and symptoms consistent with SARS-CoV-2. Performed By: #### C VDRPD #### [facility] [address] [place] [address] Joanne Donis TROPONIN, HIGH SENSITIVITYon 06-06-2020 HSTROP 64.1 pg/mL Critically high 4.0-35.[address] [facility] Comment on above: Result Comment: CUT- OFF POINTS HAVE BEEN ESTABLISHED BASED ON THE FOURTH UNIVERSAL DEFINITIONS OF MYOCARDIAL INFARCTION. THE UPPER REFERENCE LIMIT (URL) OF TROPONIN, DEFINED THE 99TH PERCENTILE OF cTnI DISTRIBUTION IN A REFERENCE POPULATION, HAS BEEN CONFIRMED THE DECISION THRESHOLD FOR PR DIAGNOSIS. Test repeated. Critical value verified. Performed By: #### H SHARMAINEPN #### [facility] [address] [place] [address] Joanne Donis HSTROP 66.3 pg/mL Critically high 4.0-35.[address] [facility] Comment on above: Result Comment: CUT- OFF POINTS HAVE BEEN ESTABLISHED BASED ON THE FOURTH UNIVERSAL DEFINITIONS OF MYOCARDIAL INFARCTION. THE UPPER REFERENCE LIMIT (URL) OF TROPONIN, DEFINED THE 99TH PERCENTILE OF cTnI DISTRIBUTION IN A REFERENCE POPULATION, HAS BEEN CONFIRMED THE DECISION THRESHOLD FOR PR DIAGNOSIS. Test repeated. Critical value verified. Performed By: #### H FELECIA, CMP #### [facility] [address] [id number] Joanne Donis XR CHEST 1 Von 06-06-2020 [...] by: CAITLIN GUERRERO Date: 2020-06-06 14:01 Normal [facility] Encounters Encounter Date Encounter Type Care Provider Facility Start: 04-27-2023 End: 04-28-2023 ambulatory LALI SARAVIA [facility] Start: 04-23-2023 End: 04-23-2023 ambulatory LALI SARAVIA Not Available Start: 03-22-2023 Refill Lali Saravia [employer] Work Phone: [facility] Comment on above: Primary hypertension (CMS/HCC) (Primary Dx) Start: 02-21-2023 End: 02-21-2023 ambulatory LALI SARAVIA Not Available Start: 02-07-2023 End: 02-07-2023 ambulatory RAJWINDER ALEXANDER [facility] Start: 02-06-2023 Telephone encounter [facility]ll[facility] Start: 01-22-2023 End: 01-22-2023 ambulatory LALI SARAVIA Not Available Start: 04-27-2021 End: 04-27-2021 ambulatory DO HINES Facility:[facility] Start: 02-24-2021 End: 02-25-[address] BON MUÑOZ Facility:[facility] Start: 06-14-2020 End: 06-15-[address] BON MUÑOZ Facility:[facility] Start: 06-06-2020 End: 06-07-2020 ambulatory BHAVNA RUANO Facility:[facility] Start: 05-23-2020 End: 05-23-[address] KATHY BARTHOLOMEW Facility:[facility] Procedures Date Procedure Procedure Detail Performing Clinician Start: 02-07-2023 Follow-up visit Follow-up RAJWINDER Bergman BENJAMIN Start: 11-03-2021 Colonoscopy Lali Nury PEREZ Plan of Treatment Date Care Activity Detail Author Start: 11-03-2026 Screening for malignant neoplasm of colon Colonoscopy [facility] Start: 08-23-2023 Urine screening for protein Diabetes: Urine Protein Screening [facility] Start: 04-23-2023 End: 04-23-2023 Patient encounter procedure 04/23/2023 8:00 AM EDT [facility] [address] [place] [address] Lali Saravia, SRAVAN [address] [place] [address] [facility] Start: 03-10-2023 Adult BMI Screening Adult BMI Screening [facility] Start: 02-15-2023 Tobacco Screening Tobacco Screening [facility] Start: 02-07-2023 End: 02-07-2023 Clinical Support [facility] Start: 11-22-2022 Hemoglobin A1c measurement Diabetes: Hemoglobin A1C [facility] Start: 05-04-2011 Fall Risk Screening Fall Risk Screening [facility] Start: 1965 Administration of varicella zoster vaccine Zoster (Shingles) Vaccine (1 of 2) [facility] Start: 1965 DTaP,Tdap and Td Vaccines (1 - Tdap) DTaP,Tdap and Td Vaccines (1 - Tdap) [facility] Start: 1964 Adult BMI Follow Up Plan Adult BMI Follow Up Plan [facility] Start: 1958 Depression Screening Depression Screening [facility] Start: 1956 Glaucoma screening Diabetes: Retinopathy Screening [facility] Start: 1945 Medicare Annual Wellness Visit Medicare Annual Wellness Visit [facility] Immunizations Immunization Date Immunization Notes Care Provider Fa cility 10-30-2022 Influenza, Seasonal, Quadrivalent, Adjuvanted Lali Aichholz [employer] Work Phone: [facility] 10-19-2020 Influenza, Seasonal, Quadrivalent, Adjuvanted Lali Aichholz [employer] Work Phone: [facility] 11-11-2019 Influenza, Seasonal, Quadrivalent, Adjuvanted Lali Aichholz [employer] Work Phone: [facility] 10-29-2018 influenza, high dose seasonal, preservative-free Lali Nury [facility] 10-29-2018 pneumococcal polysaccharide vaccine, 23 valent Lali Nury [facility] 12-18-2017 influenza, injectabl e, quadrivalent, preservative free Lali Nury [facility] 11-17-2016 Seasonal trivalent influenza vaccine, adjuvanted, preservative free Lali Nury [facility] 10-31-2016 influenza, injectabl e, quadrivalent, preservative free Lali Nury [facility] 09-25-2016 pneumococcal polysaccharide vaccine, 23 valent Lali Nury [facility] 12-11-2015 influenza, high dose seasonal, preservative-free Lali Nury [facility] 11-06-2012 influenza virus vacc ine, whole virus Lali Nury [facility] 11-14-2011 influenza virus vacc ine, whole virus Lali Nury [facility] 11-09-2010 influenza virus vacc ine, whole virus Lali Nury [facility] 11-24-2009 influenza virus vacc ine, whole virus Lali Nury [facility] 11-18-2008 influenza virus vacc ine, whole virus Lali Nury [facility] Payers Date Payer Category Payer Unknown AARP AARP [id number] 2022-Present [address] [place] [address] [id number] 2012 Private Health Insurance [facility] AARP SUPPLEMENT [id number] 2012-Present [phone] [address] [place] [address] [id number] 2011 Medicare [id number] 1959 Medicare [id number] 1959 Unknown [id number] 1945 Unknown [id number] .593 1945 Unknown [id number] 2.16.840.1.860686.3.579.2 .593 1945 Unknown [id number] 2.16.840.1.920210.3.579.2 .593 1945 Unknown [id number] 2.16.840.1.140711.3.579.2 .593 1945 Unknown [id number] [id number] .593 1945 Unknown [id number] [id number] .1259 1945 Unknown [id number] 2.16.840.1.075402.3.579.2 .1259 1945 Unknown [id number] [id number] .1259 1945 Unknown [id number] [id number] .1286 1945 Unknown [id number] 2.16.840.1.518837.3.579.2 .1286 1945 Unknown [id number] 2.16.840.1.135649.3.579.2 .1286 1945 Unknown [id number] .1286 Social History Date Type Detail Facility Start: 10-03-2021 End: 01-20-2023 Tobacco smoking status NHIS Ex-smoker [facility] End: 02-12-1995 History of tobacco use Current smoker [facility] End: 02-12-1995 History of tobacco use Cigarette Smoker [facility] Start: 10-03-2021 End: 01-19-2023 Cigarettes smoked current (pack per day) - Reported 0.5 [facility] Start: 10-03-2021 Tobacco use and exposure Smokeless tobacco non-user [facility] Start: 03-10-2022 Alcohol intake Current non-drinker of alcohol (finding) [facility] Start: 02-15-2022 End: 01-19-2023 Tobacco use panel [facility] Housing Instability Unknown [facility] Start: 1945 Sex Assigned At Female [facility] Start: 07-12-2020 Gender identity Identifies as female gender (finding) [facility] Start: 07-12-2020 Sexual orientation Heterosexual (finding) [facility] Start: 02-21-2023 Alcohol intake Ex-drinker [...] Dates Lead [employer] [id number] - [id number] - [id number] Start: 06-27-2019 Cardiac pacemaker, device (physical object) ([id number]) Pcmkr Meredith [employer] Crd - [id number] - [id number] Start: 06-27-2019 Note 02-06-2023 Telephone Encounter - Lali Arrington CMA - 02/06/2023 9:38 AM EST Note Date & Type Note Facility 02-06-2023 Miscellaneous Notes Formattin g of this note might be different from the original. Called patient to remind them to bring their most current copy of their medication list with them to their appt. Patient verbalizes understanding. documented in this encounter [facility] Telephone encounter Note 02-06-2023 Telephone Encounter - Lali Arrington CMA - 02/06/2023 9:38 AM EST Note Date & Type Note Facility 02-06-2023 Telephone encount er Note Called patient to remind them to bring their most current copy of their medication list with them to their appt. Patient verbalizes understanding. [facility] Clinical Note 04-27-2021 Note Date & Type Note Facility 04-27-2021 Note PROCEDURE: XR FOOT L T MIN 3 VIEWS COMPARISON: None. HISTORY: Pain FINDINGS: BONES:No acute fracture or dislocation. Mild to moderate enthesopathic spurring plantar calcaneus SOFT TISSUES:Negative. No visible soft tissue swelling. EFFUSION:None visible. OTHER: Negative. IMPRESSION: No acute abnormality Electronically authenticated by: CAITLIN HENDRICKSON Date: 2021-04-27 13:13 [facility] Evaluation note Note Date & Type Note Facility Evaluation note Diagnosis Primary hypertension (CMS/HCC)- Primary Unspecified essential hypertension documented in this encounter [facility] Instructions Note Date & Type Note Facility Instructions Not on filedocumented in this en counter [facility] Summary Purpose Family History No Family History Records FoundNo Family History Records FoundNo Family History Records Found Advance Directives No Advanced Directives Records FoundLatest Code Status on File Code Status Date Activated Date Inactivated Comments Full Code 06/25/2019 4:11 PM 06/28/2019 6:33 PM Additional Source Comments INFORMATION SOURCE (unrecogn ized section and content) DATE CREATED AUTHOR 04/29/2021 [facility] DATE CREATED AUTHOR AUTHOR'S ORGANIZ ATION 04/23/2023 [facility] EPIC DATE CREATED AUTHOR AUTHOR'S ORGANIZ ATION 04/28/2023 [facility] Care Teams (unrecognized sec tion and content) [employer] 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 [facility] [employer] [facility]. provides no warranty or guarantee of the accuracy or completeness of information in this document.
[2023-10-25 08:43] LABS: Estimated Average Glucose 114 mg/dL; Glycohemoglobin A1C 5.6 % (4.5-6.2)
[2023-10-25 08:50] LABS: Anion Gap 12.2; BUN Creatinine Ratio 15.3; Calcium 9.8 mg/dL (8.5-10.1); Carbon Dioxide 30.7 mmol/L (21.0-32.0); Chloride 101 mmol/L (98-107); Estimated GFR (African America 51 (>=60); Estimated GFR (Non-African Ame 42 (>=60); Glucose 106 mg/dL (74-106); Potassium 3.9 mmol/L (3.5-5.1); Sodium 140 mmol/L (136-145)
== END 2023-10-25 07:50 | disposition home or self-care (01) ==
LOC: LAB 07:50
PROVIDERS: PCP Nurse Practitioner; Visit Provider Nurse Practitioner
DX: E11.9 Type 2 diabetes mellitus without complications (principal)
CPT/HCPCS: 36415; 80048; 83036